=== PATIENT | female | born 1935 | race Caucasian/White ===

== ENCOUNTER → 2016-11-06 | Outpatient (CLI) | payer OTHER, BC ==
--- NOTE | 2016-11-05 13:14 | DIAGNOSTIC IMAGING REPORT ---
LEFT KNEE 4 OR MORE CLINICAL HISTORY: 81 years-old Female presenting with chronic left knee pain. TECHNIQUE: Bilateral frontal standing views of the knees and lateral, tunnel, and sunrise views of the left knee were obtained. COMPARISON: Correlation made to plain radiographs from 04/11/2015. FINDINGS: The right knee on standing view again demonstrates severe degenerative changes in the lateral compartment with joint space loss and subchondral sclerosis. Relative preservation of the medial compartment. On standing view, there has been interval worsening of degenerative change in the medial compartment of the left knee, which now demonstrates joint space loss and subchondral sclerosis that was not present in March 2015. The lateral compartment appears spared. Minimal osteophytosis at the patellofemoral compartment may be present. Trace left knee joint effusion may be present. No acute fracture. IMPRESSION: Significant interval worsening of degenerative change in the medial compartment of the left knee in comparison to April 06, 2015, which now demonstrates joint space loss and subchondral sclerosis. 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 Electronically signed by: Messi Garduno M.D. 11/05/2016 1:13 PM Dictated Date/Time: 11/05/2016 1:10 PM
[~2016-11-06] MED LIST: CRS/10 PO; LOSA50TA54 PO; MULT-513 PO; vit D PO
== END | disposition home or self-care (01) ==
LOC: C.RDSM 07:17
PROVIDERS: ATTEND Physician Assistant
DX: R52 Pain, unspecified (principal)

== ENCOUNTER → 2016-12-10 | Outpatient (CLI) | payer OTHER, BC ==
--- NOTE | 2016-12-10 15:50 | MAMMOGRAPHY REPORT ---
BILATERAL DIGITAL SCREENING MAMMOGRAM WITH CAD: 12/10/2016 CLINICAL HISTORY: Routine screening. Patient has no complaints. TECHNIQUE: Bilateral CC and MLO views were obtained. Current study was also evaluated with a Compute r Aided Detection (CAD) system. COMPARISON: Comparison is made to exams dated: 11/28/2015 mammogram, 11/15/2014 mammogram, 11/09/2013 m ammogram, 11/07/2012 mammogram, 10/02/2010 mammogram, and 09/06/2009 mammogram - [facility] enter. BREAST COMPOSITION: There are scattered areas of fibroglandular density in both breasts. FINDINGS: There is a stable small grouping of punctate benign-appearing microcalcifications in the 12 :00 left breast, unchanged dating back to at least 2008, therefore likely benign. No new suspicious mass, architectural distortion or cluster of microcalcifications is seen. IMPRESSION: ACR BI-RADS CATEGORY 1: NEGATIVE There is no mammographic evidence of malignancy. A 1 year screening mammogram is recommended. The pa tient will receive written notification of the results. Approximately 10% of breast cancers are not detected with mammography. A negative mammographic report should not delay biopsy if a clinically suggestive mass is present. Manisha aGrcia M.D. ay/:12/10/2016 15:19:07 [employer]: Nikia ESQUIVEL)(M), [facility] letter sent: Normal 1/2 BI-RADS Code: ACR BI-RADS Category 1: Negative
== END | disposition home or self-care (01) ==
LOC: C.MAMM 08:06
PROVIDERS: ATTEND Family Medicine
DX: Z12.31 Encounter for screening mammogram for malignant neoplasm of breast (principal)

== ENCOUNTER 2020-08-17 13:11 | Inpatient (IN) ==
[2020-08-17] MEDS ORDERED: CEFEPIME 2,000 MG/20 ML VIAL IV STA (13:46)
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
[2020-08-17] MEDS ORDERED: SODIUM CHLORIDE 0.9% 1000ML 1,000 ML IV SCH (14:00)
--- NOTE | 2020-08-17 14:19 | XRay Report ---
SINGLE VIEW CHEST CLINICAL HISTORY: Sepsis. FINDINGS: An AP, portable, upright chest radiograph is compared to study dated 06/02/2014 and correlat ed with chest CT dated 02/15/2013. The cardiomediastinal silhouette is unremarkable noting atheroscler otic calcification of the thoracic aorta. Chronic interstitial thickening is similar to previous. No airspace consolidation or large pleural effusion is identified. There is mild bibasilar scarring/atel ectasis. No pneumothorax is seen. The skeletal structures are osteopenic. The bony thorax is grossly intact. IMPRESSION: No active disease in the chest. ACT 112: Negative or not required by law. Electronically signed by: Dimitri Navarro M.D. 08/17/2020 2:18 PM
--- NOTE | 2020-08-17 14:19 | CT Scan Report ---
CT head/brain wo con CLINICAL HISTORY: 85 years-old Female with fall. Acute head and neck injury status post fall TECHNIQUE: Multiple axial CT images of the head were obtained without contrast. A dose lowering tech nique was utilized adhering to the principles of ALARA. COMPARISON: CT cervical spine of same day FINDINGS: No acute intracranial hemorrhage, midline shift, intracranial mass, hydrocephalus, territorial ischem ia or abnormal extra-axial collection. Age-related involutional changes. White matter hypodensities s uggestive of chronic microvascular ischemic disease. The calvarium is intact. Prior bilateral lens repair. The paranasal sinuses, mastoid air cells, and m iddle ear cavities are clear. IMPRESSION: No acute intracranial abnormality or calvarial fracture. ACT 112: Negative or not required by law. The above report was generated using voice recognition software. It may contain grammatical, syntax o r spelling errors. Electronically signed by: Alonso Carrillo M.D. 08/17/2020 2:18 PM
--- NOTE | 2020-08-17 14:26 | CT Scan Report ---
CT SCAN OF THE CERVICAL SPINE CLINICAL HISTORY: Fall. COMPARISON STUDY: No priors. TECHNIQUE: CT scan of the cervical spine is performed from the skull base to the upper thoracic spine . Images are reviewed in the axial, sagittal, and coronal planes. IV contrast was not administered fo r this examination. A dose lowering technique was utilized adhering to the principles of ALARA. CT DOSE: 1048.32 mGy.cm FINDINGS: Skeletal structures: The skeletal structures are osteopenic. There is no evidence of fracture or subl uxation involving the cervical spine. Vertebral body height is maintained. There is minimal anterolis thesis at C3-C4 and C4-C5. Retrolisthesis is noted at C5-C6. There is straightening of the cervical l ordosis. Anterior osteophytes are seen throughout. The odontoid process and lateral masses are intact . The atlantoaxial articulation is preserved noting advanced productive degenerative change. The spin ous processes appear intact. There is moderate to advanced multilevel cervical spondylosis. Uncoverte bral and facet arthropathy contribute to neural foraminal narrowing at most levels. Intervertebral discs: Advanced disc space narrowing is seen at C5-C6. Moderate to advanced narrowing is seen at C6-C7. Central canal: Posterior disc osteophyte complexes at C5-C6 and C6-C7 likely contribute to acquired c ompromise of the central canal. Soft tissues: The prevertebral and paraspinous soft tissues are within normal limits. The thyroid gla nd is enlarged and heterogeneous. Thyroid nodules measure up to 1.6 cm. Coarse calcifications are see n in the right lobe. These have been present dating back to a [address] There is atherosclerotic calcification of the cavernous carotid arteries. Calvarium: The visualized calvarium at the skull base appears intact. Brain parenchyma: Partially visualized brain parenchyma at the skull base is within normal limits. Sinuses and mastoids: The visualized paranasal sinuses are clear. The mastoid air cells are well pneu matized. Lung apices: Clear as visualized. IMPRESSION: 1. There is no evidence of fracture or subluxation involving the cervical spine. 2. Osteopenia and spondylotic change as above. ACT 112: Negative or not required by law. Electronically signed by: Dimitri Navarro M.D. 08/17/2020 2:25 PM
[2020-08-17 14:37] LABS: Alanine Aminotransferase 113 U/L (12-78); Albumin Level 3.2 gm/dl (3.4-5.0); Alkaline Phosphatase 194 U/L (45-117); Aspartate Aminotransferase 123 U/L (15-37); Bilirubin,Total 3.9 mg/dl (0.2-1); Blood Urea Nitrogen 47 mg/dl (7-18); Calcium 9.1 mg/dl (8.5-10.1); Carbon Dioxide 21 mmol/L (21-32); Chloride 101 mmol/L (98-107); Creatinine Clr Calc Pharmacy 15.7 ml/min; Est GFR (African American) 20.9 ml/min; Est GFR (Non-African American) 18.1 ml/min; Globulin 3.1 gm/dl (2.5-4.0); Glucose 221 mg/dl (70-99); Magnesium 2.1 mg/dl (1.8-2.4); Potassium 3.5 mmol/L (3.5-5.1); Sodium 134 mmol/L (136-145); Thyroid Stimulating Hormone 0.869 uIu/ml (0.300-4.500); Total Protein 6.3 gm/dl (6.4-8.2); Troponin I < 0.015 ng/ml (0-0.045)
[2020-08-17 14:38] LABS: Hematocrit (blood only) 34.1 % (37-47); Hemoglobin 12.1 g/dL (12.0-16.0); Mean Corpuscular Hemoglobin 32.7 pg (25-34); Mean Corpuscular Hgb Conc 35.5 g/dL (32-36); Mean Corpuscular Volume 92.2 fL (80-100); Platelet Count 11 K/uL (130-400); RDW Coefficient of Variation 13.2 % (11.5-14.5); RDW Standard Deviation 44.5 fL (36.4-46.3); White Blood Count 6.89 K/uL (4.8-10.8)
[2020-08-17 14:39] LABS: ALC (manual) 0.79 K/uL (1.2-3.4); ANC (manual) 5.62 K/uL (1.4-6.5); Anaplasmosis Smear(Rpt to DOH) Pos for Anaplasma; Eosinophils # (manual) 0.06 K/uL (0-0.5); Eosinophils % (manual) 0.9 %; Lymphocytes # (manual) 0.79 K/uL (1.2-3.4); Lymphocytes % (manual) 11.4 %; Monocytes # (manual) 0.42 K/uL (0.11-0.59); Monocytes % (manual) 6.1 %; Neutrophils # (manual) 5.62 K/uL (1.4-6.5); Neutrophils % (manual) 81.6 %; Platelet Estimate SIGNIFIC DECREASED (Normal)
[2020-08-17] MEDS ORDERED: DOXYCYCLINE HYCLATE 100 MG in DEXTROSE 5% 100 ML IV STA (14:49)
[2020-08-17] MEDS ORDERED: SODIUM CHLORIDE 0.9% 1000ML 1,000 ML IV ONE (14:50)
[2020-08-17] MEDS ORDERED: SODIUM CHLORIDE 0.9% 1000ML 250 ML IV ONE (14:50)
[2020-08-17 15:06] LABS: INR 1.1 (0.9-1.1); Partial Thromboplastin Ratio 1.1; Partial Thromboplastin Time 29.3 Seconds (21.0-31.0); Prothrombin Time 11.3 Seconds (9.0-12.0)
[2020-08-17 15:56] LABS: Appearance Urine Turbid (Clear); Bacteria Urine Automated 4+ (Negative); Blood Urine 3+ (Negative); Color Urine Dark Yellow; Epithelial Cell Urine Auto 20-30 /lpf (0-5); Glucose Urine UA Negative (Negative); Ketones Urine Trace (Negative); Leukocyte Esterase Urine 1+ (Negative); Nitrite Urine Positive (Negative); Protein Urine 2+ (Negative); RBC Urine Automated 0-4 /hpf (0-4); Urobilinogen Urine Negative (Negative); WBC Urine Automated >30 /hpf (0-5)
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
[2020-08-17 16:13] LABS: Bilirubin Urine 1+ (Negative)
[2020-08-17 16:24] LABS: Cast Urine Automated >30 /lpf (0-5)
[2020-08-17] MEDS ORDERED: GLUCAGON FOR INJ 1 MG VIAL SQ PRN (18:50)
[2020-08-17] MEDS ORDERED: DEXTROSE 50% 50 ML SYRINGE IV PRN (18:50)
[2020-08-17] MEDS ORDERED: GLUCOSE 10 TABS/TUBE PO PRN (18:50)
[2020-08-17] MEDS ORDERED: CARBOHYDRATES FOR HYPOGLYCEMIA PO PRN (18:50)
[2020-08-17] MEDS ORDERED: ASPIRIN 81 MG ECTAB PO SCH (18:50)
[2020-08-17] MEDS ORDERED: POLYETHYLENE (MIRALAX) 17 GM PACK PO PRN (18:50)
[2020-08-17] MEDS ORDERED: GLUCOSE 40% GEL 15 GM TUBE PO PRN (18:50)
[2020-08-17] MEDS: ACETAMINOPHEN 325 MG TAB PO PRN (19:18)
[2020-08-17] MEDS: SODIUM CHLORIDE 0.9% 1000ML 1,000 ML IV SCH (19:54)
[2020-08-17] MEDS: INSULIN GLARGINE SOLOSTAR 100 UNITS/ML 3 ML PEN SC SCH (21:05)
[2020-08-17] MEDS: INSULIN ASPART 100 UNITS/ML 3 ML PEN SC SCH ×2 (21:05→21:13)
[2020-08-17] MEDS ORDERED: HYDROmorphone INJ 0.5 MG/0.5 ML SYR IV PRN (22:30)
[2020-08-17] MEDS ORDERED: traMADol HCL 50 MG TABLET PO PRN (22:30)
[2020-08-17] MEDS ORDERED: CEFEPIME CONSULT ACTIVE PRN (23:05)
[2020-08-18] MEDS: DOXYCYCLINE HYCLATE 100 MG in DEXTROSE 5% 100 ML IV SCH ×2 (01:23→13:39)
[2020-08-18] MEDS ORDERED: guaiFENesin SUGAR FREE 200 MG/10 ML UDC PO PRN (03:30)
[2020-08-18] MEDS ORDERED: COUGH DROP (SUGAR FREE) LOZ 24 LOZ/1 BOX BUCCAL PRN (03:30)
[2020-08-18 07:35] LABS: Mean Corpuscular Hgb Conc 34.8 g/dL (32-36); Platelet Count 8 K/uL (130-400)
[2020-08-18 07:42] LABS: Albumin Globulin Ratio 0.8 (0.9-2); Albumin Level 2.6 gm/dl (3.4-5.0); BUN Creatinine Ratio 30.1 (10-20); Bilirubin Direct 2.5 mg/dl (0-0.2); Bilirubin,Total 3.2 mg/dl (0.2-1); Calcium 7.5 mg/dl (8.5-10.1); Creatinine Clr Calc Pharmacy 30.8 ml/min; Est GFR (African American) 46.5 ml/min; Est GFR (Non-African American) 40.1 ml/min; Globulin 3.4 gm/dl (2.5-4.0)
[2020-08-18] MEDS: SODIUM CHLORIDE 0.9% 1000ML 1,000 ML IV SCH (07:50)
[2020-08-18 07:52] LABS: Hematocrit (blood only) 30.2 % (37-47); Hemoglobin 10.5 g/dL (12.0-16.0); Mean Corpuscular Hemoglobin 32.4 pg (25-34); Mean Corpuscular Volume 93.2 fL (80-100); RDW Coefficient of Variation 13.3 % (11.5-14.5); RDW Standard Deviation 45.6 fL (36.4-46.3); Red Blood Count 3.24 M/uL (4.2-5.4); White Blood Count 5.98 K/uL (4.8-10.8)
[2020-08-18] MEDS: INSULIN GLARGINE SOLOSTAR 100 UNITS/ML 3 ML PEN SC SCH ×2 (07:58→20:36)
[2020-08-18] MEDS: INSULIN ASPART 100 UNITS/ML 3 ML PEN SC SCH ×4 (07:58→20:37)
--- NOTE | 2020-08-18 08:03 | CT Scan Report ---
CT OF THE ABDOMEN AND PELVIS WITHOUT CONTRAST CLINICAL HISTORY: Abdominal pain. Recent fall. COMPARISON STUDY: No previous studies for comparison. TECHNIQUE: Axial images of the abdomen and pelvis were obtained without IV contrast. Images were revi ewed in the axial, sagittal, and coronal planes. Automated exposure control was utilized for the jovanna dy. A dose lowering technique was utilized adhering to the principles of ALARA. FINDINGS: Trace bilateral pleural effusions are noted. Associated airspace opacity reflects atelectas is. There is a trace pericardial effusion. A 2 mm right renal calculus is present. There are no urete ral calculi. There is no hydronephrosis or hydroureter. Evaluation of the remainder of the abdomen an d pelvis is suboptimal on this unenhanced exam. There are gallstones within the gallbladder. The gall bladder is not distended. There is no evidence for a bowel obstruction. Unenhanced images of the live r, spleen, adrenal glands and pancreas are unremarkable. There is no biliary or pancreatic ductal dil atation. There is moderate plaque of the abdominal aorta. The appendix is not visualized. There is si gmoid diverticulosis without evidence for acute diverticulitis. No acute fractures identified within visualized skeletal structures. IMPRESSION: 1. 2 mm right renal calculus. No ureteral calculi or hydronephrosis. 2. Cholelithiasis. 3. No bowel obstruction. 4. Trace bilateral pleural effusions and a trace pericardial effusion. ACT 112: Negative or not required by law. Electronically signed by: Patricio Ivey M.D. 08/18/2020 8:02 AM
[2020-08-18] MEDS ORDERED: POTASSIUM CHLORIDE PWD 20 MEQ PACK PO ONE ×2 (08:06→16:00)
[2020-08-18 08:23] LABS: ALC (manual) 1.97 K/uL (1.2-3.4); ANC (manual) 3.77 K/uL (1.4-6.5); Eosinophils # (manual) 0.06 K/uL (0-0.5); Lymphocytes # (manual) 1.97 K/uL (1.2-3.4); Monocytes # (manual) 0.18 K/uL (0.11-0.59); Neutrophils # (manual) 3.77 K/uL (1.4-6.5)
--- NOTE | 2020-08-18 08:49 | Electrocardiogram Report ---
Test Reason : Blood Pressure : / mmHG Vent. Rate : 103 BPM Atrial Rate : 103 BPM P-R Int : 148 ms QRS Dur : 070 ms QT Int : 326 ms P-R-T Axes : 069 -33 060 degrees QTc Int : 427 ms Sinus tachycardia with Premature atrial complexes Left axis deviation Nondiagnostic inferior Q waves Poor R wave progression, consider anterior GA vs. lead placement vs. LVH Abnormal ECG When compared with ECG of 15-FEB-2013 14:04, Premature atrial complexes are now Present Confirmed by Sanjeev Gregg ([id number]) on 08/18/2020 8:48:53 AM Referred By: REFERRED SELF Confirmed By:Sanjeev Gregg
--- NOTE | 2020-08-18 10:07 | XRay Report ---
XR chest 1V portable CLINICAL HISTORY: Shortness of breath. COMPARISON STUDY: Chest radiograph August 17, 2020 FINDINGS: Lung volumes are normal. There are trace bilateral pleural fusions. Mild bibasilar opacitie s are present. There is pulmonary vascular congestion with possible mild pulmonary edema. There is no pneumothorax. IMPRESSION: 1. Pulmonary vascular congestion with suspected mild pulmonary edema. 2. Trace bilateral pleural fusions with bibasilar opacities. ACT 112: Negative or not required by law. Electronically signed by: Patricio Ivey M.D. 08/18/2020 10:05 AM
[2020-08-18] MEDS ORDERED: FUROSEMIDE 20 MG TAB PO ONE (11:45)
--- NOTE | 2020-08-18 14:51 | Hospitalist Progress Note ---
Date of Service August 18, 2020 Assessment & Plan (1) Sepsis: (2) Anaplasmosis: Patient is an 85 yr female with H/O DM II, HTN, dyslipidemia, CKD III presented to ER with complaint of weakness and myalgias x3 days. Sepsis Anaplasmosis Transaminitis, Thrombocytopenia likely due to above Peripheral Smear: showed Intracytoplasmic neutrophilic inclusions Blood/Urine Culture: pending Continue Cefepime, doxycycline Received IV fluids Will transfuse platelets today Monitor LFTs, CBC daily Mild pulmonary edema Likely secondary to IV fluids IV fluids discontinued Saturating well on room air Monitor volume status (3) Fall: (4) Weakness: Multiple falls CT head: No acute intracranial abnormality or calvarial fracture. CT C-spine: No acute fracture Likely due to above Fall precautions PT OT (5) Acute kidney injury superimposed on CKD: YOGI on CKD III Cr:2.36>1.22 Hold Losartan, Sulindac Avoid Nephrotoxic agents as able Monitor renal function Avid NSAIDs (6) Elevated LFTs: Management as above (7) Thrombocytopenia: Likely secondary to anaplasmosis Transfuse PRN (8) Diabetes mellitus, type II: A1c: 5.6 on 06/10/2020 Hold Metformin Continue insulin therapy while hospitalized Monitor BGs (9) HTN (hypertension): Blood pressure relatively low Losartan held due to YOGI Monitor BP (10) Dyslipidemia: Resume Rosuvastatin as able DVT Px SCDs Re:Thrombocytopenia Code Status DNR/DNI Disposition PT/OT prior to discharge Follows with Dr Landry for routine care Admission and Anticipated Discharge Date Admission Date: August 17, 2020 Subjective Patient is seen and examined at bedside States feeling much better today Reports having mild cough today Also states having generalized abdominal discomfort Denies chest pain, dyspnea, nausea, vomiting, diarrhea Updated patient's son over the phone Offers no other complaints Review of Systems Review of Systems: All systems reviewed & are unremarkable except as noted in HPI & below Physical Exam Physical Exam: Physical Exam: Vitals signs as noted above General Appearance:Elderly, Moderately built and nourished, no apparent distress Head: normocephalic, Atraumatic Eyes: normal inspection, EOMI Neck: supple, Trachea midline Respiratory/Chest: Normal breath sounds, Right Basal Crackles Cardiovascular: S1, S2, No murmur Abdomen/GI:Soft, Non tender, Bowel sounds present Extremities/Musculoskeletal:normal inspection, Trace pedal edema Neurologic/Psych:AAOX3, grossly no focal neurological deficits Skin: normal color, warm Results & Data Results & Data ([facility]) Vital Signs (Past 12 Hours) Vital Signs Temp Pulse Pulse Resp BP BP Pulse Ox 08/18/20 14:01 36 C L 82 18 107/67 96 08/18/20 13:59 37 C 90 18 106/54 L 95 08/18/20 13:45 36.8 C 88 20 105/68 96 08/18/20 11:49 36.5 C 89 18 93/58 L 97 08/18/20 08:03 36.5 C 83 18 95/60 L 95 08/18/20 08:00 78 08/18/20 03:20 36.7 C 86 18 95/61 L 95 Laboratory Results Short CBC 08/18/20 Range/Units 05:56 WBC 5.98 (4.8-10.8) K/uL Hgb 10.5 L (12.0-16.0) g/dL Hct 30.2 L (37-47) % Plt Count 8 L* (130-400) K/uL BMP 08/18/20 05:56 Sodium 141 D Potassium 3.0 L Chloride 111 H Carbon Dioxide 21 BUN 37 H Creatinine 1.22 H D Glucose 101 H Calcium 7.5 L D Cardiac Enzymes 08/17/20 08/18/20 Range/Units 13:40 05:56 Total Creatine Kinase 325 H 406 H (26-192) U/L Liver Function 08/18/20 Range/Units 05:56 Total Bilirubin 3.2 H (0.2-1) mg/dl Direct Bilirubin 2.5 H (0-0.2) mg/dl AST 101 H (15-37) U/L ALT 90 H (12-78) U/L Alkaline Phosphatase 174 H (45-117) U/L Albumin 2.6 L (3.4-5.0) gm/dl Urine 08/17/20 Range/Units 15:22 Urine Color Dark Yellow Urine Appearance Turbid A (Clear) Urine pH 5.0 (4.5-7.5) Ur Specific Holliday 1.020 (1.000-1.030) Urine Protein 2+ H (Negative) Urine Glucose (UA) Negative (Negative)
[2020-08-18] MEDS: CEFEPIME 1,000 MG in SYRINGE 0 ML IV SCH (15:46)
[2020-08-19] MEDS: DOXYCYCLINE HYCLATE 100 MG in DEXTROSE 5% 100 ML IV SCH ×2 (02:38→13:07)
[2020-08-19 06:29] LABS: Hematocrit (blood only) 31.1 % (37-47); Hemoglobin 11.2 g/dL (12.0-16.0); Mean Corpuscular Hemoglobin 32.7 pg (25-34); Mean Corpuscular Volume 90.9 fL (80-100); Platelet Count 16 K/uL (130-400); RDW Coefficient of Variation 13.6 % (11.5-14.5); RDW Standard Deviation 45.4 fL (36.4-46.3); Red Blood Count 3.42 M/uL (4.2-5.4); White Blood Count 6.45 K/uL (4.8-10.8)
[2020-08-19 06:30] LABS: Basophils # (auto) 0.01 K/uL (0-0.2); Basophils % (auto) 0.2 %; Eosinophils # (auto) 0.05 K/uL (0-0.5); Eosinophils % (auto) 0.8 %; Immature Granulocytes # (auto) 0.05 K/uL (0.00-0.02); Immature Granulocytes % (auto) 0.8 %; Lymphocytes # (auto) 1.88 K/uL (1.2-3.4); Lymphocytes % (auto) 29.1 %; Monocytes # (auto) 0.99 K/uL (0.11-0.59); Monocytes % (auto) 15.3 %; Neutrophils # (auto) 3.47 K/uL (1.4-6.5); Neutrophils % (auto) 53.8 %; Platelet Estimate SIGNIFIC DECREASED (Normal)
[2020-08-19 06:34] LABS: Albumin Globulin Ratio 0.9 (0.9-2); Albumin Level 2.8 gm/dl (3.4-5.0); BUN Creatinine Ratio 28.1 (10-20); Bilirubin,Total 2.2 mg/dl (0.2-1); Calcium 8.2 mg/dl (8.5-10.1); Creatinine Clr Calc Pharmacy 40.4 ml/min; Est GFR (African American) 64.5 ml/min; Est GFR (Non-African American) 55.6 ml/min; Magnesium 1.8 mg/dl (1.8-2.4); Potassium 3.1 mmol/L (3.5-5.1); Total Protein 5.8 gm/dl (6.4-8.2)
[2020-08-19] MEDS ORDERED: POTASSIUM CHLORIDE CRTAB 20 MEQ TABCR PO ONE ×2 (08:02→16:00)
[2020-08-19] MEDS: INSULIN ASPART 100 UNITS/ML 3 ML PEN SC SCH ×4 (08:42→20:44)
[2020-08-19] MEDS: INSULIN GLARGINE SOLOSTAR 100 UNITS/ML 3 ML PEN SC SCH ×2 (08:43→21:10)
[2020-08-19] MEDS ORDERED: Nursing to Pharmacy Communication SCH (10:45)
[2020-08-19] MEDS ORDERED: bisacodyL 5 MG TABEC PO PRN (11:52)
[2020-08-19] MEDS ORDERED: bisacodyL 5 MG TABEC PO ONE (11:52)
[2020-08-19] MEDS: CEFEPIME 1,000 MG in SYRINGE 0 ML IV SCH (15:27)
[2020-08-19] MEDS ORDERED: ASPIRIN 81 MG ECTAB PO SCH (16:00)
--- NOTE | 2020-08-19 17:04 | Hospitalist Progress Note ---
Date of Service August 19, 2020 Assessment & Plan (1) Sepsis: (2) Anaplasmosis: Patient is an 85 yr female with H/O DM II, HTN, dyslipidemia, CKD III presented to ER with complaint of weakness and myalgias x3 days. Sepsis Anaplasmosis Transaminitis, Thrombocytopenia likely due to above Rule out Bacteremia Peripheral Smear: showed Intracytoplasmic neutrophilic inclusions S/P 1 unit Platelet transfusion Blood Culture: 03/19 : Gram-positive bacilli--likely contamination We will repeat blood cultures. Continue Doxycycline Received IV fluids Monitor LFTs, Platelet count Mild pulmonary edema Likely secondary to IV fluids IV fluids discontinued Saturating well on room air Monitor volume status Improved Suspected UTI Urine Cx: Gram Negative bacilli Received Cefepime Day #3 Hypokalemia Replace electrolytes as needed Monitor (3) Fall: (4) Weakness: Multiple falls CT head: No acute intracranial abnormality or calvarial fracture. CT C-spine: No acute fracture Likely due to above Fall precautions PT OT (5) Acute kidney injury superimposed on CKD: YOGI on CKD III Cr:2.36>1.22> 0.93 Hold Losartan, Sulindac Avoid Nephrotoxic agents as able Monitor renal function Avid NSAIDs (6) Elevated LFTs: Management as above (7) Thrombocytopenia: Likely secondary to anaplasmosis Transfuse PRN (8) Diabetes mellitus, type II: A1c: 5.6 on 06/10/2020 Hold Metformin Continue insulin therapy while hospitalized Monitor BGs (9) HTN (hypertension): Blood pressure relatively low Losartan held due to YOGI Monitor BP (10) Dyslipidemia: Resume Rosuvastatin DVT Px SCDs Re:Thrombocytopenia Code Status DNR/DNI Disposition PT/OT prior to discharge Follows with Dr Landry for routine care Admission and Anticipated Discharge Date Admission Date: August 17, 2020 Subjective Patient is seen and examined at bedside Reports constipation Otherwise feels well Denies chest pain, dyspnea, nausea, vomiting, diarrhea, abd pain Offers no other complaints Review of Systems Review of Systems: All systems reviewed & are unremarkable except as noted in HPI & below Physical Exam Physical Exam: Physical Exam: Vitals signs as noted above General Appearance:Elderly, Moderately built and nourished, no apparent distress Head: normocephalic, Atraumatic Eyes: normal inspection, EOMI Neck: supple, Trachea midline Respiratory/Chest: Normal breath sounds, CTA Cardiovascular: S1, S2, No murmur Abdomen/GI:Soft, Non tender, Bowel sounds present Extremities/Musculoskeletal:normal inspection, Trace pedal edema Neurologic/Psych:AAOX3, grossly no focal neurological deficits Skin: normal color, warm Results & Data Results & Data ([facility]) Vital Signs (Past 12 Hours) Vital Signs Temp Pulse Pulse Resp BP BP Pulse Ox 08/19/20 16:14 36.6 C 90 17 129/61 95 08/19/20 11:59 36.6 C 94 H 17 113/72 96 08/19/20 08:09 36.7 C 95 H 17 121/69 93 08/19/20 08:00 88 Laboratory Results Short CBC 08/19/20 Range/Units 05:30 WBC 6.45 (4.8-10.8) K/uL Hgb 11.2 L (12.0-16.0) g/dL Hct 31.1 L (37-47) % Plt Count 16 L* D (130-400) K/uL BMP 08/19/20 05:30 Sodium 139 Potassium 3.1 L Chloride 107 Carbon Dioxide 24 BUN 26 H Creatinine 0.93 Glucose 118 H Calcium 8.2 L Liver Function 08/19/20 Range/Units 05:30 Total Bilirubin 2.2 H (0.2-1) mg/dl AST 97 H (15-37) U/L ALT 91 H (12-78) U/L Alkaline Phosphatase 202 H (45-117) U/L Albumin 2.8 L (3.4-5.0) gm/dl
[2020-08-20] MEDS: DOXYCYCLINE HYCLATE 100 MG in DEXTROSE 5% 100 ML IV SCH ×2 (01:24→13:08)
[2020-08-20 07:30] LABS: ALC (manual) 1.23 K/uL (1.2-3.4); ANC (manual) 3.53 K/uL (1.4-6.5); Basophils # (manual) 0.05 K/uL (0-0.2); Basophils % (manual) 0.9 %; Eosinophils # (manual) 0.05 K/uL (0-0.5); Eosinophils % (manual) 0.9 %; Hematocrit (blood only) 29.5 % (37-47); Hemoglobin 10.4 g/dL (12.0-16.0); Lymphocytes # (manual) 1.23 K/uL (1.2-3.4); Lymphocytes % (manual) 20.9 %; Mean Corpuscular Hemoglobin 32.8 pg (25-34); Mean Corpuscular Hgb Conc 35.3 g/dL (32-36); Mean Corpuscular Volume 93.1 fL (80-100); Metamyelocytes # (manual) 0.05 K/uL (0-0); Metamyelocytes % (manual) 0.9 %; Monocytes # (manual) 0.93 K/uL (0.11-0.59); Monocytes % (manual) 15.7 %; Myelocytes # (manual) 0.05 K/uL (0-0); Myelocytes % (manual) 0.9 %; Neutrophils # (manual) 3.53 K/uL (1.4-6.5); Neutrophils % (manual) 59.8 %; Platelet Count 26 K/uL (130-400); Platelet Estimate SIGNIFIC DECREASED (Normal); RDW Coefficient of Variation 13.8 % (11.5-14.5); RDW Standard Deviation 46.6 fL (36.4-46.3); Red Blood Count 3.17 M/uL (4.2-5.4); Target Cells 1+
[2020-08-20 07:46] LABS: Albumin Globulin Ratio 0.9 (0.9-2); Albumin Level 2.7 gm/dl (3.4-5.0); BUN Creatinine Ratio 28.5 (10-20); Bilirubin,Total 1.9 mg/dl (0.2-1); Calcium 8.2 mg/dl (8.5-10.1); Creatinine Clr Calc Pharmacy 50.4 ml/min; Est GFR (Non-African American) 73.4 ml/min; Magnesium 1.9 mg/dl (1.8-2.4); Potassium 3.6 mmol/L (3.5-5.1); Total Protein 5.7 gm/dl (6.4-8.2)
[2020-08-20] MEDS: ROSUVASTATIN CALCIUM 10 MG TAB PO SCH (08:43)
[2020-08-20] MEDS: INSULIN ASPART 100 UNITS/ML 3 ML PEN SC SCH ×4 (08:43→20:40)
[2020-08-20] MEDS: INSULIN GLARGINE SOLOSTAR 100 UNITS/ML 3 ML PEN SC SCH ×2 (08:43→20:40)
[2020-08-20] MEDS: ACETAMINOPHEN 325 MG TAB PO PRN (15:57)
--- NOTE | 2020-08-20 17:30 | Hospitalist Progress Note ---
Date of Service August 20, 2020 Assessment & Plan (1) Sepsis: (2) Anaplasmosis: Patient is an 85 yr female with H/O DM II, HTN, dyslipidemia, CKD III presented to ER with complaint of weakness and myalgias x3 days. Sepsis Anaplasmosis Transaminitis, Thrombocytopenia likely due to above Rule out Bacteremia Peripheral Smear: showed Intracytoplasmic neutrophilic inclusions S/P 1 unit Platelet transfusion Blood Culture: 03/19 : Corynebacterium species--likely contamination Repeat blood cultures.: No growth to date Continue Doxycycline Received IV fluids Monitor LFTs, Platelet count Thrombocytopenia improving Mild pulmonary edema Likely secondary to IV fluids IV fluids discontinued Saturating well on room air Monitor volume status Improved Suspected UTI Urine Cx: Gram Negative bacilli (6000) Received Cefepime Day #3 Hypokalemia Replace electrolytes as needed Monitor (3) Fall: (4) Weakness: Multiple falls CT head: No acute intracranial abnormality or calvarial fracture. CT C-spine: No acute fracture Likely due to above Fall precautions PT OT (5) Acute kidney injury superimposed on CKD: YOGI on CKD III Cr:2.36>1.22> 0.93/>0.74 Hold Losartan, Sulindac Avoid Nephrotoxic agents as able Monitor renal function Avid NSAIDs (6) Elevated LFTs: Management as above (7) Thrombocytopenia: Likely secondary to anaplasmosis Transfuse PRN (8) Diabetes mellitus, type II: A1c: 5.6 on 06/10/2020 Hold Metformin Continue insulin therapy while hospitalized Monitor BGs (9) HTN (hypertension): Blood pressure relatively low Losartan held due to YOGI Monitor BP (10) Dyslipidemia: Continue Rosuvastatin DVT Px SCDs Re:Thrombocytopenia Code Status DNR/DNI Disposition PT/OT prior to discharge Follows with Dr Landry for routine care Admission and Anticipated Discharge Date Admission Date: August 17, 2020 Subjective Patient is seen and examined at bedside No new complaints Denies chest pain, dyspnea, nausea, vomiting, diarrhea, abd pain Eager to get discharged Review of Systems Review of Systems: All systems reviewed & are unremarkable except as noted in HPI & below Physical Exam Physical Exam: Physical Exam: Vitals signs as noted above General Appearance:Elderly, Moderately built and nourished, no apparent distress Head: normocephalic, Atraumatic Eyes: normal inspection, EOMI Neck: supple, Trachea midline Respiratory/Chest: Normal breath sounds, CTA Cardiovascular: S1, S2, No murmur Abdomen/GI:Soft, Non tender, Bowel sounds present Extremities/Musculoskeletal:normal inspection, Trace pedal edema Neurologic/Psych:AAOX3, grossly no focal neurological deficits Skin: normal color, warm Results & Data Results & Data ([facility]) Vital Signs (Past 12 Hours) Vital Signs Temp Pulse Pulse Resp BP BP Pulse Ox 08/20/20 16:00 36.6 C 92 H 20 95/60 L 95 08/20/20 06:34 36.6 C 92 H 16 121/71 92 Laboratory Results Short CBC 08/20/20 Range/Units 06:25 WBC 5.90 (4.8-10.8) K/uL Hgb 10.4 L (12.0-16.0) g/dL Hct 29.5 L (37-47) % Plt Count 26 L* D (130-400) K/uL BMP 08/20/20 06:25 Sodium 139 Potassium 3.6 D Chloride 108 H Carbon Dioxide 25 BUN 21 H Creatinine 0.74 Glucose 109 H Calcium 8.2 L Liver Function 08/20/20 Range/Units 06:25 Total Bilirubin 1.9 H (0.2-1) mg/dl AST 71 H (15-37) U/L ALT 82 H (12-78) U/L Alkaline Phosphatase 195 H (45-117) U/L Albumin 2.7 L (3.4-5.0) gm/dl
[2020-08-20] MEDS: DOXYCYCLINE HYCLATE 100 MG CAP PO SCH (20:33)
[2020-08-21 07:02] LABS: Hematocrit (blood only) 28.2 % (37-47); Hemoglobin 9.9 g/dL (12.0-16.0); Mean Corpuscular Hemoglobin 31.9 pg (25-34); Mean Corpuscular Hgb Conc 35.1 g/dL (32-36); RDW Coefficient of Variation 14.1 % (11.5-14.5); RDW Standard Deviation 46.9 fL (36.4-46.3); White Blood Count 5.59 K/uL (4.8-10.8)
[2020-08-21 07:12] LABS: Basophils # (auto) 0.01 K/uL (0-0.2); Basophils % (auto) 0.2 %; Eosinophils # (auto) 0.04 K/uL (0-0.5); Eosinophils % (auto) 0.7 %; Hypogranular Neutrophils 1+; Immature Granulocytes # (auto) 0.07 K/uL (0.00-0.02); Immature Granulocytes % (auto) 1.3 %; Lymphocytes # (auto) 1.74 K/uL (1.2-3.4); Lymphocytes % (auto) 31.1 %; Mean Platelet Volume 13.6 fL (7.4-10.4); Monocytes # (auto) 1.34 K/uL (0.11-0.59); Neutrophils # (auto) 2.39 K/uL (1.4-6.5); Neutrophils % (auto) 42.7 %; Platelet Count 54 K/uL (130-400); Platelet Estimate Decreased (Normal); Target Cells 1+
[2020-08-21 07:18] LABS: Albumin Level 2.7 gm/dl (3.4-5.0); Calcium 8.6 mg/dl (8.5-10.1); Creatinine Clr Calc Pharmacy 59.2 ml/min; Est GFR (African American) 94.1 ml/min; Est GFR (Non-African American) 81.2 ml/min; Magnesium 1.8 mg/dl (1.8-2.4); Potassium 3.5 mmol/L (3.5-5.1)
[2020-08-21 07:21] LABS: Albumin Globulin Ratio 0.9 (0.9-2); Bilirubin,Total 1.5 mg/dl (0.2-1); Globulin 2.9 gm/dl (2.5-4.0); Total Protein 5.6 gm/dl (6.4-8.2)
[2020-08-21] MEDS: INSULIN GLARGINE SOLOSTAR 100 UNITS/ML 3 ML PEN SC SCH ×2 (09:03→20:47)
[2020-08-21] MEDS: DOXYCYCLINE HYCLATE 100 MG CAP PO SCH ×2 (09:07→20:36)
[2020-08-21] MEDS: ROSUVASTATIN CALCIUM 10 MG TAB PO SCH (09:07)
[2020-08-21] MEDS: INSULIN ASPART 100 UNITS/ML 3 ML PEN SC SCH ×4 (09:07→20:53)
--- NOTE | 2020-08-21 15:28 | Hospitalist Progress Note ---
Date of Service August 21, 2020 Assessment & Plan (1) Sepsis: (2) Anaplasmosis: Patient is an 85 yr female with H/O DM II, HTN, dyslipidemia, CKD III presented to ER with complaint of weakness and myalgias x3 days. Sepsis Anaplasmosis Transaminitis, Thrombocytopenia likely due to above Rule out Bacteremia Peripheral Smear: showed Intracytoplasmic neutrophilic inclusions S/P 1 unit Platelet transfusion Blood Culture: 03/19 : Corynebacterium species--likely contamination Coagulase-negative staph not lugdunensis Repeat blood cultures.: No growth to date Continue Doxycycline Received IV fluids Monitor LFTs, Platelet count Platelet counts improved to 54K Follow up final cultures Mild pulmonary edema Likely secondary to IV fluids IV fluids discontinued Saturating well on room air Monitor volume status Improved Suspected UTI Urine Cx: Gram Negative bacilli (6000) Received Cefepime Day #3 Hypokalemia Replace electrolytes as needed Monitor (3) Fall: (4) Weakness: Multiple falls CT head: No acute intracranial abnormality or calvarial fracture. CT C-spine: No acute fracture Likely due to above Fall precautions PT OT (5) Acute kidney injury superimposed on CKD: YOGI on CKD III Cr:2.36>1.22> 0.93/>0.74 Hold Losartan, Sulindac Avoid Nephrotoxic agents as able Monitor renal function Avid NSAIDs (6) Elevated LFTs: Management as above (7) Thrombocytopenia: Likely secondary to anaplasmosis Transfuse PRN (8) Diabetes mellitus, type II: A1c: 5.6 on 06/10/2020 Hold Metformin Continue insulin therapy while hospitalized Monitor BGs (9) HTN (hypertension): Blood pressure relatively low Losartan held due to YOGI Monitor BP (10) Dyslipidemia: Continue Rosuvastatin DVT Px SCDs Re:Thrombocytopenia Code Status DNR/DNI Disposition PT/OT prior to discharge Follows with Dr Landry for routine care Admission and Anticipated Discharge Date Admission Date: August 17, 2020 Subjective Patient is seen and examined at bedside States feeling well today Denies chest pain, dyspnea, nausea, vomiting, diarrhea, abd pain Offers no complaints Review of Systems Review of Systems: All systems reviewed & are unremarkable except as noted in HPI & below Physical Exam Physical Exam: Physical Exam: Vitals signs as noted above General Appearance:Elderly, Moderately built and nourished, no apparent distress Head: normocephalic, Atraumatic Eyes: normal inspection, EOMI Neck: supple, Trachea midline Respiratory/Chest: Normal breath sounds, CTA Cardiovascular: S1, S2, No murmur Abdomen/GI:Soft, Non tender, Bowel sounds present Extremities/Musculoskeletal:normal inspection, Trace pedal edema Neurologic/Psych:AAOX3, grossly no focal neurological deficits Skin: normal color, warm Results & Data Results & Data ([facility]) Vital Signs (Past 12 Hours) Vital Signs Temp Pulse Resp BP Pulse Ox 08/21/20 05:58 37 C 93 H 16 101/56 L 94 Laboratory Results Short CBC 08/21/20 Range/Units 06:34 WBC 5.59 (4.8-10.8) K/uL Hgb 9.9 L (12.0-16.0) g/dL Hct 28.2 L (37-47) % Plt Count 54 L D (130-400) K/uL BMP 08/21/20 06:34 Sodium 139 Potassium 3.5 Chloride 108 H Carbon Dioxide 23 BUN 23 H Creatinine 0.63 Glucose 109 H Calcium 8.6 Liver Function 08/21/20 Range/Units 06:34 Total Bilirubin 1.5 H (0.2-1) mg/dl AST 55 H (15-37) U/L ALT 72 (12-78) U/L Alkaline Phosphatase 173 H (45-117) U/L Albumin 2.7 L (3.4-5.0) gm/dl
[2020-08-21 22:07] LABS: Hematocrit (blood only) 31.1 % (37-47); Hemoglobin 10.8 g/dL (12.0-16.0); Mean Corpuscular Hemoglobin 33.1 pg (25-34); Mean Corpuscular Hgb Conc 34.7 g/dL (32-36); Mean Corpuscular Volume 95.4 fL (80-100); Mean Platelet Volume 14.3 fL (7.4-10.4); Platelet Count 87 K/uL (130-400); RDW Coefficient of Variation 14.1 % (11.5-14.5); RDW Standard Deviation 48.5 fL (36.4-46.3); Red Blood Count 3.26 M/uL (4.2-5.4); White Blood Count 5.75 K/uL (4.8-10.8)
[2020-08-21 22:08] LABS: Basophils # (auto) 0.01 K/uL (0-0.2); Basophils % (auto) 0.2 %; Eosinophils # (auto) 0.03 K/uL (0-0.5); Eosinophils % (auto) 0.5 %; Immature Granulocytes # (auto) 0.08 K/uL (0.00-0.02); Immature Granulocytes % (auto) 1.4 %; Lymphocytes # (auto) 1.87 K/uL (1.2-3.4); Lymphocytes % (auto) 32.5 %; Monocytes # (auto) 1.31 K/uL (0.11-0.59); Monocytes % (auto) 22.8 %; Neutrophils # (auto) 2.45 K/uL (1.4-6.5); Neutrophils % (auto) 42.6 %; Platelet Estimate Decreased (Normal)
[2020-08-22 07:42] LABS: Hematocrit (blood only) 29.3 % (37-47); Mean Corpuscular Hemoglobin 31.7 pg (25-34); Mean Corpuscular Hgb Conc 34.1 g/dL (32-36); Mean Platelet Volume 13.1 fL (7.4-10.4); Platelet Count 102 K/uL (130-400); Platelet Estimate Decreased (Normal); RDW Coefficient of Variation 14.4 % (11.5-14.5); RDW Standard Deviation 48.1 fL (36.4-46.3); Red Blood Count 3.15 M/uL (4.2-5.4); White Blood Count 5.49 K/uL (4.8-10.8)
[2020-08-22 07:55] LABS: BUN Creatinine Ratio 31.2 (10-20); Calcium 8.3 mg/dl (8.5-10.1); Creatinine Clr Calc Pharmacy 54.9 ml/min; Est GFR (African American) 91.8 ml/min; Est GFR (Non-African American) 79.2 ml/min; Potassium 3.7 mmol/L (3.5-5.1)
[2020-08-22] MEDS: ROSUVASTATIN CALCIUM 10 MG TAB PO SCH (08:59)
[2020-08-22] MEDS: DOXYCYCLINE HYCLATE 100 MG CAP PO SCH (08:59)
[2020-08-22] MEDS: INSULIN ASPART 100 UNITS/ML 3 ML PEN SC SCH ×2 (09:01→12:39)
[2020-08-22] MEDS: INSULIN GLARGINE SOLOSTAR 100 UNITS/ML 3 ML PEN SC SCH (09:02)
--- NOTE | 2020-08-22 12:14 | Hospitalist Progress Note ---
Date of Service August 22, 2020 Assessment & Plan (1) Sepsis: (2) Anaplasmosis: Patient is an 85 yr female with H/O DM II, HTN, dyslipidemia, CKD III presented to ER with complaint of weakness and myalgias x3 days. Sepsis Anaplasmosis Transaminitis, Thrombocytopenia likely due to above Rule out Bacteremia Peripheral Smear: showed Intracytoplasmic neutrophilic inclusions S/P 1 unit Platelet transfusion Blood Culture: 03/19 : Corynebacterium species--likely contamination Coagulase-negative staph not lugdunensis Repeat blood cultures.: No growth to date Continue Doxycycline Received IV fluids LFTs improved Platelet count improved to 102K Mild pulmonary edema Likely secondary to IV fluids IV fluids discontinued Saturating well on room air Monitor volume status Resolved Suspected UTI Urine Cx: Gram Negative bacilli (6000) Received Cefepime Day #3 Hypokalemia Replace electrolytes as needed Monitor (3) Fall: (4) Weakness: Multiple falls CT head: No acute intracranial abnormality or calvarial fracture. CT C-spine: No acute fracture Likely due to above Fall precautions PT OT (5) Acute kidney injury superimposed on CKD: YOGI on CKD III Cr:2.36>1.22> 0.93>0.74>0.68 Hold Losartan, Sulindac Avoid Nephrotoxic agents as able Monitor renal function Avid NSAIDs (6) Elevated LFTs: Management as above (7) Thrombocytopenia: Likely secondary to anaplasmosis Transfuse PRN (8) Diabetes mellitus, type II: A1c: 5.6 on 06/10/2020 Hold Metformin Continue insulin therapy while hospitalized Monitor BGs (9) HTN (hypertension): Blood pressure relatively low Losartan held due to YOGI Monitor BP (10) Dyslipidemia: Continue Rosuvastatin DVT Px SCDs Re:Thrombocytopenia Code Status DNR/DNI Disposition Home Admission and Anticipated Discharge Date Admission Date: August 17, 2020 Subjective Patient is seen and examined at bedside No new complaints Eager to get discharged Denies chest pain, dyspnea, nausea, vomiting, diarrhea, abd pain Review of Systems Review of Systems: All systems reviewed & are unremarkable except as noted in HPI & below Physical Exam 2 Physical Exam: Physical Exam: Vitals signs as noted above General Appearance:Elderly, Moderately built and nourished, no apparent distress Head: normocephalic, Atraumatic Eyes: normal inspection, EOMI Neck: supple, Trachea midline Respiratory/Chest: Normal breath sounds, CTA Cardiovascular: S1, S2, No murmur Abdomen/GI:Soft, Non tender, Bowel sounds present Extremities/Musculoskeletal:normal inspection, Trace pedal edema Neurologic/Psych:AAOX3, grossly no focal neurological deficits Skin: normal color, warm Results & Data Results & Data ([facility]) Vital Signs (Past 12 Hours) Vital Signs Temp Pulse Pulse Resp BP Pulse Ox 08/22/20 12:07 36.5 C 89 20 115/73 96 08/22/20 07:30 36.7 C 73 21 136/70 95 08/22/20 07:26 36.7 C 89 16 124/62 93 Laboratory Results Short CBC 08/21/20 08/22/20 Range/Units 20:48 06:33 WBC 5.75 5.49 (4.8-10.8) K/uL Hgb 10.8 L 10.0 L (12.0-16.0) g/dL Hct 31.1 L 29.3 L (37-47) % Plt Count 87 L D 102 L (130-400) K/uL BMP 08/22/20 06:33 Sodium 140 Potassium 3.7 Chloride 108 H Carbon Dioxide 25 BUN 21 H Creatinine 0.68 Glucose 100 H Calcium 8.3 L
--- NOTE | 2020-08-22 12:24 | Discharge Summary ---
Date of Service August 22, 2020 Admission HPI Per Admitting Provider Pt is 85 y/o F with PMH DM II, HTN, dyslipidemia, CKD III presented to ER with complaint of weakness and myalgias x3 days. Patient states 3 days ago was going to bed and fell into the bed and became wedged between the bed and wall and she was unable to get up. Patient states was on floor for approximately 10 hours before she called her grandson to help get her up. Patient states prior to fall she denies any known dizziness, chest pain, shortness of breath. She does not believe she had any loss of consciousness as she remembers lying on floor and remembers watching the clock throughout the night. Past several days has had generalized weakness and generalized myalgias and arthralgias. Reports decreased appetite and decreased oral intake. Has had decreased urine output. States her face felt flushed but she had no known fever. Denies any other rashes. Patient states she usually ambulates with use of cane. Denies any known tick bites. She does have a dog. Denies N/V/D/C, CRAMER, dizziness, vision changes, neck pain, CP, SOB, orthopnea, palpitations, cough, sore throat, choking, otalgia, rhinorrhea, abdominal pain, paresthesias, increased extremity edema, hematuria, dysuria, urinary frequency. Admission Exam Per Admitting Provider Physical Exam Physical Exam: General: no distress, WDWN Head: normocephalic, atraumatic Eyes: PERRL, EOM's intact, conjunctiva non-injected, anicteric ENT: normal inspection external ears, nose, mucous membranes moist Neck: supple, trachea midline Lungs: clear, no respiratory distress, no wheezing/rhonchi/rales CV: tachycardia at 100, regular rhythm, no murmur, trace pretibial edema Abd: normal BS, soft, non-tender Ext: no cyanosis, no calf tenderness Neuro: A&O x 3, no focal deficits noted, normal affect Skin: warm, dry, face flushed Principal Diagnosis Sepsis Anaplasmosis Acute kidney injury Discharge Data Allergies Allergy/AdvReac Type Severity Reaction Status Date / Time No Known Allergies Allergy Unverified 08/17/20 14:41 Consultations 08/17/20 15:02 ED Decision to Admit Stat Procedures Performed CT head: No acute intracranial abnormality or calvarial fracture. CT C-spine: No acute fracture CT Neck: 1. There is no evidence of fracture or subluxation involving the cervical spine. 2. Osteopenia and spondylotic change as above. CT ABD: 1. 2 mm right renal calculus. No ureteral calculi or hydronephrosis. 2. Cholelithiasis. 3. No bowel obstruction. 4. Trace bilateral pleural effusions and a trace pericardial effusion. CXR: 1. Pulmonary vascular congestion with suspected mild pulmonary edema. 2. Trace bilateral pleural fusions with bibasilar opacities. Ordered Studies 08/17/20 13:46 CT head/brain wo con Stat 08/17/20 13:52 CT cervical spine wo con Stat 08/17/20 22:31 CT abd pelvis wo con Urgent Hospital Course (1) Sepsis: (2) Anaplasmosis: Patient is an 85 yr female with H/O DM II, HTN, dyslipidemia, CKD III presented to ER with complaint of weakness and myalgias x3 days. Sepsis Anaplasmosis Transaminitis, Thrombocytopenia likely due to above Rule out Bacteremia Peripheral Smear: showed Intracytoplasmic neutrophilic inclusions S/P 1 unit Platelet transfusion Blood Culture: 03/19 : Corynebacterium species--likely contamination Coagulase-negative staph not lugdunensis Repeat blood cultures.: No growth to date Continue Doxycycline Received IV fluids LFTs improved Platelet count improved to 102K Mild pulmonary edema Likely secondary to IV fluids IV fluids discontinued Saturating well on room air Monitor volume status Resolved Suspected UTI Urine Cx: Gram Negative bacilli (6000) Received Cefepime Day #3 Hypokalemia Replace electrolytes as needed Monitor (3) Fall: (4) Weakness: Multiple falls CT head: No acute intracranial abnormality or calvarial fracture. CT C-spine: No acute fracture Likely due to above Fall precautions PT OT (5) Acute kidney injury superimposed on CKD: YOGI on CKD III Cr:2.36>1.22> 0.93>0.74>0.68 Hold Losartan, Sulindac Avoid Nephrotoxic agents as able Monitor renal function Avid NSAIDs (6) Elevated LFTs: Management as above (7) Thrombocytopenia: Likely secondary to anaplasmosis Transfuse PRN (8) Diabetes mellitus, type II: A1c: 5.6 on 06/10/2020 Hold Metformin Continue insulin therapy while hospitalized Monitor BGs (9) HTN (hypertension): Blood pressure relatively low Losartan held due to YOGI Monitor BP (10) Dyslipidemia: Continue Rosuvastatin DVT Px SCDs Re:Thrombocytopenia Code Status DNR/DNI Disposition Home Total Time Total Time Spent Total Time Spent (In Minutes): 42 minutes Total Time Includes: Examination of the Patient, Discharge Planning, Medication Reconciliation, Communication With Other Providers and Other Discharge Plan Discharge Items Patient Disposition: Home - Self-Care Reason For Visit: ANAPLASMOSIS Discharge Diagnosis: Sepsis Anaplasmosis Acute kidney injury Condition on Discharge: Serious Activity: Per Instructions section Exercise/Sports: Gradually increase as tolerated Non-emergency contact: Primary Care Provider Call non-emergency contact if: you have any medication questions, your symptoms worsen, your pain is not controlled, your pain is concerning for you and you have a fever Follow-up/Referrals: Deena Landry DO [Primary Care Provider] - (Date & Time 08/25/2020 2:20 PM Provider Deena Landry DO Department [facility] ) Diet: Carb Consistent or DM2 and Heart Healthy Addtl Attending Provider Instructions: Follow up with your PCP on 08/25/2020 2:20 PM Complete the antibiotic course (Doxycycline) for Anaplasmosis as prescribed Your Blood Pressure is relatively low during your hospital stay. Will decrease your losartan to 25mg daily. Further adjustment of your medications as per your Primary Care Physician. Seek immediate medical attention if your symptoms reoccur or worsen Please take all medications as instructed on discharge list below. Please call if you have any questions or problems. You can reach a [facility] hospitalist on duty at [facility] 24 hours a day by calling [phone] Pending Studies at Discharge: Yes Studies:: Repeat Blood Cultures Stand-Alone Forms: My [facility], Smoking Cessation Medications and DC Order Prescriptions: New doxycycline hyclate 100 mg Capsule 100 mg PO BID Qty: 20 RF: 0 Continued metformin 500 mg tablet 500 mg PO DAILY RF: 0 sulindac 200 mg tablet 200 mg PO DAILY PRN (Reason: Pain) RF: 0 rosuvastatin 10 mg tablet 10 mg PO DAILY RF: 0 aspirin 81 mg Tablet,Delayed Release (Dr/Ec) 81 mg PO USEASDIRECTD RF: 0 Changed losartan 50 mg tablet 25 mg PO DAILY Qty: 0 RF: 0 Discharge Orders: Discharge Order (Routine); Ordered 08/22/20 Ordered By: Maldonado Patricio/Other Patient Handouts: Understanding Type 2 Diabetes Admission Data Admit Date/Time: 08/17/20 15:17 Attending Provider: Maldonado Moy Admit Provider: Romario Alvarado Primary Care Provider: Deena Landry Other Providers: Romario Alvarado Other Interventions: Discharge Summary Assessment (RN) Last Done: 08/22/20 12:49
== END 2020-08-22 13:40 | disposition home or self-care (01) | DRG 872 ==
LOC: ED 13:11 → 2S 15:17 → SUATTDRO 15:17 → 2S 17:27 → 3N 08-20 02:57

== ENCOUNTER 2021-10-07 12:25 | Inpatient (IN) ==
[2021-10-07] MEDS ORDERED: ONDANSETRON INJ 2 MG/ML 2 ML VIAL IV STA (12:40)
[2021-10-07] MEDS ORDERED: SODIUM CHLORIDE 0.9% 1000ML 500 ML IV ONE (12:40)
[2021-10-07 13:10] LABS: iSTAT Creatinine 0.8 mg/dl (0.6-1.3); iSTAT Hemoglobin 12.2 g/dl (12.0-16.0); iSTAT Ionized Calcium 1.03 mmol/l (1.12-1.32); iSTAT Potassium 2.8 mmol/L (3.3-5.0)
[2021-10-07 13:15] LABS: Prothrombin Time 10.9 Seconds (9.0-12.0)
[2021-10-07 13:19] LABS: Albumin Globulin Ratio 1.6 (0.9-2); Albumin Level 4.2 gm/dl (3.4-5.0); BUN Creatinine Ratio 17.3 (10-20); Bilirubin,Total 1.4 mg/dl (0.2-1.0); Calcium 9.2 mg/dl (8.5-10.1); Creatinine Clr Calc Pharmacy 36.5 ml/min; Est GFR (African American) 60.1 ml/min; Est GFR (Non-African American) 51.9 ml/min; Globulin 2.6 gm/dl (2.5-4.0); Potassium 3.4 mmol/L (3.5-5.1); Total Protein 6.8 gm/dl (6.0-8.3)
[2021-10-07] MEDS ORDERED: OPTIRAY 320 100ml IV ONE (13:24)
[2021-10-07] MEDS ORDERED: ACETAMINOPHEN 1,000 MG/100 ML VIAL IV STA (13:25)
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
--- NOTE | 2021-10-07 14:13 | CT Scan Report ---
CT SCAN OF THE ABDOMEN AND PELVIS WITH IV CONTRAST CLINICAL HISTORY: Lower abdominal pain. Nausea. COMPARISON STUDY: Abdominal CT dated 08/17/2020. TECHNIQUE: Following the IV administration of 94 cc of Optiray 320, CT scan of the abdomen and pelvi s is performed from the lung bases to the proximal femora. Images are reviewed in the axial, sagittal , and coronal planes. IV contrast was administered without complication. A dose lowering technique wa s utilized adhering to the principles of ALARA. CT DOSE: 303.26 mGy.cm FINDINGS: Lung bases: The heart is normal in size and without pericardial effusion. The lung bases are clear no ting bibasilar scarring/atelectasis. There is a small hiatal hernia. Liver: The contrast-enhanced liver is normal in size, contour, and attenuation. There is no intrahepa tic biliary ductal dilatation. The hepatic veins and portal veins are patent. Gallbladder: There are calcified gallstones with no CT evidence of acute cholecystitis. Spleen: Normal in size and attenuation. Pancreas: Unremarkable. Adrenal glands: Unremarkable. Kidneys: The contrast enhanced kidneys demonstrate cortical atrophy. There is a 4 mm obstructing calc ulus at the right vesicoureteral junction seen on image #331. This causes mild to moderate right hydr oureteronephrosis. There is associated right-sided perinephric and periureteric stranding/fluid. No a dditional renal calculi are clearly identified on this contrast-enhanced examination. There is no lef t-sided hydronephrosis. There is slightly diminished enhancement of the right kidney as compared to t he left. A circumaortic left renal vein is incidentally noted. Abdominal vasculature: The abdominal aorta is normal in course and caliber noting advanced atheroscle rotic calcification. Bowel: There is no bowel obstruction. Mild wall thickening and mucosal hyperemia is seen throughout t he colon.. The appendix is not identified and reported surgically absent. Peritoneum: There is no intraperitoneal free air or abdominal ascites. There is a fat-containing umbi lical hernia. Lymphadenopathy: None. Pelvic viscera: The bladder, uterus, and adnexa are normal as visualized. Skeletal structures: The skeletal structures are osteopenic there is mild to moderate lumbosacral spo ndylosis as well as a mild chronic compression deformity of T10. No lytic or blastic lesions are seen . There are healed left-sided rib fractures. IMPRESSION: 1. There is a 4 mm obstructing calculus at the right vesicoureteral junction. This causes mild to mod erate right-sided hydroureteronephrosis. 2. Heterogeneously diminished enhancement of the right kidney is likely related to obstruction/hydron ephrosis. Correlate with clinical findings and urinalysis for evidence of superimposed urinary tract infection. 3. There is mild diffuse wall thickening and mucosal hyperemia of the colon. Correlate clinically for evidence of a mild nonspecific colitis. 4. Cholelithiasis. 5. Additional findings as above. ACT 112: Negative or not required by law. Electronically signed by: Dimitri Navarro M.D. 10/07/2021 2:11 PM
[2021-10-07] MEDS ORDERED: PIPERACILLIN/TAZOBACTAM 4.5 GM/120 ML BAG IV ONE (14:15)
[2021-10-07] MEDS ORDERED: SODIUM CHLORIDE 0.9% 1000ML 1,000 ML IV ONE (14:16)
[2021-10-07 14:19] LABS: Basophils # (auto) 0.01 K/uL (0-0.2); Basophils % (auto) 0.3 %; Echinocytes 1+; Eosinophils # (auto) 0.01 K/uL (0-0.50); Eosinophils % (auto) 0.3 %; Hematocrit (blood only) 41.6 % (34.1-44.9); Hemoglobin 13.9 g/dl (12.0-16.0); Immature Granulocytes # (auto) 0.33 K/uL (0.00-0.02); Immature Granulocytes % (auto) 9.8 %; Lymphocytes # (auto) 0.16 K/uL (1.2-3.4); Lymphocytes % (auto) 4.7 %; Mean Corpuscular Hemoglobin 32.5 pg (25.0-34.0); Mean Corpuscular Hgb Conc 33.4 g/dL (32.0-36.0); Mean Corpuscular Volume 97.2 fL (80.0-100.0); Mean Platelet Volume 10.5 fL (9.4-12.3); Monocytes # (auto) 0.02 K/uL (0.24-0.82); Monocytes % (auto) 0.6 %; Neutrophils # (auto) 2.85 K/uL (1.4-6.5); Neutrophils % (auto) 84.3 %; Platelet Count 90 K/uL (130-400); RDW Coefficient of Variation 12.4 % (11.5-14.5); RDW Standard Deviation 44.3 fL (36.4-46.3); Red Blood Count 4.28 M/uL (3.93-5.22); Tear Drop Cells 1+; Toxic Vacuolation 1+; White Blood Count 3.38 K/ul (4.8-10.8)
[2021-10-07] MEDS ORDERED: LACTATED RINGER'S 1,000 ML IV ONE (14:25)
[2021-10-07 14:59] LABS: Appearance Urine Clear (Clear); Bacteria Urine Automated 4+ (Negative); Bilirubin Urine Negative (Negative); Blood Urine Trace (Negative); Cast Urine Automated 0 /lpf (0-5); Color Urine Yellow; Glucose Urine UA Negative (Negative); Ketones Urine Negative (Negative); Leukocyte Esterase Urine Negative (Negative); Nitrite Urine Positive (Negative); Protein Urine Negative (Negative); RBC Urine Automated 0-4 /hpf (0-4); Specific Gravity Urine 1.031 (1.000-1.030); Urobilinogen Urine Negative (Negative)
--- NOTE | 2021-10-07 15:30 | XRay Report ---
SINGLE VIEW CHEST CLINICAL HISTORY: Generalized abdominal pain. Hypoxia. FINDINGS: An AP, portable, upright chest radiograph is compared to study dated 08/18/2020. The cardiome diastinal silhouette is unremarkable noting atherosclerotic calcification of the thoracic aorta. Ther e is bibasilar scarring/atelectasis. The lungs and pleural spaces are otherwise clear. No pneumothora x is seen. The skeletal structures are osteopenic. The bony thorax is grossly intact. IMPRESSION: No active disease in the chest. ACT 112: Negative or not required by law. Electronically signed by: Dimitri Navarro M.D. 10/07/2021 3:29 PM
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
[2021-10-07] MEDS: POTASSIUM CHLORIDE / WTR 10 MEQ/100 ML PLCT IV SCH ×2 (15:41→16:45)
[2021-10-07] MEDS ORDERED: HYDROmorphone INJ 0.5 MG/0.5 ML SYR IV PRN (16:22)
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
[2021-10-07] MEDS ORDERED: SODIUM CHLORIDE 0.9% 1000ML 1,000 ML IV SCH (16:56)
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
[2021-10-07] MEDS ORDERED: fentaNYL citrate 100 MCG/2 ML VIAL ONE (17:26)
[2021-10-07] MEDS ORDERED: NOREPINEPHRINE/D5W 4 MG/250 ML IV ONE (17:26)
[2021-10-07] MEDS ORDERED: KETAMINE 50 MG/5 ML SYRINGE ONE (17:27)
[2021-10-07] MEDS ORDERED: MIDAZOLAM HCL 1 MG/ML 2ML VIAL ONE (17:27)
[2021-10-07] MEDS ORDERED: STAT IV Infusion **Titration per Protocol STA (17:27)
[2021-10-07] MEDS: NOREPINEPHRINE/D5W 4 MG/250 ML PLCT IV SCH ×2 (17:34→22:28)
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
--- NOTE | 2021-10-07 18:02 | Communication Note ---
Date of Service: October 07, 2021 Patient was reevaluated at 1730. Was contacted by nurse Mcdonald secondary to patient persistently being hypotensive despite additional 1 L fluid bolus Patient's blood pressure 61/38 and 75/40. She remains tachycardic. She has had 3.5L of IVF thus far. Lactic acidosis still present. She continues to appear to be critically ill. Patient is a DNR/DNI. Discussed with patient and daughter at bedside. She is okay with IV vasopressors. We will upgrade patient to conditional code to allow for vasopressor support. She still wishes against mechanical ventilation or CPR. Discussed case with ICU physician Dr. Chu. Patient now meets criteria for septic shock and peripheral IV vasopressors have been initiated. I did discuss with ED provider Dr. Li for assistance with central line placement. He agreed and this is much appreciated. This was at the request of bacon stringer. OR Cancelled. Pt needs to become more stable. Pt will now be upgrade to ICU status and order placed for ICu admission. > 75 min of critical care time has been spent reviewing patient records, coordinating with specialists, discussion with family members, review of lab wor k/imaging Family was updated at bedside and they agree with above. Phi Champagne PA-C Attending addendum; The patient was seen and examined by me during the whole process She was started with Levophed and was transferred to ICU Agree with assessment and plan as outlined above DR Arelis Alex
[2021-10-07] MEDS ORDERED: PHENYLEPHRINE 100MCG/ML 5ML SYR IV PRN (18:16)
[2021-10-07] MEDS ORDERED: ONDANSETRON INJ 2 MG/ML 2 ML VIAL IV PRN ×2 (18:16→19:57)
[2021-10-07] MEDS ORDERED: ePHEDrine sulfate 50 MG/ML AMP IV PRN (18:16)
[2021-10-07] MEDS ORDERED: ATROPINE SULFATE 0.1 MG/ML 10ML SYR IV PRN (18:16)
--- NOTE | 2021-10-07 18:44 | Post Operative Brief Note ---
PG Immediate Post Op with CF Date of Surgery October 07, 2021 Pre & Post Diagnosis Right ureteral calculus with sepsis Operation Date: 10/07/21 18:00 <No data on this case meets the specified criteria> Right ureteral calculus with sepsis I identified the patient and participated in the time-out.: Yes Procedure Operation Date: 10/07/21 18:00 Actual Procedures p Cystoscopy, Right Retrograde Pyleogram,Stent placement Right(Right) - Marcus Sage MD Surgeon Marcus Sage MD Java Development Manager None Estimated Blood Loss 0 Findings See Below Right retrograde pyelogram showed moderate hydronephrosis. Stent in appropriate position. Specimens Specimen Description: none per surgeon Drains Other (6 Senegalese by 24 cm right ureteral stent and 16 Senegalese Adhikari with 10 cc in balloon) Complications none
[2021-10-07] MEDS ORDERED: DIATRIZOATE MEGLUMINE 30% 100ML VIAL INSTIL ONE (18:57)
--- NOTE | 2021-10-07 19:01 | Anesthesiology Progress Note ---
Date of Service October 07, 2021 Anesthesia Post Procedure Vital Signs Vital Signs: Temp Pulse Resp BP Pulse Ox O2 Del Method O2 Flow Rate 10/07/21 17:58 65/47 L 10/07/21 17:52 75/40 L 10/07/21 17:48 72/47 L 10/07/21 17:05 119 H 74/49 L 88 L Nasal Cannula 3 10/07/21 16:58 61/38 L 10/07/21 16:04 121 H 20 112/69 90 Nasal Cannula 2 10/07/21 14:47 120 H 20 111/58 L 93 Nasal Cannula 2 10/07/21 14:16 107/65 90 Nasal Cannula 2 10/07/21 12:45 94 Room Air 10/07/21 12:30 119 H 26 H 135/62 93 Room Air 10/07/21 12:27 37.7 C H 26 H Pain Intensity Abdomen: Pain Intensity: 10 Transfer of Care Handoff Completed per policy Notes Mental Status: alert / awake / arousable Patient Amnestic to Procedure: Yes Nausea / Vomiting: adequately controlled Pain: adequately controlled Airway Patency, RR, SpO2: stable & adequate BP & HR: stable & adequate Hydration State: stable & adequate Anesthetic Complications: no major complications apparent
--- NOTE | 2021-10-07 19:02 | Operative Report ---
PG Post Operative Report Pre & Post Diagnosis Operation Date: 10/07/21 18:00 Pre-Op Diagnosis: Kidney stone on right side Sepsis Post-Op Diagnosis: Kidney stone on right side Sepsis I identified the patient and participated in the time-out.: Yes Procedure Operation Date: 10/07/21 18:00 Actual Procedures p Cystoscopy, Right Retrograde Pyleogram with radiographic interpretation, Stent placement Right(Right) - Marcus Sage MD Surgeon Marcus Sage MD Health Consultant None Estimated Blood Loss 0 Findings See Below 1. Right retrograde pyelogram showed moderate hydronephrosis 2. Stent in appropriate position Specimens None Drains 1. 6 Kyrgyz by 24 cm right ureteral stent 2. 16 Kyrgyz Adhikari catheter with 10 cc in balloon Complications none Indications 86-year-old female presented the emergency department with right abdominal pain. She was tachycardic, mildly hypotensive with a lactic acidosis and a positive UA. CT scan showed a 4 mm right UVJ calculus. She was taken emergently to the OR for right stent placement. She was initially stable however her blood pressures dropped after receiving pain medication and she had a central line placed in the ED prior to going to the operating room. She received Zosyn preoperatively. Description of Procedure After informed consent was obtained, the patient was transported operative suite. MAC anesthesia was induced. The patient was placed in dorsolithotomy position prepped and draped in a sterile fashion. They received preoperative Zosyn for antibiotic prophylaxis. An appropriate surgical timeout was performed. A 22 Kyrgyz rigid scope was inserted per urethra into the bladder. Mata cystoscopy revealed no stones or lesions. I turned my attention the right ureteral orifice and intubated this with a 5 Kyrgyz open-ended catheter. A right retrograde pyelogram was shot which showed mild hydronephrosis and proximal kinking of the right ureter.. A sensor wire was advanced into the proximal ureter but met resistance at the kinked portion. I advanced the 5 Kyrgyz open-ended catheter up to the level of the kinked portion and then was able to advance a sensor wire into the kidney. 5 Kyrgyz open-ended catheter was removed. A 6 Kyrgyz by 24 cm right ureteral stent was deployed with a good proximal coil in the kidney and a good distal coil noted in the bladder, confirmed fluoroscopically and under direct visualization, respectively. The bladder was left full and a 16 Kyrgyz Adhikari catheter was placed with return of clear yellow urine. The balloon was inflated with 10 cc of sterile water. This concluded the end of the case. All counts were correct at the end of the case. I was present, scrubbed, and actively participated for the entirety of the procedure. The patient was transported in stable condition to the ICU. Recommended broad- spectrum antibiotics to include gram-positive coverage. I attest to the content of the Intraoperative Record and any orders documented therein. Any exceptions are noted below.
--- NOTE | 2021-10-07 19:05 | Emergency Department Note ---
ED Visit Note I was not the patient's primary physician in the emergency department, but I was asked by the inpatient care team to help in establishing access as the patient had become acutely hypotensive. The patient did not respond to an IV fluid bolus. I did speak with the patient as well as the patient's relative at bedside and they both consented to having the central line placed. This was placed in standard fashion without complication under ultrasound guidance. The patient suffered no complications. Patient reportedly was pending operative barbra atment to have a obstructing stone removed that was like the cause of the patient's sepsis. Procedures: Central Venous Catheter performed by Dr. Li Indication: Hypotension, sepsis Catheter type: 7 Yi triple-lumen Location: Right groin Verbal consent was obtained after the risks and benefits were explained, including but not limited to vessel injury, bleeding, scarring, infection, pain, and bone/joint/nerve damage. At this time, the risks of the procedure are less than the risks of NOT performing the procedure. A time out was taken and the correct patient and site identified. The patient was placed in the appropriate position with her hip abducted and the skin was prepped in the standard fashion with chlorhexidine and full sterile drapes applied. The proper landmarks were identified with ultrasound, anesthetized with 1% lidocaine without epinephrine, and the needle was inserted through the skin in the standard fashion. The needle was carefully advanced into blood vessel lumen under ultrasound guidance. The guidewire was placed uneventfully. The vessel was dilated and the catheter was placed. It was sutured into position. There was good blood return from all ports. The patient tolerated the procedure well and there were no complications. . : Nausea & vomiting Qualifiers: Vomiting type: unspecified Qualified Code(s): R11.2 - Nausea with vomiting, unspecified
--- NOTE | 2021-10-07 19:12 | Fluoroscopy Report ---
INTRAOPERATIVE RADIOGRAPHS CLINICAL HISTORY: Right ureteral stent placement. Fluoroscopy time: 8 seconds. FINDINGS: 2 spot fluoroscopic views of the right abdomen are correlated with abdominal CT performed t he same day 10/07/2021. The initial image shows right-sided hydroureteronephrosis. The second image sh ows the proximal end of a right ureteral stent projecting over the right renal pelvis. IMPRESSION: Intraoperative images from a right ureteral stent placement procedure as above. Electronically signed by: Dimitri Navarro M.D. 10/07/2021 7:11 PM
[2021-10-07] MEDS ORDERED: GLUCOSE 40% GEL 15 GM TUBE PO PRN (19:57)
[2021-10-07] MEDS ORDERED: DEXTROSE 50% 50 ML SYRINGE IV PRN (19:57)
[2021-10-07] MEDS ORDERED: GLUCAGON FOR INJ 1 MG VIAL SQ PRN (19:57)
[2021-10-07] MEDS ORDERED: ICU PROTOCOL FOR HYPERGLYCEMIA PRN (19:57)
[2021-10-07] MEDS ORDERED: ALUMINUM/MAGNESIUM SUSP 30 ML UDC PO PRN (19:57)
[2021-10-07] MEDS ORDERED: CARBOHYDRATES FOR HYPOGLYCEMIA PO PRN (19:57)
[2021-10-07] MEDS ORDERED: POLYETHYLENE (MIRALAX) 17 GM PACK PO PRN (19:57)
[2021-10-07] MEDS ORDERED: GLUCOSE 10 TAB/TUBE PO PRN (19:57)
[2021-10-07] MEDS ORDERED: MAGNESIUM HYDROXIDE SUSP 30 ML UDC PO PRN (19:57)
[2021-10-07] MEDS ORDERED: VANCOMYCIN CONSULT ACTIVE PRN (20:11)
[2021-10-07] MEDS ORDERED: VANCOMYCIN HCL 1,500 MG in SODIUM CHLORIDE 0.9% 500 ML IV ONE (20:11)
[2021-10-07] MEDS: INSULIN ASPART PER UNIT SC SCH ×2 (20:50→20:52)
[2021-10-07] MEDS: PIPERACILLIN/TAZOBACTAM 4.5 GM in DEXTROSE 5% 100 ML IV SCH (20:51)
[2021-10-07] MEDS: LANTUS PER UNIT CHARGE SQ SCH (20:52)
[2021-10-07 21:38] LABS: A calco-baum cmplx NotReported Not Detected (NotDetected); Bact fragilis Not Reported Not Detected (NotDetected); C auris Not Reported Not Detected (NotDetected); CTX-M Resistant Gene Not Detected (NotDetected); Calbicans Not Reported Not Detected (NotDetected); Candida glabrata Not Reported Not Detected (NotDetected); Candida krusei Not Reported Not Detected (NotDetected); Cneoformans/gatti Not Reported Not Detected (NotDetected); Cparapsilosis Not Reported Not Detected (NotDetected); Ctropicalis Not Reported Not Detected (NotDetected); E cloacae compx Not Reported Not Detected (NotDetected); Efaecalis Not Reported Not Detected (NotDetected); Efaecium Not Reported Not Detected (NotDetected); H influenzae Not Reported Not Detected (NotDetected); IMP Resistant Gene Not Detected (NotDetected); K aerogenes Not Reported Not Detected (NotDetected); KPC Resistant Gene Not Detected (NotDetected); Koxytoca Not Reported Not Detected (NotDetected); Kpneumoniae grp Not Reported Not Detected (NotDetected); Lmonocyt Not Reported Not Detected (NotDetected); N meningitidis Not Reported Not Detected (NotDetected); NDM Resistant Gene Not Detected (NotDetected); OXA 48 Like Resistant Gene Not Detected (NotDetected); P aeruginosa Not Reported Not Detected (NotDetected); Proteus spp Not Reported Not Detected (NotDetected); Salmonella spp Not Reported Not Detected (NotDetected); Smarcescens Not Reported Not Detected (NotDetected); Staph lugdunensis Not Reported Not Detected (NotDetected); Staph spp. Not Reported Not Detected (NotDetected); Staphaureus Not Reported Not Detected (NotDetected); Staphepi Not Reported Not Detected (NotDetected); Stenmaltophilia Not Reported Not Detected (NotDetected); Strep agal(GrpB) Not Reported Not Detected (NotDetected); Strep pneum Not Reported Not Detected (NotDetected); Strep pyog (GrpA) Not Reported Not Detected (NotDetected); Strep spp Not Reported Not Detected (NotDetected); VIM Resistant Gene Not Detected (NotDetected); mcr-1 Colistin Resistant Gene Not Detected (NotDetected)
[2021-10-07 21:44] LABS: Enterobacterales DETECTED (NotDetected); Enterobacterales Not Reported DETECTED (NotDetected); Escherichia coli Not Reported DETECTED (NotDetected)
[2021-10-08] MEDS ORDERED: NORMOSOL-R 1,000 ML IV SCH
--- NOTE | 2021-10-08 00:24 | Pharmacy Report ---
Pharmacy PK ABX Note - Date of Service October 08, 2021 - Assessment and Plan Assessment 86 year old F receiving Vancomycin/Zosyn for treatment of sepsis 2/2 UTI. Pertinent microbiologic data includes: blood & urine cx pending. Plan Vancomycin * Loading dose: 1500mg (~20 mg/kg) IV x 1. * Maintenance dose: 1250mg (~16 mg/kg) IV every 24.hours * Regimen is predicted to achieve target AUC/ANDRIY of 400-600 mg/L.hr * Will check a trough level in a few days if Vancomycin is continued. Pharmacy will continue to follow and will adjust dose/frequency as necessary. Thank you. Pharmacy has transitioned to AUC monitoring for vancomycin. AUC/ANDRIY is the preferred PK/PD target and is associated with decreased risk of nephrotoxicity compared to traditional trough targets.
[2021-10-08] MEDS: NOREPINEPHRINE/D5W 4 MG/250 ML PLCT IV SCH ×4 (02:00→11:55)
[2021-10-08] MEDS: PIPERACILLIN/TAZOBACTAM 4.5 GM in DEXTROSE 5% 100 ML IV SCH (04:15)
[2021-10-08 05:45] LABS: Albumin Globulin Ratio 1.5 (0.9-2); Albumin Level 2.8 gm/dl (3.4-5.0); BUN Creatinine Ratio 12.8 (10-20); Bilirubin,Total 2.1 mg/dl (0.2-1.0); Calcium 6.7 mg/dl (8.5-10.1); Creatinine Clr Calc Pharmacy 29.3 ml/min; Est GFR (African American) 44.8 ml/min; Est GFR (Non-African American) 38.6 ml/min; Globulin 1.9 gm/dl (2.5-4.0); Phosphorus 2.7 mg/dl (2.5-4.9); Potassium 3.2 mmol/L (3.5-5.1); Total Protein 4.7 gm/dl (6.0-8.3)
[2021-10-08 05:47] LABS: Hematocrit (blood only) 34.7 % (34.1-44.9); Hemoglobin 11.3 g/dl (12.0-16.0); Mean Corpuscular Hemoglobin 32.2 pg (25.0-34.0); Mean Corpuscular Hgb Conc 32.6 g/dL (32.0-36.0); Mean Corpuscular Volume 98.9 fL (80.0-100.0); Mean Platelet Volume 11.6 fL (9.4-12.3); Nucleated RBC # (auto) 0.04 K/uL (0-0); Nucleated RBC % (auto) 0.2 %; Platelet Count 43 K/uL (130-400); RDW Standard Deviation 46.5 fL (36.4-46.3); Red Blood Count 3.51 M/uL (3.93-5.22); White Blood Count 21.36 K/ul (4.8-10.8)
[2021-10-08 05:56] LABS: Basophils # (auto) 0.03 K/uL (0-0.2); Basophils % (auto) 0.1 %; Eosinophils # (auto) 0.17 K/uL (0-0.50); Eosinophils % (auto) 0.8 %; Immature Granulocytes # (auto) 1.77 K/uL (0.00-0.02); Immature Granulocytes % (auto) 8.3 %; Lymphocytes # (auto) 0.46 K/uL (1.2-3.4); Lymphocytes % (auto) 2.2 %; Monocytes # (auto) 1.31 K/uL (0.24-0.82); Monocytes % (auto) 6.1 %; Neutrophils # (auto) 17.62 K/uL (1.4-6.5); Neutrophils % (auto) 82.5 %; Platelet Estimate Decreased (Normal)
[2021-10-08] MEDS ORDERED: STAT IV STA ×2 (06:08→10:36)
[2021-10-08] MEDS ORDERED: CALCIUM GLUCONATE 10% 2,000 MG in DEXTROSE 5% 50 ML IV ONE (06:15)
[2021-10-08] MEDS: POTASSIUM CHLORIDE / WTR 10 MEQ/100 ML PLCT IV SCH ×4 (06:31→10:29)
[2021-10-08] MEDS ORDERED: STAT IV Infusion **Titration per Protocol STA ×2 (07:44→09:52)
--- NOTE | 2021-10-08 07:51 | Urology Progress Note ---
Date of Service October 08, 2021 Assessment & Plan (1) Kidney stone on right side: (2) Sepsis: Plan 86-year-old female with a right 4 mm UVJ calculus and sepsis who is status post cystoscopy with right ureteral stent and Adhikari catheter placement on 10/07/2021 Not unexpected for patient to have increased leukocytosis and creatinine following stent placement. Patient reports feeling subjectively improved. Continue to trend labs. Continue broad-spectrum antibiotics. Follow-up urine cultures and treat accordingly Maintain Adhikari catheter Can have a diet from a urologic perspective Urology to follow Admission and Anticipated Discharge Date Admission Date: October 07, 2021 Subjective Taken the OR yesterday emergently for cystoscopy with right ureteral stent placement. Transferred to ICU afterwards. She remains tachycardic and hypotensive. Afebrile. Leukocytosis has increased from 3-21. Creatinine has slightly increased from 0.9-1.2. Urine and blood cultures are growing gram- negative bacilli and she is on Zosyn. She remains on Levophed. Urine output via Adhikari catheter 0.5 mL/kg/hr. Patient denies any pain from stent and reports renal colic has improved. Review of Systems Review of Systems: 14 point review of systems negative outside of what is listed above in HPI Physical Exam Physical Exam: General: Alert and oriented, no acute distress HEENT: Normocephalic, mucous membranes moist Pulmonary: Nonlabored respirations Abdomen: Nondistended : Adhikari catheter draining clear urine. Extremities: Moves all 4 spontaneously Neuro: No gross deficits Skin: Warm, dry, no rashes noted Results & Data ([facility]) Vital Signs (Past 12 Hours) Vital Signs Temp Pulse Resp BP Pulse Ox O2 Del Method O2 Flow Rate 10/08/21 05:30 121 H 22 90 4 10/08/21 05:30 91/51 L 10/08/21 05:15 125 H 22 90 4 10/08/21 05:00 117 H 19 92 10/08/21 05:00 83/47 L 10/08/21 04:45 120 H 23 93 10/08/21 04:30 121 H 27 H 92 10/08/21 04:30 94/54 L 10/08/21 04:00 117 H 20 91 10/08/21 04:00 83/46 L 10/08/21 03:30 119 H 21 91 10/08/21 03:30 95/42 L 10/08/21 03:00 117 H 20 91 10/08/21 03:00 82/47 L 10/08/21 02:30 115 H 19 92 10/08/21 02:30 85/45 L 10/08/21 02:00 115 H 22 92 10/08/21 02:00 84/48 L 10/08/21 01:31 78/44 L 10/08/21 01:31 115 H 19 94 10/08/21 01:30 114 H 18 93 10/08/21 01:30 77/41 L 10/08/21 01:02 116 H 19 92 10/08/21 03:26 37.1 C 10/07/21 23:30 114 H 10/08/21 01:01 84/42 L 10/08/21 01:00 117 H 20 92 5 10/08/21 00:30 117 H 21 92 5 10/08/21 00:30 93/44 L 10/08/21 00:01 82/39 L 10/08/21 00:01 115 H 18 93 10/08/21 00:00 115 H 21 94 10/08/21 00:00 79/43 L 10/07/21 23:30 114 H 20 92 10/07/21 23:30 85/42 L 10/07/21 23:24 120 H 25 H 94 10/07/21 23:24 92/46 L 10/07/21 23:03 120 H 21 94 10/07/21 23:03 87/40 L 10/07/21 23:00 119 H 21 94 10/07/21 23:00 72/38 L 10/07/21 23:56 Nasal Cannula 5 10/07/21 22:45 119 H 22 89 L 10/07/21 22:32 88/42 L 10/07/21 22:32 119 H 23 90 10/07/21 22:30 118 H 22 91 10/07/21 22:30 74/46 L 10/07/21 22:20 81/56 L 10/07/21 22:20 120 H 23 92 10/07/21 22:15 116 H 24 91 10/07/21 22:05 82/45 L 10/07/21 22:05 120 H 24 84 L 10/07/21 22:03 78/45 L 10/07/21 22:03 115 H 16 92 10/07/21 22:01 76/41 L 10/07/21 22:01 115 H 16 93 10/07/21 22:00 116 H 15 93 10/07/21 22:00 74/45 L 10/07/21 21:45 116 H 17 94 10/07/21 21:30 120 H 30 H 89 L 10/07/21 21:30 91/52 L 10/07/21 21:15 116 H 18 93 10/07/21 21:02 66/41 L 10/07/21 21:02 121 H 20 91 10/07/21 21:00 121 H 22 90 10/07/21 21:00 80/49 L 10/07/21 20:45 121 H 22 94 10/07/21 20:37 121 H 20 91 10/07/21 20:37 91/49 L 10/07/21 20:30 127 H 23 93 10/07/21 20:30 80/55 L 10/07/21 20:26 88/51 L 10/07/21 20:26 126 H 20 93 10/07/21 20:26 89/50 L 10/07/21 20:20 78/46 L 10/07/21 20:20 126 H 22 94 10/07/21 20:15 123 H 25 H 92 10/07/21 20:10 79/49 L 10/07/21 20:10 129 H 24 93 10/07/21 20:08 66/44 L 10/07/21 20:08 122 H 24 91 10/07/21 20:07 80/39 L 10/07/21 20:07 119 H 18 92 10/07/21 20:06 73/44 L 10/07/21 20:06 120 H 21 92 10/07/21 20:02 75/37 L 10/07/21 20:02 121 H 32 H 93 10/07/21 20:00 119 H 36 H 93 10/07/21 20:00 75/45 L PG Care Time/CCT Total # of Minutes Spent Total Time Spent with Patient: Total time spent is greater than 50% in coordination of care (as documented) at patient's floor/unit and/or counseling patient: Coding Level of Care Code 35326 Subseq Hosp Care Lvl 2 Diagnoses Kidney stone on right side N20.0 Sepsis A41.9
[2021-10-08] MEDS ORDERED: LACTATED RINGER'S 500 ML IV ONE (08:00)
[2021-10-08] MEDS ORDERED: ALBUMIN 5% 250 ML IV ONE (08:00)
[2021-10-08] MEDS ORDERED: VASOPRESSIN 20 UNITS in 0.9 % SODIUM CHLORIDE 100 ML IV SCH (08:00)
[2021-10-08] MEDS ORDERED: POTASSIUM CHLORIDE / WTR 20 MEQ/100 ML PLCT IV ONE ×2 (08:00→10:45)
--- NOTE | 2021-10-08 08:20 | Critical Care Progress Note ---
Date of Service October 08, 2021 Assessment & Plan (1) Septic shock: (2) Hydronephrosis concurrent with and due to calculi of kidney and ureter: (3) Acute hypoxemic respiratory failure: Plan 86-year-old female presenting with abdominal discomfort found to have right pyelonephritis and obstructing stone. Patient septic in the ER after 3 L of fluid. Neurologic: No issues. Pain control with as needed Dilaudid. Pulmonary: Mild hypoxemia. Continue supplemental oxygen. Monitor for volume overload. Incentive spirometer ordered. Cardiovascular: Septic shock. Continue Levophed and wean as able. Vasopressin added to augment Levophed. We will give a bolus of IV albumin and lactated Ringer's. Right femoral central line placed 10/07/2021. Hold antihypertensives. Gastrointestinal: NPO while on high-dose pressors. Protonix 40 mg daily. Renal: Obstructing hydroureteronephrosis on the right. Status post stone removal and stent placement. Mild YOGI. Replace electrolytes per protocol. Infectious disease: Continue broad-spectrum antibiotics. Blood and urine cultures growing gram- negative rods. Hematologic: No issues Endocrine: Maintain euglycemia VTE prophylaxis: SCDs CODE STATUS: Conditional code Family at bedside: Not available at bedside at this time. Disposition: ICU Case discussed with bedside RN. I have personally spent 36 minutes of critical care time in the direct management of this patient. This is a life/limb threatening event. This includes time spent evaluating patient, direct bedside care, chart review, placing orders, interpretation of diagnostic studies, discussion with consultants, patient, and family members, as well as other required patient management activities. This time is exclusive of all separately billable procedures, and teaching time and separate from and in addition to any other critical care service time. Thank you for allowing us to participate in the care of this patient. Admission and Anticipated Discharge Date Admission Date: October 07, 2021 Subjective Patient seen and examined this morning. She is alert and oriented. She is hungry and would like to eat. She is currently requiring high doses of Levophed. Vasopressin drip initiated. She denies any abdominal pain. Draining urine from her Adhikari. Review of Systems Review of Systems: All systems reviewed & are unremarkable except as noted in HPI & below Physical Exam Physical Exam: Constitutional: Obese appearing female no apparent distress. Nasal cannula in place. Eyes: Pupils are equal round and reactive to light. Conjunctivae are normal. Anicteric sclera. Ears nose, mouth and throat: No obvious deformities. Neck: Trachea is midline. Visual inspection is normal. Respiratory: Bibasilar diminishment. Mild tachypnea. Cardiovascular: Regular rate and rhythm. No murmurs. Trace edema. Gastrointestinal: Normal bowel sounds, soft, nontender and nondistended. No hepatosplenomegaly noted. Musculoskeletal: No cyanosis. Patient is able to move all extremities. Diffusely weak. Skin: No rashes, warm dry and intact. Neurologic: No obvious focal neurological deficits seen. Psychiatric: Alert and oriented x3 with a euthymic affect. Results & Data Results & Data ([facility]) Vital Signs (Past 12 Hours) Vital Signs Temp Pulse Resp BP Pulse Ox O2 Del Method O2 Flow Rate 10/08/21 05:30 121 H 22 90 4 10/08/21 05:30 91/51 L 10/08/21 05:15 125 H 22 90 4 10/08/21 05:00 117 H 19 92 10/08/21 05:00 83/47 L 10/08/21 04:45 120 H 23 93 10/08/21 04:30 121 H 27 H 92 10/08/21 04:30 94/54 L 10/08/21 04:00 117 H 20 91 10/08/21 04:00 83/46 L 10/08/21 03:30 119 H 21 91 10/08/21 03:30 95/42 L 10/08/21 03:00 117 H 20 91 10/08/21 03:00 82/47 L 10/08/21 02:30 115 H 19 92 10/08/21 02:30 85/45 L 10/08/21 02:00 115 H 22 92 10/08/21 02:00 84/48 L 10/08/21 01:31 78/44 L 10/08/21 01:31 115 H 19 94 10/08/21 01:30 114 H 18 93 10/08/21 01:30 77/41 L 10/08/21 01:02 116 H 19 92 10/08/21 03:26 37.1 C 10/07/21 23:30 114 H 10/08/21 01:01 84/42 L 10/08/21 01:00 117 H 20 92 5 10/08/21 00:30 117 H 21 92 5 10/08/21 00:30 93/44 L 10/08/21 00:01 82/39 L 10/08/21 00:01 115 H 18 93 10/08/21 00:00 115 H 21 94 10/08/21 00:00 79/43 L 10/07/21 23:30 114 H 20 92 10/07/21 23:30 85/42 L 10/07/21 23:24 120 H 25 H 94 10/07/21 23:24 92/46 L 10/07/21 23:03 120 H 21 94 10/07/21 23:03 87/40 L 10/07/21 23:00 119 H 21 94 10/07/21 23:00 72/38 L 10/07/21 23:56 Nasal Cannula 5 10/07/21 22:45 119 H 22 89 L 10/07/21 22:32 88/42 L 10/07/21 22:32 119 H 23 90 10/07/21 22:30 118 H 22 91 10/07/21 22:30 74/46 L 10/07/21 22:20 81/56 L 10/07/21 22:20 120 H 23 92 10/07/21 22:15 116 H 24 91 10/07/21 22:05 82/45 L 10/07/21 22:05 120 H 24 84 L 10/07/21 22:03 78/45 L 10/07/21 22:03 115 H 16 92 10/07/21 22:01 76/41 L 10/07/21 22:01 115 H 16 93 10/07/21 22:00 116 H 15 93 10/07/21 22:00 74/45 L 10/07/21 21:45 116 H 17 94 10/07/21 21:30 120 H 30 H 89 L 10/07/21 21:30 91/52 L 10/07/21 21:15 116 H 18 93 10/07/21 21:02 66/41 L 10/07/21 21:02 121 H 20 91 10/07/21 21:00 121 H 22 90 10/07/21 21:00 80/49 L 10/07/21 20:45 121 H 22 94 10/07/21 20:37 121 H 20 91 10/07/21 20:37 91/49 L 10/07/21 20:30 127 H 23 93 10/07/21 20:30 80/55 L 10/07/21 20:26 88/51 L 10/07/21 20:26 126 H 20 93 10/07/21 20:26 89/50 L 10/07/21 20:20 78/46 L 10/07/21 20:20 126 H 22 94 Coding Level of Care Code Critical Care 1st 30-74 mins Diagnoses Septic shock A41.9; R65.21 Hydronephrosis concurrent with and due to calculi of kidney and ureter N13.2 Acute hypoxemic respiratory failure J96.01 Time Spent (min) 36
[2021-10-08] MEDS: INSULIN ASPART PER UNIT SC SCH ×4 (08:50→20:55)
[2021-10-08] MEDS: ROSUVASTATIN CALCIUM 10 MG TAB PO SCH (09:32)
[2021-10-08] MEDS: HYDROCORTISONE SOD 50 MG in SYRINGE 0 ML IV SCH ×3 (09:32→21:57)
--- NOTE | 2021-10-08 09:47 | XRay Report ---
KUB HISTORY: abdominal distension and pain COMPARISON: Abdomen and pelvis CT 10/07/2021. FINDINGS: Mild gaseous distention of the stomach. Otherwise, no dilated loops of small bowel to sugge st a bowel obstruction. A right ureteral stent appears in good position. The lung bases are clear. No definite ureteral calculi. No renal calculi. No ureteral calculi. No pneumoperitoneum or pneumatosi s. IMPRESSION: 1. Mild gaseous distention of the stomach. Otherwise, no evidence for bowel obstruction. 2. A right ureteral stent appears in good position. No definite ureteral calculi. ACT 112: Negative or not required by law. Electronically signed by: Yovani Ramirez M.D. 10/08/2021 9:45 AM
--- NOTE | 2021-10-08 09:48 | XRay Report ---
XR chest 1V portable HISTORY: shortness of breath COMPARISON: Chest 10/07/2021. FINDINGS: No pneumothorax. The cardiac silhouette is mildly enlarged. There is progressive perihilar interstitial/vascular thickening consistent with mild pulmonary edema. There are small bilateral pleu ral effusions and hazy bibasilar airspace opacities. IMPRESSION: 1. Interval development of mild interstitial pulmonary edema and small bilateral pleural effusions. 2. Hazy bibasilar opacities may represent the layering pleural effusions. Bibasilar atelectasis/pneum onia could also have a similar appearance. ACT 112: Negative or not required by law. Electronically signed by: Yovani Ramirez M.D. 10/08/2021 9:47 AM
[2021-10-08] MEDS: ACETAMINOPHEN 325 MG TAB PO PRN ×2 (10:30→23:36)
[2021-10-08 10:31] LABS: BUN Creatinine Ratio 13.3 (10-20); Calcium 7.4 mg/dl (8.5-10.1); Creatinine Clr Calc Pharmacy 32.4 ml/min; Est GFR (African American) 50.6 ml/min; Est GFR (Non-African American) 43.7 ml/min; Potassium 3.7 mmol/L (3.5-5.1)
[2021-10-08] MEDS: PHENYLEPHRINE HCL 20 MG in DEXTROSE 5% 500 ML IV SCH ×4 (10:35→17:44)
[2021-10-08] MEDS ORDERED: SODIUM BICARB 8.4% INJ 50 MEQ/50 ML SYR IV STA (10:36)
[2021-10-08] MEDS: LANTUS PER UNIT CHARGE SQ SCH ×2 (10:38→20:56)
[2021-10-08] MEDS ORDERED: CALCIUM GLUCONATE 10% 1,000 MG in DEXTROSE 5% 50 ML IV ONE (10:45)
[2021-10-08] MEDS: MAGNESIUM SULFATE / D5W 1 GM/100 ML BAG IV SCH ×4 (10:52→16:56)
[2021-10-08] MEDS: PANTOprazole 40 MG in SYRINGE 0 ML IV SCH (11:10)
--- NOTE | 2021-10-08 11:37 | Electrocardiogram Report ---
Test Reason : Blood Pressure : / mmHG Vent. Rate : 122 BPM Atrial Rate : 122 BPM P-R Int : 148 ms QRS Dur : 070 ms QT Int : 310 ms P-R-T Axes : 084 -53 085 degrees QTc Int : 441 ms Poor data quality, interpretation may be adversely affected Sinus tachycardia with Premature ventricular complexes Left anterior fascicular block Poor R wave progression, consider anterior CO vs. lead placement vs. LVH Abnormal ECG When compared with ECG of 17-AUG-2020 13:30, No significant change was found Confirmed by Yoel East ([id number]) on 10/08/2021 11:36:52 AM Referred By: REFERRED SELF Confirmed By:Yoel East
[2021-10-08 11:43] LABS: Adenovirus F 40/41 PCR Not Detected (NotDetected); Astrovirus PCR Not Detected (NotDetected); Campylobacter PCR Not Detected (NotDetected); Clostridium diff Toxin A/B PCR Not Detected (NotDetected); Cryptosporidium PCR Not Detected (NotDetected); Cyclospora cayetanensis PCR Not Detected (NotDetected); Entamoeba histolytica PCR Not Detected (NotDetected); Enteroaggregative E.coli(EAEC) Not Detected (NotDetected); Enteropathogenic E.coli (EPEC) Not Detected (NotDetected); Enterotoxigenic E.coli (ETEC) Not Detected (NotDetected); Giardia lamblia PCR Not Detected (NotDetected); Norovirus GI/GII PCR Not Detected (NotDetected); Plesiomonas shigelloides PCR Not Detected (NotDetected); Rotavirus A PCR Not Detected (NotDetected); Salmonella PCR Not Detected (NotDetected); Sapovirus PCR Not Detected (NotDetected); Shiga-like Toxin E.coli (STEC) Not Detected (NotDetected); Shigella/Enteroinvasive E.coli Not Detected (NotDetected); Vibrio cholerae PCR Not Detected (NotDetected); Vibrio species PCR Not Detected (NotDetected); Yersinia enterocolitica PCR Not Detected (NotDetected)
[2021-10-08] MEDS ORDERED: VANCOMYCIN HCL 1,250 MG in SODIUM CHLORIDE 0.9% 250 ML IV SCH (12:00)
[2021-10-08] MEDS ORDERED: NS FLUSH ONE (12:29)
[2021-10-08] MEDS: cefTRIAXone SODIUM 2,000 MG in DEXTROSE 5% 50 ML IV SCH (13:16)
[2021-10-08] MEDS: HYDROmorphone INJ 0.5 MG/0.5 ML SYR IV PRN ×2 (13:23→21:57)
--- NOTE | 2021-10-08 18:18 | Hospitalist Progress Note ---
Date of Service October 08, 2021 Assessment & Plan (1) Sepsis: (2) Kidney stone on right side: (3) Colitis: (4) Hydronephrosis concurrent with and due to calculi of kidney and ureter: (5) Hypokalemia: (6) Thrombocytopenia: (7) Diabetes mellitus, type II: (8) HTN (hypertension): (9) CKD (chronic kidney disease), stage III: Plan Per admitting service notes with addendum: This is a 86-year-old female who has a significant past medical history of well- controlled T2DM, HTN, HLD, CKD stage III who presents to ED secondary to abdominal pain x1 year that is worsening. Per CMS criteria patient meets for sepsis in setting of leukopenia, tachycardia Urine and blood cultures obtained Initiated on IV Zosyn Lactic acid 3.6, repeat 3.4 She received 2.5 L thus far IV fluid in ED Source: 4 mm obstructing stone at right UVJ and UTI, likely urosepsis Septic shock secondary to gram-negative bacilli bacteremia and complicated UTI 4 mm obstructing kidney stone at right UVJ with mild to moderate hydronephrosis Consult urology Dr. Sage - to take to OR tonight Consult anesthesia Remain n.p.o. -last meal was at 7-8 o'clock this morning breakfast; however she vomited it up Continue broad-spectrum antibiotics with IV Zosyn until cultures return Patient has received a significant IV fluid, 2.5 L with an additional liter running now Trend lactic acid Continue IV fluids -cautiously in setting of age and prior history of volume overload and previous hospitalization Stool culture, stool for C. difficile 10/07: Status post right ureteral stent placement 10/08 Still on Levophed plus vasopressin Hydrocortisone added Echocardiogram noted Blood culture and urine culture positive for gram-negative bacilli Continue IV antibiotics Hypokalemia Replaced Thrombocytopenia Platelet 90 Possibly in setting of sepsis, during prior hospitalization with anaplasmosis she had thrombocytopenia as well and required platelet transfusion Platelet now 40 3K Monitor T2DM Well controlled, A1c 5.8 May/2021 A1c in a.m. Lantus/NovoLog per protocol HTN Hold losartan in setting of lower blood pressure DVT prophylaxis: SCDS for now Dispo: Pending May need acute rehab DNR/DNI PCP: Barbi Olmedo Admission and Anticipated Discharge Date Admission Date: October 07, 2021 Subjective Follow-up for septic shock, complicated UTI, UVJ stone, etc. Seen sitting up in bed, comfortable, watching TV, awake, alert, oriented x3 States she feels better compared to yesterday Denies abdominal pain or back pain No fevers or chills no chest pain, dyspnea, palpitations, dizziness No other symptoms Review of Systems Review of Systems: all noted and negative except for above Physical Exam Physical Exam: General- oriented x 3, not in distress, speaks in sentences with no effort or accessory muscle use Head- atraumatic Eyes- PERRL, EOMI, anicteric ENT- oropharynx clear Neck- supple, no JVD, no adenopathy, no thyromegaly; carotids +2/2, no bruits appreciated Lungs- clear to auscultation bilaterally, no rales/wheezes Heart- normal rate, regular rhythm; no murmur, no gallop, no rub appreciated Abdomen- normal bowel sounds, nondistended, soft, nontender, no masses or hepatosplenomegaly Extremities-mild lower extremity edema , no calf tenderness; peripheral pulses intact Neuro- alert, oriented x 3; CN 2-12 grossly intact; motor 5/5 bilaterally;sensation 100% on all extremities; no other gross focal neurologic deficits Skin- warm & dry Results & Data Results & Data ([facility]) Vital Signs (Past 12 Hours) Vital Signs Pulse Resp BP Pulse Ox O2 Del Method 10/08/21 16:50 112 H 21 91 10/08/21 16:45 109/60 10/08/21 16:45 113 H 22 91 10/08/21 16:30 106 H 16 91 10/08/21 16:30 79/48 L 10/08/21 16:19 108 H 18 92 10/08/21 16:19 82/50 L 10/08/21 16:15 107 H 19 92 10/08/21 16:15 84/50 L 10/08/21 16:00 110 H 33 H 92 10/08/21 16:00 90/48 L 10/08/21 15:51 109 H 31 H 91 10/08/21 15:51 86/48 L 10/08/21 15:45 116 H 25 H 10/08/21 15:45 66/45 L 10/08/21 15:30 112 H 27 H 90 10/08/21 15:30 92/55 L 10/08/21 15:15 113 H 30 H 92 10/08/21 15:15 96/68 L 10/08/21 15:00 110 H 22 90 10/08/21 15:00 85/47 L 10/08/21 14:45 108 H 15 10/08/21 14:45 82/47 L 10/08/21 14:30 109 H 15 10/08/21 14:30 75/45 L 10/08/21 14:23 112 H 17 91 10/08/21 14:23 86/50 L 10/08/21 14:15 111 H 17 10/08/21 14:15 74/47 L 10/08/21 14:10 72/45 L 10/08/21 14:10 111 H 17 10/08/21 14:00 114 H 17 10/08/21 14:00 72/45 L 10/08/21 13:57 86/51 L 10/08/21 13:57 117 H 21 94 10/08/21 13:55 114 H 15 91 10/08/21 13:55 62/41 L 10/08/21 13:50 116 H 17 91 10/08/21 13:50 66/43 L 10/08/21 13:45 116 H 17 92 10/08/21 13:45 68/43 L 10/08/21 13:40 64/44 L 10/08/21 13:40 118 H 17 91 10/08/21 08:00 Nasal Cannula 10/08/21 13:35 120 H 20 90 10/08/21 13:35 68/41 L 10/08/21 13:30 120 H 19 10/08/21 13:30 68/46 L 10/08/21 13:25 124 H 27 H 89 L 10/08/21 13:25 96/52 L 10/08/21 13:20 125 H 27 H 90 10/08/21 13:20 84/67 L 10/08/21 13:15 123 H 24 10/08/21 13:15 98/64 L 10/08/21 13:10 125 H 27 H 10/08/21 13:10 81/56 L 10/08/21 13:05 124 H 23 10/08/21 13:05 94/57 L 10/08/21 13:00 124 H 25 H 90 10/08/21 13:00 93/52 L 10/08/21 12:55 126 H 27 H 90 10/08/21 12:55 85/55 L 10/08/21 12:50 125 H 26 H 10/08/21 12:50 92/69 L 10/08/21 12:45 123 H 22 10/08/21 12:45 87/53 L 10/08/21 12:40 123 H 22 10/08/21 12:40 86/53 L 10/08/21 12:37 80/51 L 10/08/21 12:37 126 H 26 H 90 10/08/21 12:35 128 H 25 H 10/08/21 12:35 65/49 L 10/08/21 12:30 126 H 26 H 90 10/08/21 12:30 86/49 L 10/08/21 12:25 128 H 23 91 10/08/21 12:25 91/56 L 10/08/21 12:20 125 H 22 10/08/21 12:20 83/50 L 10/08/21 12:15 127 H 25 H 90 10/08/21 12:15 86/49 L 10/08/21 12:10 130 H 27 H 90 10/08/21 12:10 93/41 L 10/08/21 12:06 89/49 L 10/08/21 12:06 128 H 28 H 89 L 10/08/21 12:05 130 H 21 85 L 10/08/21 12:02 128 H 25 H 90 10/08/21 12:02 88/54 L 10/08/21 12:00 128 H 26 H 10/08/21 11:55 130 H 32 H 91 10/08/21 11:55 87/56 L 10/08/21 11:50 129 H 26 H 10/08/21 11:50 90/49 L 10/08/21 11:45 129 H 25 H 90 10/08/21 11:40 130 H 27 H 90 10/08/21 11:40 88/50 L 10/08/21 11:35 131 H 33 H 88 L 10/08/21 11:35 86/53 L 10/08/21 11:30 135 H 24 90 10/08/21 11:30 112/84 10/08/21 11:25 127 H 24 10/08/21 11:25 96/58 L 10/08/21 09:05 125 H 29 H 90 10/08/21 09:05 94/51 L 10/08/21 09:04 94/54 L 10/08/21 09:04 126 H 30 H 89 L 10/08/21 09:00 126 H 18 87 L 10/08/21 08:55 124 H 28 H 90 10/08/21 08:55 96/63 L 10/08/21 08:50 127 H 24 89 L 10/08/21 08:50 110/73 10/08/21 08:48 103/66 10/08/21 08:48 127 H 33 H 10/08/21 08:45 127 H 29 H 90 10/08/21 08:40 124 H 31 H 91 10/08/21 08:35 123 H 32 H 90 10/08/21 08:30 124 H 47 H 92 10/08/21 08:30 94/58 L 10/08/21 08:25 125 H 27 H 91 10/08/21 08:20 129 H 32 H 91 10/08/21 08:17 130 H 27 H 89 L 10/08/21 08:17 80/51 L 10/08/21 08:15 126 H 36 H 90 10/08/21 08:10 128 H 25 H 90 10/08/21 08:05 124 H 24 91 10/08/21 08:05 78/60 L 10/08/21 08:00 128 H 27 H 91 10/08/21 08:00 83/48 L 10/08/21 07:55 129 H 27 H 92 10/08/21 07:51 98/44 L 10/08/21 07:51 132 H 31 H 88 L 10/08/21 07:50 135 H 28 H 90 10/08/21 07:46 130 H 24 89 L 10/08/21 07:46 108/73 10/08/21 07:45 130 H 28 H 89 L 10/08/21 07:42 125 H 32 H 90 10/08/21 07:42 103/48 L 10/08/21 07:40 122 H 28 H 91 10/08/21 07:35 130 H 27 H 91 10/08/21 07:31 132 H 26 H 88 L 10/08/21 07:31 91/59 L 10/08/21 07:30 135 H 31 H 88 L 10/08/21 07:25 125 H 25 H 91 10/08/21 07:20 123 H 26 H 91 10/08/21 07:15 123 H 29 H 91 10/08/21 07:10 125 H 25 H 90 10/08/21 07:05 127 H 27 H 90 10/08/21 07:00 125 H 25 H 91 10/08/21 07:00 88/48 L 10/08/21 06:55 123 H 25 H 90 10/08/21 11:20 128 H 25 H 91 10/08/21 11:20 94/56 L 10/08/21 11:16 131 H 25 H 93 10/08/21 11:16 105/56 L 10/08/21 11:15 132 H 31 H 92 10/08/21 11:10 130 H 26 H 90 10/08/21 11:10 105/55 L 10/08/21 11:06 131 H 32 H 90 10/08/21 11:06 74/52 L 10/08/21 11:05 122 H 29 H 89 L 10/08/21 11:00 132 H 29 H 92 10/08/21 11:00 94/73 L 10/08/21 10:55 127 H 24 91 10/08/21 10:55 97/45 L 10/08/21 10:50 129 H 26 H 90 10/08/21 10:50 101/50 L 10/08/21 10:45 128 H 26 H 91 10/08/21 10:45 102/46 L 10/08/21 10:40 128 H 26 H 91 10/08/21 10:40 108/48 L 10/08/21 10:35 130 H 26 H 91 10/08/21 10:30 130 H 18 92 10/08/21 10:30 82/58 L 10/08/21 10:25 133 H 24 91 10/08/21 10:20 128 H 45 H 91 10/08/21 10:20 88/56 L 10/08/21 10:15 133 H 28 H 91 10/08/21 10:10 133 H 27 H 91 10/08/21 10:10 81/49 L 10/08/21 10:05 133 H 30 H 90 10/08/21 10:00 133 H 29 H 90 10/08/21 10:00 97/49 L 10/08/21 09:55 135 H 34 H 90 10/08/21 09:55 92/48 L 10/08/21 09:50 130 H 41 H 90 10/08/21 09:50 90/50 L 10/08/21 09:45 132 H 28 H 91 10/08/21 09:40 137 H 32 H 90 10/08/21 09:40 100/61 10/08/21 09:35 131 H 36 H 90 10/08/21 09:30 132 H 32 H 90 10/08/21 09:30 98/46 L 10/08/21 09:25 131 H 27 H 90 10/08/21 09:22 129 H 30 H 92 10/08/21 09:22 77/45 L 10/08/21 09:20 126 H 29 H 91 10/08/21 09:20 74/48 L 10/08/21 09:15 127 H 26 H 91 10/08/21 09:10 126 H 30 H 91 10/08/21 09:10 95/54 L
[2021-10-08] MEDS: PHENYLEPHRINE HCL 40 MG in DEXTROSE 5% 500 ML IV SCH (18:43)
[2021-10-08] MEDS: ICU ELECTROLYTE REPLACEMENT PROTOCOL SCH (22:15)
[2021-10-09] MEDS: PHENYLEPHRINE HCL 40 MG in DEXTROSE 5% 500 ML IV SCH ×2 (00:14→07:17)
[2021-10-09 04:56] LABS: Hematocrit (blood only) 31.8 % (34.1-44.9); Hemoglobin 10.7 g/dl (12.0-16.0); Mean Corpuscular Hemoglobin 32.3 pg (25.0-34.0); Mean Corpuscular Hgb Conc 33.6 g/dL (32.0-36.0); Mean Corpuscular Volume 96.1 fL (80.0-100.0); Nucleated RBC # (auto) 0.02 K/uL (0-0); Nucleated RBC % (auto) 0.1 %; Platelet Count 31 K/uL (130-400); RDW Coefficient of Variation 12.9 % (11.5-14.5); RDW Standard Deviation 45.5 fL (36.4-46.3); Red Blood Count 3.31 M/uL (3.93-5.22); White Blood Count 25.52 K/ul (4.8-10.8)
[2021-10-09] MEDS: HYDROCORTISONE SOD 50 MG in SYRINGE 0 ML IV SCH ×4 (04:59→21:04)
[2021-10-09 05:22] LABS: BUN Creatinine Ratio 15.9 (10-20); Calcium 7.5 mg/dl (8.5-10.1); Creatinine Clr Calc Pharmacy 45.7 ml/min; Est GFR (African American) 74.6 ml/min; Est GFR (Non-African American) 64.3 ml/min; Magnesium 2.1 mg/dl (1.7-2.4); Phosphorus 3.4 mg/dl (2.5-4.9); Potassium 3.8 mmol/L (3.5-5.1)
[2021-10-09] MEDS: ICU ELECTROLYTE REPLACEMENT PROTOCOL SCH ×2 (05:34→16:22)
[2021-10-09] MEDS ORDERED: STAT IV STA (05:44)
[2021-10-09 05:51] LABS: ALC (manual) 0.26 K/uL (1.2-3.4); ANC (manual) 22.97 K/uL (1.4-6.5); Acanthocytes 2+; Dohle Bodies 1+; Echinocytes 3+; Lymphocytes # (manual) 0.26 K/uL (1.2-3.4); Lymphocytes % (manual) 1 %; Metamyelocytes # (manual) 0.77 K/uL (0-0); Metamyelocytes % (manual) 3 %; Monocytes # (manual) 1.02 K/uL (0.24-0.82); Monocytes % (manual) 4 %; Myelocytes # (manual) 0.51 K/uL (0-0); Myelocytes % (manual) 2 %; Neutrophils # (manual) 22.97 K/uL (1.4-6.5); Neutrophils % (manual) 90 %; Poikilocytosis Present; Polychromasia 1+
[2021-10-09] MEDS ORDERED: POTASSIUM CHLORIDE / WTR 20 MEQ/100 ML PLCT IV ONE (06:00)
[2021-10-09] MEDS ORDERED: CALCIUM GLUCONATE 10% 2,000 MG in DEXTROSE 5% 50 ML IV ONE (06:00)
[2021-10-09 06:25] LABS: Estimated Average Glucose 117 mg/dl; Hemoglobin A1C 5.7 % (4.5-5.6)
--- NOTE | 2021-10-09 07:43 | Urology Progress Note ---
Date of Service October 09, 2021 Assessment & Plan (1) Sepsis: (2) Kidney stone on right side: Plan 86-year-old female with a right 4 mm UVJ calculus and sepsis who is status post cystoscopy with right ureteral stent and Adhikari catheter placement on 10/07/2021 Not unexpected for patient to have increased leukocytosis and creatinine following stent placement. Patient reports feeling subjectively improved. Continue to trend labs. Creatinine improving Continue antibiotics. Follow-up urine cultures and treat accordingly. Currently growing out E. coli in blood and urine cultures Maintain Adhikari catheter until patient has been completely weaned from pressors If primary team is okay with this, can give Flomax and Toradol for stent discomfort Can have a diet from a urologic perspective Urology to follow peripherally. Will set up outpatient follow up for stone treatment. Admission and Anticipated Discharge Date Admission Date: October 07, 2021 Subjective No acute issues overnight. Reports feeling better this morning. Mentating appropriately. Stable vitals at the time of rounding. She remains on pressors. White count has increased to 25.5 from 21.3 today. Creatinine has down trended to 0.82 blood and urine cultures are growing out E. coli. Review of Systems Review of Systems: 14 point review of systems negative outside of what is listed above in HPI Physical Exam Physical Exam: General: Alert and oriented, no acute distress HEENT: Normocephalic, mucous membranes moist Pulmonary: Nonlabored respirations Abdomen: Nondistended : Adhikari catheter draining pink-tinged urine. Extremities: Moves all 4 spontaneously Neuro: No gross deficits Skin: Warm, dry, no rashes noted Results & Data ([facility]) Vital Signs (Past 12 Hours) Vital Signs Temp Pulse Resp BP Pulse Ox O2 Del Method O2 Flow Rate 10/09/21 06:30 97 H 15 10/09/21 06:30 101/61 10/09/21 06:05 96 H 22 94 10/09/21 06:05 109/55 L 10/09/21 06:00 93 H 17 87 L 10/09/21 05:31 98 H 19 10/09/21 05:31 123/71 10/09/21 05:02 103 H 37 H 89 L 10/09/21 05:02 124/104 H 10/09/21 05:00 23 90 10/09/21 04:31 95 H 23 91 10/09/21 04:31 122/73 10/09/21 04:03 103 H 24 10/09/21 04:03 101/57 L 10/09/21 04:00 98 H 25 H 10/09/21 03:30 94 H 25 H 92 10/09/21 03:01 112/47 L 10/09/21 03:01 100 H 21 92 10/09/21 03:00 95 H 25 H 87 L 10/09/21 02:30 95 H 26 H 91 10/09/21 02:30 125/64 10/09/21 02:00 98 H 28 H 91 10/09/21 02:00 112/57 L 10/09/21 01:30 96 H 15 92 10/09/21 01:30 120/73 10/09/21 01:00 95 H 13 93 10/09/21 01:00 114/69 10/09/21 00:30 101 H 19 94 10/09/21 00:30 127/57 L 10/09/21 00:00 100 H 15 89 L 10/09/21 00:00 102/59 L 10/08/21 23:31 104 H 21 86 L 10/08/21 23:31 81/69 L 10/08/21 23:30 99 H 20 10/09/21 00:56 94 H 10/08/21 23:00 97 H 12 91 4 10/08/21 23:00 91/53 L 10/08/21 22:42 97 H 14 92 4 10/08/21 22:42 93/55 L 10/08/21 22:30 99 H 14 90 10/08/21 22:15 86/52 L 10/08/21 22:00 106 H 21 91 10/08/21 22:00 91/55 L 10/08/21 21:45 103 H 36 H 91 10/08/21 21:45 102/58 L 10/08/21 21:30 111/51 L 10/08/21 21:15 105 H 35 H 90 10/08/21 21:00 107 H 30 H 89 L 10/08/21 21:00 103/57 L 10/08/21 20:46 110 H 29 H 88 L 10/08/21 20:30 106 H 45 H 89 L 10/08/21 20:30 107/60 10/08/21 20:15 96/56 L 10/08/21 20:01 108 H 21 90 10/08/21 20:01 95/51 L 10/08/21 20:00 108 H 22 91 10/08/21 19:46 109/49 L 10/08/21 19:55 Nasal Cannula 5 10/08/21 19:47 37.1 C PG Care Time/CCT Total # of Minutes Spent Total Time Spent with Patient: Total time spent is greater than 50% in coordination of care (as documented) at patient's floor/unit and/or counseling patient: Coding Level of Care Code 86329 Subseq Hosp Care Lvl 2 Diagnoses Sepsis A41.9 Kidney stone on right side N20.0
[2021-10-09] MEDS: INSULIN ASPART PER UNIT SC SCH ×4 (07:44→20:31)
[2021-10-09] MEDS: ACETAMINOPHEN 325 MG TAB PO PRN (07:47)
[2021-10-09] MEDS: ROSUVASTATIN CALCIUM 10 MG TAB PO SCH (07:48)
[2021-10-09] MEDS: LANTUS PER UNIT CHARGE SQ SCH ×2 (07:48→21:03)
[2021-10-09] MEDS ORDERED: FUROSEMIDE INJ 20 MG/2 ML VIAL IV ONE (08:16)
[2021-10-09] MEDS: PANTOprazole 40 MG in SYRINGE 0 ML IV SCH (09:10)
--- NOTE | 2021-10-09 09:37 | Critical Care Progress Note ---
Date of Service October 09, 2021 Assessment & Plan (1) Sepsis: Plan: Reason Critically Ill: 86-year-old female here with a PMHx significant for CKD 3, thrombocytopenia, nephrolithiasis, DM2, and hypertension, who presented with renal colic secondary to nephrolithiasis (now status post right cystoscopy/stent placement) who was admitted for hypotension/sepsis. Neuro - [facility] ICU: NEGATIVE Sedation: Dilaudid as needed. Otherwise, no concerns Analgesia: Tylenol 650 every 4 hours as needed Cardiac - --Septic shock From E. coli gram-negative pansensitive bacteremia * Phenylephrine 0.3 mcg/kg/min every 24 hours. We will gradually titrated off * On hydrocortisone 50 mg every 6 Pulmonary - -- Acute hypoxic respiratory failure Combination of sepsis along with volume overload Continue with O2 supplementation to keep O2 between 90-92% GI - Tolerating DM2 diet well. IV pantoprazole 40 mg daily. RENAL/LYTES - * Obstructing hydroureteronephrosis on the right. Now status post removal and stent placement. * Replace lytes as needed. * Pansensitive E. coli sepsis with urinary source. Now on ceftriaxone. - * Right obstructing hydroureteronephrosis now s/p removal and stent placement. Management as above (see renal/lytes). ENDO - * Maintain euglycemia HEME - Stable H&H. ID - * Blood, urine cultures growing pansensitive E. coli. * Now on Rocephin. LINES/IV ACCESS - PIVs intact. DVT PROPHYLAXIS - SCDs Thank you for allowing us to be part of this patient's care. Please refer to Dr. Felder's documentation for any further recommendations. (2) Acute hypoxemic respiratory failure: (3) Thrombocytopenia: (4) CKD (chronic kidney disease), stage III: (5) Diabetes mellitus, type II: Admission and Anticipated Discharge Date Admission Date: October 07, 2021 Supervising Physician Co-Signing Physician Notes Dr. Siddiqui was the resident-physician during care of patient. I separately evaluated patient for claudio portions of the history and the exam. I was present during the critical portion of medical decision making, and I discussed the case with the resident. I generally agree with the findings and plan except for any additions/exceptions noted. Patient seen and examined at bedside. No acute distress, no adverse events overnight. Patient was on 0.3 of phenylephrine at the time of examination. We were able to titrate down to 0.2. Map was in the high 60s. Denied any headache, no nausea, no vomiting. Patient just finished breakfast. Constitutional: No acute distress HEENT: EOMI, PERRLA Respiratory system: Good air entry bilaterally, no wheeze, no rhonchi, positive crackles bilateral lower lobes CVS: S1-S2 positive, no murmurs or gallops Abdomen: Soft, nontender, nondistended, positive bowel sounds x4 Extremities: +2 pulses bilaterally radialis/ dorsalis pedis, no cyanosis, +1 pitting edema bilateral lower extremity Neuro: Awake alert oriented x3 Psych: Normal mood and affect G/U: Positive Adhikari --Prophylaxis VTE: IPC GI: Pantoprazole Lines: Right femoral Diet: Cardiac Plan: In/out: +2.4 L, urine output 2375, +6.1 L since coming to the hospital Patient has acute on chronic thrombocytopenia. Continue to hold DVT prophylaxis. Currently on hydrocortisone 50 mg every 6 hours. Starting tomorrow we will go down to every 8 hours and gradually titrated off Try to taper phenylephrine off. Once the patient is off phenylephrine we will discontinue the femoral central line. Continue with Rocephin for at least 7 days from negative blood culture. Repeat blood cultures today 20 mg of Lasix given to the patient. Incentive spirometer will be beneficial I have personally spent 35 minutes of critical care time in the direct management of this patient. This is a life/limb threatening event. This includes time spent evaluating patient, direct bedside care, chart review, placing orders, interpretation of diagnostic studies, discussion with consultants, patient, and/or family members regarding treatment decisions, as well as other required patient management activities. This time is exclusive of all separately billable procedures, and teaching time and separate from and in addition to any other critical care service time. Subjective Pt is alert and oriented x3 this morning. She appears clinically improved today. She endorses SOB, which she has at baseline. She denies being on home oxygen or CPAP. She further denies headache, chest pain, nausea, vomiting, or abdominal pain. Review of Systems Review of Systems: All systems reviewed & are unremarkable except as noted in HPI & below Physical Exam Physical Exam: General: Well-appearing, alert, interactive, and in no acute distress. HEENT: Normocephalic, atraumatic. EOM intact. Good conjugate gaze. Nares patent. Moist mucosal membranes. Neck: Supple. Normal ROM. CV: Regular rate and rhythm. Normal S1 and S2. No murmurs gallops or rubs. Currently wearing SCDs. No pedal edema. Respiratory: Normal respiratory effort. Lungs clear to auscultation bilaterally. Mild bibasilar crackles, otherwise no rhonchi, or wheezes. Abdomen: Soft, nondistended abdomen. No bruits heard on auscultation. No tenderness to deep palpation. No guarding or rebound. Extremities: Capillary refill <2 sec. 2+ dp equal bilaterally. Neuro: Alert and oriented x3. Skin: Intact, without rashes, lesions, or erythema. Results & Data Results & Data ([facility]) Vital Signs (Past 12 Hours) Vital Signs Pulse Resp BP Pulse Ox O2 Flow Rate 10/09/21 08:01 95/40 L 10/09/21 08:01 103 H 30 H 90 10/09/21 08:00 99 H 26 H 91 10/09/21 07:31 130/93 10/09/21 07:31 105 H 42 H 91 10/09/21 07:30 108 H 28 H 90 10/09/21 07:00 95 H 21 92 10/09/21 07:00 110/59 L 10/09/21 06:30 97 H 15 10/09/21 06:30 101/61 10/09/21 06:05 96 H 22 94 10/09/21 06:05 109/55 L 10/09/21 06:00 93 H 17 87 L 10/09/21 05:31 98 H 19 10/09/21 05:31 123/71 10/09/21 05:02 103 H 37 H 89 L 10/09/21 05:02 124/104 H 10/09/21 05:00 23 90 10/09/21 04:31 95 H 23 91 10/09/21 04:31 122/73 10/09/21 04:03 103 H 24 10/09/21 04:03 101/57 L 10/09/21 04:00 98 H 25 H 10/09/21 03:30 94 H 25 H 92 10/09/21 03:01 112/47 L 10/09/21 03:01 100 H 21 92 10/09/21 03:00 95 H 25 H 87 L 10/09/21 02:30 95 H 26 H 91 10/09/21 02:30 125/64 10/09/21 02:00 98 H 28 H 91 10/09/21 02:00 112/57 L 10/09/21 01:30 96 H 15 92 10/09/21 01:30 120/73 10/09/21 01:00 95 H 13 93 10/09/21 01:00 114/69 10/09/21 00:30 101 H 19 94 10/09/21 00:30 127/57 L 10/09/21 00:00 100 H 15 89 L 10/09/21 00:00 102/59 L 10/08/21 23:31 104 H 21 86 L 10/08/21 23:31 81/69 L 10/08/21 23:30 99 H 20 10/09/21 00:56 94 H 10/08/21 23:00 97 H 12 91 4 10/08/21 23:00 91/53 L 10/08/21 22:42 97 H 14 92 4 10/08/21 22:42 93/55 L 10/08/21 22:30 99 H 14 90 10/08/21 22:15 86/52 L 10/08/21 22:00 106 H 21 91 10/08/21 22:00 91/55 L 10/08/21 21:45 103 H 36 H 91 10/08/21 21:45 102/58 L Resident Activity Tracking Resident Involvement: Resident Care Provided Care Provided: Adult Hospital Medicine
[2021-10-09] MEDS ORDERED: NS FLUSH ONE (10:29)
[2021-10-09] MEDS: cefTRIAXone SODIUM 2,000 MG in DEXTROSE 5% 50 ML IV SCH (11:26)
--- NOTE | 2021-10-09 11:36 | Billing Data ---
Date of Service October 09, 2021 Coding Level of Care Code Critical Care 1st 30-74 mins Time Spent (min) 35
--- NOTE | 2021-10-09 16:23 | Hospitalist Progress Note ---
Date of Service October 09, 2021 Assessment & Plan (1) Sepsis: (2) Kidney stone on right side: (3) Colitis: (4) Hydronephrosis concurrent with and due to calculi of kidney and ureter: (5) Hypokalemia: (6) Thrombocytopenia: (7) Diabetes mellitus, type II: (8) HTN (hypertension): (9) CKD (chronic kidney disease), stage III: Plan Per admitting service notes with addendum: This is a 86-year-old female who has a significant past medical history of well- controlled T2DM, HTN, HLD, CKD stage III who presents to ED secondary to abdominal pain x1 year that is worsening. Per CMS criteria patient meets for sepsis in setting of leukopenia, tachycardia Urine and blood cultures obtained Initiated on IV Zosyn Lactic acid 3.6, repeat 3.4 She received 2.5 L thus far IV fluid in ED Source: 4 mm obstructing stone at right UVJ and UTI, likely urosepsis Septic shock secondary to gram-negative bacilli bacteremia and complicated UTI 4 mm obstructing kidney stone at right UVJ with mild to moderate hydronephrosis Consult urology Dr. Sage - to take to OR tonight Consult anesthesia Remain n.p.o. -last meal was at 7-8 o'clock this morning breakfast; however she vomited it up Continue broad-spectrum antibiotics with IV Zosyn until cultures return Patient has received a significant IV fluid, 2.5 L with an additional liter running now Trend lactic acid Continue IV fluids -cautiously in setting of age and prior history of volume overload and previous hospitalization Stool culture, stool for C. difficile 10/07: Status post right ureteral stent placement 10/09 weaning off Levophed plus vasopressin Hydrocortisone Echocardiogram noted Blood culture and urine culture positive for E coli repeat blood cultures: pending Continue IV Ceftriaxone Hypokalemia Replaced Thrombocytopenia Platelet 90 Possibly in setting of sepsis, during prior hospitalization with anaplasmosis she had thrombocytopenia as well and required platelet transfusion Platelet now 40--> 31k Monitor T2DM Well controlled, A1c 5.8 May/2021 A1c 5.7 Lantus/NovoLog per protocol HTN Hold losartan in setting of lower blood pressure DVT prophylaxis: SCDS for now Dispo: Pending May need acute rehab DNR/DNI PCP: Barbi Olmedo Admission and Anticipated Discharge Date Admission Date: October 07, 2021 Subjective ff up for septic shock, etc seen resting in bed, comfortable sitting up in good spirits states she has some dyspnea no cough no chest pain, palpitations, dizziness no other symptoms Review of Systems Review of Systems: all noted and negative except for above Physical Exam Physical Exam: General- oriented x 3, not in distress, speaks in sentences with no effort or accessory muscle use Eyes- anicteric Neck- no JVD Lungs- clear breath sounds bilaterally Heart- normal rate, regular rhythm; no murmurs Abdomen- normal bowel sounds, nondistended, soft, no tenderness Extremities-mild lower extremity pretibial edema, no calf tenderness Neuro- alert, oriented x 3; no gross focal neurologic deficits Skin- warm & dry Results & Data Results & Data ([facility]) Vital Signs (Past 12 Hours) Vital Signs Temp Pulse Resp BP Pulse Ox O2 Del Method O2 Flow Rate 10/09/21 15:00 101 H 21 91 10/09/21 15:00 106/60 10/09/21 14:00 106 H 22 94/61 L 90 10/09/21 15:43 36.6 C 10/09/21 15:41 100 H 10/09/21 13:00 100 H 19 97/56 L 91 Nasal Cannula 5 10/09/21 12:00 105 H 28 H 90 10/09/21 11:30 108 H 23 91 10/09/21 11:30 96/72 L 10/09/21 11:38 36.9 C 10/09/21 11:00 100 H 22 90 10/09/21 11:00 104/59 L 10/09/21 10:30 85/57 L 10/09/21 10:30 103 H 24 90 10/09/21 10:00 100 H 21 90 Nasal Cannula 5 10/09/21 10:00 103/62 10/09/21 09:00 103 H 21 90 10/09/21 08:00 Nasal Cannula 5 10/09/21 08:00 36.8 C 10/09/21 08:01 95/40 L 10/09/21 08:01 103 H 30 H 90 10/09/21 08:00 99 H 26 H 91 10/09/21 07:31 130/93 10/09/21 07:31 105 H 42 H 91 10/09/21 07:30 108 H 28 H 90 10/09/21 07:00 95 H 21 92 10/09/21 07:00 110/59 L 10/09/21 06:30 97 H 15 10/09/21 06:30 101/61 10/09/21 06:05 96 H 22 94 10/09/21 06:05 109/55 L 10/09/21 06:00 93 H 17 87 L 10/09/21 05:31 98 H 19 10/09/21 05:31 123/71 10/09/21 05:02 103 H 37 H 89 L 10/09/21 05:02 124/104 H 10/09/21 05:00 23 90 10/09/21 04:31 95 H 23 91 10/09/21 04:31 122/73 all noted and reviewed including below
[2021-10-10] MEDS: HYDROCORTISONE SOD 50 MG in SYRINGE 0 ML IV SCH ×2 (04:44→16:54)
[2021-10-10] MEDS: PHENYLEPHRINE HCL 40 MG in DEXTROSE 5% 500 ML IV SCH (04:57)
[2021-10-10 05:58] LABS: BUN Creatinine Ratio 22.3 (10-20); Calcium 8.4 mg/dl (8.5-10.1); Creatinine Clr Calc Pharmacy 39.8 ml/min; Est GFR (African American) 63.2 ml/min; Est GFR (Non-African American) 54.5 ml/min; Magnesium 1.9 mg/dl (1.7-2.4); Phosphorus 2.2 mg/dl (2.5-4.9); Potassium 3.2 mmol/L (3.5-5.1)
[2021-10-10] MEDS ORDERED: POTASSIUM PHOS 3 MMOL/1 ML INFUSION IV STA (06:16)
[2021-10-10 06:18] LABS: Hematocrit (blood only) 30.3 % (34.1-44.9); Hemoglobin 10.4 g/dl (12.0-16.0); Mean Corpuscular Hemoglobin 32.2 pg (25.0-34.0); Mean Corpuscular Hgb Conc 34.3 g/dL (32.0-36.0); Mean Corpuscular Volume 93.8 fL (80.0-100.0); Nucleated RBC # (auto) 0.02 K/uL (0-0); Nucleated RBC % (auto) 0.1 %; Platelet Count 27 K/uL (130-400); RDW Coefficient of Variation 13.1 % (11.5-14.5); RDW Standard Deviation 44.9 fL (36.4-46.3); Red Blood Count 3.23 M/uL (3.93-5.22); White Blood Count 26.17 K/ul (4.8-10.8)
[2021-10-10] MEDS: ICU ELECTROLYTE REPLACEMENT PROTOCOL SCH ×3 (06:21→23:07)
[2021-10-10 06:26] LABS: Basophils # (auto) 0.09 K/uL (0-0.2); Basophils % (auto) 0.3 %; Dohle Bodies 2+; Eosinophils # (auto) 0.01 K/uL (0-0.50); Immature Granulocytes # (auto) 1.35 K/uL (0.00-0.02); Immature Granulocytes % (auto) 5.2 %; Lymphocytes # (auto) 0.62 K/uL (1.2-3.4); Lymphocytes % (auto) 2.4 %; Monocytes # (auto) 1.19 K/uL (0.24-0.82); Monocytes % (auto) 4.5 %; Neutrophils # (auto) 22.91 K/uL (1.4-6.5); Neutrophils % (auto) 87.6 %; Platelet Estimate Signific. Decreased (Normal)
[2021-10-10] MEDS ORDERED: POTASSIUM CHLORIDE / WTR 20 MEQ/100 ML PLCT IV ONE (06:30)
[2021-10-10] MEDS ORDERED: POTASSIUM PHOSPHATE 15 MMOL in SODIUM CHLORIDE 0.9% 250 ML IV ONE (06:30)
[2021-10-10] MEDS ORDERED: FUROSEMIDE INJ 20 MG/2 ML VIAL IV ONE (07:18)
[2021-10-10] MEDS ORDERED: MAG SULFATE 50% 1GM/2ML VIAL IV ONE (07:22)
[2021-10-10] MEDS ORDERED: MAGNESIUM SULFATE / D5W 1 GM/100 ML BAG IV SCH (07:30)
--- NOTE | 2021-10-10 07:52 | Urology Progress Note ---
Date of Service October 10, 2021 Assessment & Plan (1) Sepsis: (2) Kidney stone on right side: Plan 86-year-old female with a right 4 mm UVJ calculus and sepsis who is status post cystoscopy with right ureteral stent and Adhikari catheter placement on 10/07/2021 Not unexpected for patient to have increased leukocytosis and creatinine following stent placement. Patient reports feeling subjectively improved. Continue to trend labs. Creatinine stable. Continue antibiotics. Follow-up urine cultures and treat accordingly. Currently growing out E. coli in blood and urine cultures. Repeat blood cultures pending. Adhikari catheter can be removed at this time per primary team. If primary team is okay with this, can give Flomax and Toradol for stent discomfort Can have a diet from a urologic perspective Urology to follow peripherally. Will set up outpatient follow up for stone treatment. Admission and Anticipated Discharge Date Admission Date: October 07, 2021 Subjective Afebrile with improving vitals overnight. Off pressors. Central line removed today. WBC relatively stable but still elevated. Cr stable. Patient reports feeling well. Review of Systems Review of Systems: 14 point review of systems negative outside of what is listed above in HPI Physical Exam Physical Exam: General: Alert and oriented, no acute distress HEENT: Normocephalic, mucous membranes moist Pulmonary: Nonlabored respirations Abdomen: Nondistended : Adhikari draining pink tinged urine Extremities: Moves all 4 spontaneously Neuro: No gross deficits Skin: Warm, dry, no rashes noted Results & Data ([facility]) Vital Signs (Past 12 Hours) Vital Signs Temp Pulse Resp BP Pulse Ox O2 Del Method O2 Flow Rate 10/10/21 06:00 129/84 10/10/21 05:59 37.2 C 100 H 21 91 Nasal Cannula 3 10/10/21 05:00 101 H 19 93 10/10/21 05:00 122/88 10/10/21 04:30 91 H 18 97 10/10/21 04:00 94 H 19 139/72 96 10/10/21 03:30 96 H 19 95 10/10/21 03:00 96 H 19 137/74 95 Nasal Cannula 3 10/10/21 02:30 96 H 14 94 10/10/21 02:00 96 H 19 96 10/10/21 02:00 133/81 10/10/21 01:30 95 H 17 96 10/10/21 01:00 96 H 21 119/80 97 10/10/21 00:30 37.2 C 99 H 21 96 10/10/21 00:00 102 H 28 H 95 Nasal Cannula 3 10/10/21 00:00 140/67 10/09/21 23:01 135/86 10/09/21 23:01 37.2 C 105 H 23 96 Nasal Cannula 3 10/09/21 23:00 101 H 22 95 10/09/21 22:00 101 H 23 94 10/09/21 22:00 110/65 10/09/21 23:17 103 H 10/09/21 21:01 122/61 10/09/21 21:01 110 H 23 91 10/09/21 21:00 106 H 26 H 93 10/09/21 20:00 37.5 C 103 H 20 95 Nasal Cannula 3 10/09/21 20:00 119/63 PG Care Time/CCT Total # of Minutes Spent Total Time Spent with Patient: Total time spent is greater than 50% in coordination of care (as documented) at patient's floor/unit and/or counseling patient: Coding Level of Care Code 05096 Subseq Hosp Care Lvl 2 Diagnoses Sepsis A41.9 Kidney stone on right side N20.0
[2021-10-10] MEDS: LANTUS PER UNIT CHARGE SQ SCH ×2 (07:53→20:36)
[2021-10-10] MEDS: INSULIN ASPART PER UNIT SC SCH ×4 (07:53→20:35)
[2021-10-10] MEDS: ACETAMINOPHEN 325 MG TAB PO PRN (07:53)
[2021-10-10] MEDS: ROSUVASTATIN CALCIUM 10 MG TAB PO SCH (07:53)
--- NOTE | 2021-10-10 09:04 | Critical Care Progress Note ---
Date of Service October 10, 2021 Assessment & Plan (1) Sepsis: Plan: Reason Critically Ill: 86-year-old female here with a PMHx significant for CKD 3, thrombocytopenia, nephrolithiasis, DM2, and hypertension, who presented with renal colic secondary to nephrolithiasis (now status post right cystoscopy/stent placement) who was admitted for hypotension/sepsis secondary to E.coli bacteremia (found to be pansensitive). Neuro - [facility] ICU: NEGATIVE Sedation: Dilaudid as needed. Otherwise, no concerns Analgesia: Tylenol 650 every 4 hours as needed Cardiac - * Septic shock: 2/2 pansensitive E.coli bacteremia. Stopped phenylephrine yesterday. Pressures remain improved (MAP-99). * Will be downgraded today to continue IV abx management for bacteremia GI - Tolerating DM2 diet well. IV pantoprazole 40 mg daily. RENAL/LYTES - * Obstructing hydroureteronephrosis on the right. Now status post removal and stent placement. * Magnesium repletion- IV Mg 1g. * Pansensitive E. coli sepsis with urinary source. On IV CTX - * Right obstructing hydroureteronephrosis now s/p removal and stent placement * E.coli bacteremia (urinary source): Pansensitive. On IV Rocephin. ENDO - * Maintain euglycemia HEME - Stable H&H. ID - * Blood, urine cultures growing pansensitive E. coli. * Now on Rocephin. LINES/IV ACCESS - PIVs intact. DVT PROPHYLAXIS - SCDs Thank you for allowing us to be part of this patient's care. Please refer to Dr. Felder's documentation for any further recommendations. (2) Acute hypoxemic respiratory failure: (3) Thrombocytopenia: (4) CKD (chronic kidney disease), stage III: (5) Diabetes mellitus, type II: Admission and Anticipated Discharge Date Admission Date: October 07, 2021 Supervising Physician Co-Signing Physician Notes Dr. Siddiqui was the resident-physician during care of patient. I separately evaluated patient for claudio portions of the history and the exam. I was present during the critical portion of medical decision making, and I discussed the case with the resident. I generally agree with the findings and plan except for any additions/exceptions noted. Patient seen and examined at bedside. No acute distress, no adverse events overnight. Patient is feeding well. Shortness of breath is improved Complains of mild right groin discomfort. Right femoral line has been removed Denies any headache, no nausea or vomiting. Has been off vasopressors since yesterday Constitutional: No acute distress HEENT: EOMI, PERRLA Respiratory system: Good air entry bilaterally, no wheeze, no rhonchi, positive crackles bilateral lower lobes CVS: S1-S2 positive, no murmurs or gallops Abdomen: Soft, nontender, nondistended, positive bowel sounds x4 Extremities: +2 pulses bilaterally radialis/ dorsalis pedis, no cyanosis, +1 pitting edema bilateral lower extremity Neuro: Awake alert oriented x3 Psych: Normal mood and affect G/U: Positive Adhikari --Prophylaxis VTE: IPC GI: Pantoprazole Lines: Right femoral discontinued 10/10/2021 Diet: Cardiac Plan: In/out: -1602, urine output 2576 20 mg of Lasix given to the patient today. Continue with IPC's given her severe thrombocytopenia. Hypokalemia and hypomagnesemia being replaced Patient hemodynamically stable to be downgraded to medical floor ADITI Adhikari prior to downgrade Please note the above document was generated using voice recognition software. It may contain grammatical, syntax or spelling errors.Any formal questions or concerns about the content, text or information contained within the body of t his dictation should be directly addressed to the provider for clarification. Subjective Patient awake in bed this morning. She reports improved breathing today. She denies headache, shortness of breath, chest pain, nausea, or abdominal pain. She does endorse some groin pain (a line removed early this morning). She has no acute complaints or concerns. Review of Systems Review of Systems: All systems reviewed & are unremarkable except as noted in HPI & below Physical Exam Physical Exam: General: Well-appearing, alert, interactive, and in no acute distress. HEENT: Normocephalic, atraumatic. EOM intact. Good conjugate gaze. Nares patent. Moist mucosal membranes. Neck: Supple. No lymphadenopathy. Normal ROM. CV: Regular rate and rhythm. Normal S1 and S2. No murmurs gallops or rubs. Respiratory: Normal respiratory effort. Lungs clear to auscultation bilaterally. No crackles, rhonchi, or wheezes. Abdomen: Soft, nondistended abdomen. No bruits heard on auscultation. No tenderness to deep palpation. Extremities: 2+ dp equal bilaterally.No cyanosis.1+ pitting edema in LE bilaterally. Neuro: Alert and oriented x3. Results & Data Results & Data ([facility]) Vital Signs (Past 12 Hours) Vital Signs Temp Pulse Resp BP Pulse Ox O2 Del Method O2 Flow Rate 10/10/21 06:00 129/84 10/10/21 05:59 37.2 C 100 H 21 91 Nasal Cannula 3 10/10/21 05:00 101 H 19 93 10/10/21 05:00 122/88 10/10/21 04:30 91 H 18 97 10/10/21 04:00 94 H 19 139/72 96 10/10/21 03:30 96 H 19 95 10/10/21 03:00 96 H 19 137/74 95 Nasal Cannula 3 10/10/21 02:30 96 H 14 94 10/10/21 02:00 96 H 19 96 10/10/21 02:00 133/81 10/10/21 01:30 95 H 17 96 10/10/21 01:00 96 H 21 119/80 97 10/10/21 00:30 37.2 C 99 H 21 96 10/10/21 00:00 102 H 28 H 95 Nasal Cannula 3 10/10/21 00:00 140/67 10/09/21 23:01 135/86 10/09/21 23:01 37.2 C 105 H 23 96 Nasal Cannula 3 10/09/21 23:00 101 H 22 95 10/09/21 22:00 101 H 23 94 10/09/21 22:00 110/65 10/09/21 23:17 103 H 10/09/21 21:01 122/61 10/09/21 21:01 110 H 23 91 10/09/21 21:00 106 H 26 H 93 Resident Activity Tracking Resident Involvement: Resident Care Provided Care Provided: Adult Hospital Medicine
--- NOTE | 2021-10-10 09:29 | Hospitalist Progress Note ---
Date of Service October 10, 2021 Assessment & Plan (1) Sepsis: (2) Kidney stone on right side: (3) Colitis: (4) Hydronephrosis concurrent with and due to calculi of kidney and ureter: (5) Hypokalemia: (6) Thrombocytopenia: (7) Diabetes mellitus, type II: (8) HTN (hypertension): (9) CKD (chronic kidney disease), stage III: Plan Per admitting service notes with addendum: This is a 86-year-old female who has a significant past medical history of well- controlled T2DM, HTN, HLD, CKD stage III who presents to ED secondary to abdominal pain x1 year that is worsening. Per CMS criteria patient meets for sepsis in setting of leukopenia, tachycardia Lactic acid 3.6 Source: 4 mm obstructing stone at right UVJ and UTI, likely urosepsis Septic shock secondary to gram-negative bacilli bacteremia and complicated UTI 4 mm obstructing kidney stone at right UVJ with mild to moderate hydronephrosis 10/07: Status post right ureteral stent placement by Dr. Marcus Sage 10/10: Weaned off Levophed and vasopressin Hydrocortisone also being tapered down, continue taper in the next 2 days Echocardiogram EF 45 to 50%, mild global hypokinesis, grade 1 diastolic dysfunction Blood culture and urine culture positive for E coli repeat blood cultures 10/09: pending Continue IV Ceftriaxone Losartan discontinued Acute on chronic systolic congestive heart failure Echocardiogram as above New diagnosis Additional Lasix 20 mg IV given today Will consult cardiology service Hypokalemia Replaced Thrombocytopenia Likely from sepsis Platelet 90 Possibly in setting of sepsis, during prior hospitalization with anaplasmosis she had thrombocytopenia as well and required platelet transfusion Platelet now 40--> 31k-->27k No signs of bleeding Monitor T2DM Well controlled, A1c 5.8 May/2021 A1c 5.7 Lantus/NovoLog per protocol HTN Hold losartan in setting of lower blood pressure DVT prophylaxis: SCDS for now Dispo: Pending May need acute rehab DNR/DNI PCP: Barbi Olmedo Admission and Anticipated Discharge Date Admission Date: October 07, 2021 Subjective Follow-up for septic shock, E. coli bacteremia and UTI, etc. Seen sitting up in bed, watching TV States she feels fine overall Had mild shortness of breath earlier today, resolved now No chest pain, palpitations, dizziness No abdominal pain, nausea or vomiting, fevers or chills No other symptoms Review of Systems Review of Systems: all noted and negative except for above Physical Exam Physical Exam: General- oriented x 3, not in distress, speaks in sentences with no effort or accessory muscle use Eyes- anicteric Neck- no JVD Lungs-mild rales at the bases, no wheezing Heart- normal rate, regular rhythm; no murmurs Abdomen- normal bowel sounds, nondistended, soft, nontender Extremities-mild lower leg edema, no calf tenderness Neuro- alert, oriented x 3; no gross focal neurologic deficits Skin- warm & dry Results & Data Results & Data ([facility]) Vital Signs (Past 12 Hours) Vital Signs Temp Pulse Resp BP Pulse Ox O2 Del Method O2 Flow Rate 10/10/21 09:00 106 H 24 92 10/10/21 08:01 136/103 H 10/10/21 08:00 104 H 24 92 Nasal Cannula 2 10/10/21 07:00 103 H 20 93 10/10/21 07:00 145/93 H 10/10/21 08:00 Nasal Cannula 2 10/10/21 08:00 36.8 C 10/10/21 06:00 129/84 10/10/21 05:59 37.2 C 100 H 21 91 Nasal Cannula 3 10/10/21 05:00 101 H 19 93 10/10/21 05:00 122/88 10/10/21 04:30 91 H 18 97 10/10/21 04:00 94 H 19 139/72 96 10/10/21 03:30 96 H 19 95 10/10/21 03:00 96 H 19 137/74 95 Nasal Cannula 3 10/10/21 02:30 96 H 14 94 10/10/21 02:00 96 H 19 96 10/10/21 02:00 133/81 10/10/21 01:30 95 H 17 96 10/10/21 01:00 96 H 21 119/80 97 10/10/21 00:30 37.2 C 99 H 21 96 10/10/21 00:00 102 H 28 H 95 Nasal Cannula 3 10/10/21 00:00 140/67 10/09/21 23:01 135/86 10/09/21 23:01 37.2 C 105 H 23 96 Nasal Cannula 3 10/09/21 23:00 101 H 22 95 10/09/21 22:00 101 H 23 94 10/09/21 22:00 110/65 10/09/21 23:17 103 H all noted and reviewed including below
--- NOTE | 2021-10-10 10:04 | Billing Data ---
Date of Service October 10, 2021 Coding Level of Care Code 23660 Subseq Hosp Care Lvl 3
[2021-10-10] MEDS: PANTOprazole 40 MG in SYRINGE 0 ML IV SCH (10:11)
[2021-10-10] MEDS: cefTRIAXone SODIUM 2,000 MG in DEXTROSE 5% 50 ML IV SCH (10:35)
[2021-10-10] MEDS ORDERED: PANTOprazole 40 MG TAB PO ONE (11:00)
[2021-10-10] MEDS ORDERED: HYDROCORTISONE SOD 50 MG in SYRINGE 0 ML IV SCH (14:00)
[2021-10-11] MEDS: HYDROCORTISONE SOD 50 MG in SYRINGE 0 ML IV SCH ×3 (02:16→20:21)
[2021-10-11 05:36] LABS: BUN Creatinine Ratio 32.6 (10-20); Calcium 8.1 mg/dl (8.5-10.1); Creatinine Clr Calc Pharmacy 39.9 ml/min; Est GFR (African American) 64.9 ml/min; Phosphorus 2.6 mg/dl (2.5-4.9); Potassium 3.5 mmol/L (3.5-5.1)
[2021-10-11] MEDS ORDERED: POTASSIUM CHLORIDE CRTAB 20 MEQ TABCR PO STA (07:58)
[2021-10-11] MEDS: INSULIN ASPART PER UNIT SC SCH ×4 (08:03→20:20)
[2021-10-11] MEDS: PANTOprazole 40 MG TAB PO SCH (08:20)
[2021-10-11] MEDS: ROSUVASTATIN CALCIUM 10 MG TAB PO SCH (08:20)
[2021-10-11] MEDS: LANTUS PER UNIT CHARGE SQ SCH ×2 (08:23→20:02)
[2021-10-11 09:08] LABS: Hematocrit (blood only) 31.9 % (34.1-44.9); Hemoglobin 10.9 g/dl (12.0-16.0); Mean Corpuscular Hemoglobin 31.8 pg (25.0-34.0); Mean Corpuscular Hgb Conc 34.2 g/dL (32.0-36.0); Nucleated RBC # (auto) 0.04 K/uL (0-0); Nucleated RBC % (auto) 0.2 %; Platelet Count 29 K/uL (130-400); RDW Coefficient of Variation 13.3 % (11.5-14.5); RDW Standard Deviation 45.5 fL (36.4-46.3); Red Blood Count 3.43 M/uL (3.93-5.22); White Blood Count 22.87 K/ul (4.8-10.8)
--- NOTE | 2021-10-11 09:32 | XRay Report ---
XR chest 2V PA/lateral HISTORY: Shortness of breath. COMPARISON: Chest 10/08/2021. FINDINGS: No pneumothorax. The heart remains mildly enlarged. Mild interstitial pulmonary edema has s lightly improved. Small bilateral pleural effusions and bibasilar densities persist. IMPRESSION: 1. Slight improvement in the mild interstitial pulmonary edema. 2. Small bilateral pleural effusions and bibasilar densities persist. ACT 112: Negative or not required by law. Electronically signed by: Yovani Ramirez M.D. 10/11/2021 9:31 AM
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
[2021-10-11] MEDS: cefTRIAXone SODIUM 2,000 MG in DEXTROSE 5% 50 ML IV SCH (12:15)
--- NOTE | 2021-10-11 13:51 | Hospitalist Progress Note ---
Date of Service October 11, 2021 Assessment & Plan (1) Sepsis: (2) Kidney stone on right side: (3) Colitis: (4) Hydronephrosis concurrent with and due to calculi of kidney and ureter: (5) Hypokalemia: (6) Thrombocytopenia: (7) Diabetes mellitus, type II: (8) HTN (hypertension): (9) CKD (chronic kidney disease), stage III: Plan 86-year-old female who has a significant past medical history of well-controlled T2DM, HTN, HLD, CKD stage III presented to ED 10/07 secondary to abdominal pain x1 year that is worsening w/ 1 day h/o feeling extremely chilled/feverish w/ nausea/vomiting/diarrhea. She is being managed for the following: Septic shock secondary to E. coli bacteremia likely secondary to urosepsis Complicated UTI, E. coli Right UVJ obstructing kidney 4 mm stone with mild to moderate hydronephrosis Presentation complicated with septic picture. 10/07 blood culture in 10/07 urine culture with E. coli 10/04 5 repeat blood culture: No growth so far Status post IVF and vasopressors, hydrocortisone being tapered down Status post right ureteral stent placement by Dr. Marcus Sage 10/07/2021 Losartan was held WBC trending down, patient afebrile, will repeat Pro-Ruddy in a.m. Continue with ceftriaxone 10/08, ID consulted. Urology evaluated, alvarez can be removed when able, flomax and toradol for stent comfort. Pt will need OP Uro f/u. Acute hypoxemic respiratory failure likely Concern for acute HFrEF Likely Iatrogenic volume overload Patient does not use oxygen at home Patient's septic shock works complicated with volume overload secondary to IV fluid resuscitation, hence echo obtained 10/08 echo with EF of 45 to 50%, grade 1 diastolic dysfunction, no significant valvular pathology. Patient requiring oxygen around 2.5 L Cardiology evaluated, reduced ejection fraction likely secondary to current acute process, recommendation to repeat echo in the next few months as outpatient. Resume losartan when able, start metoprolol succinate if patient allows. Resume losartan as able when her BP tolerates. Electrolyte abnormalities: Monitor and replete. Thrombocytopenia: Likely secondary to sepsis, platelets somewhat trending up, no signs of bleeding, monitor. Other chronic medical conditions: T2DM, HTN A1c 5.7, continue with sliding scale, resume antihypertensive when able. DVT prophylaxis: SCDs for now, thrombocytopenia Disposition: Likely in next few days, might need rehab DNI/DNR Admission and Anticipated Discharge Date Admission Date: October 07, 2021 Subjective Patient seen and examined at bedside as a follow-up of septic shock secondary to E. coli bacteremia associated with complicated UTI and right UVJ 4 mm obstructing kidney stone. Patient was lying in bed, on 2.5 L nasal cannula oxygen, NAD, no new acute events overnight per RN, reports eating okay, reports occasional dry cough throughout the day, stated good bowel movement yesterday without any blood or blackish stool. Patient denies headache/dizziness/chest pain/palpitations/sore throat/increased shortness of breath/leg swelling/other review of symptoms. Physical Exam Physical Exam: GENERAL: Alert and oriented x3. NAD, on 2.5L NC O2. HEENT: No pallor, no icterus. Pupils equal, round and reactive to light. Oral mucosa moist. NECK: No JVD, no neck masses. HEART: S1 and S2 heard. Regular rate and rhythm. No murmur, no gallop. RESPIRATORY SYSTEM: Normal AP diameter. No accessory muscle use. No wheezing, b/b rales ABDOMEN: Soft, bowel sounds present, nontender, no distention. CENTRAL NERVOUS SYSTEM: No facial droop. Speech is clear. Obeys simple commands. Moves extremities. EXTREMITIES: No edema, no erythema seen. Results & Data Results & Data ([facility]) Vital Signs (Past 12 Hours) Vital Signs Temp Pulse Pulse Resp BP BP Pulse Ox 10/11/21 11:19 37.2 C 94 H 23 109/67 98 10/11/21 07:15 10/11/21 07:15 100 H 10/11/21 07:14 95 H 16 119/73 92 10/11/21 07:14 36.8 C 10/11/21 05:00 73 18 94 10/11/21 04:50 36.7 C 118/75 10/11/21 04:50 90 23 96 O2 Del Method O2 Flow Rate 10/11/21 11:19 Nasal Cannula 2 10/11/21 07:15 Nasal Cannula 2 10/11/21 07:15 10/11/21 07:14 Nasal Cannula 2 10/11/21 07:14 10/11/21 05:00 10/11/21 04:50 10/11/21 04:50
[2021-10-11] MEDS: ICU ELECTROLYTE REPLACEMENT PROTOCOL SCH (16:53)
[2021-10-12 06:41] LABS: Calcium 8.1 mg/dl (8.5-10.1); Creatinine Clr Calc Pharmacy 45.1 ml/min; Est GFR (African American) 74.6 ml/min; Est GFR (Non-African American) 64.3 ml/min; Phosphorus 3.6 mg/dl (2.5-4.9); Potassium 3.6 mmol/L (3.5-5.1)
[2021-10-12 07:06] LABS: Hematocrit (blood only) 33.8 % (34.1-44.9); Hemoglobin 11.6 g/dl (12.0-16.0); Mean Corpuscular Hgb Conc 34.3 g/dL (32.0-36.0); Mean Corpuscular Volume 93.4 fL (80.0-100.0); Nucleated RBC # (auto) 0.06 K/uL (0-0); Nucleated RBC % (auto) 0.3 %; Platelet Count 37 K/uL (130-400); Platelet Estimate Decreased (Normal); RDW Coefficient of Variation 13.2 % (11.5-14.5); RDW Standard Deviation 45.6 fL (36.4-46.3); Red Blood Count 3.62 M/uL (3.93-5.22); White Blood Count 21.75 K/ul (4.8-10.8)
[2021-10-12] MEDS: HYDROCORTISONE SOD 50 MG in SYRINGE 0 ML IV SCH (07:41)
[2021-10-12] MEDS: ROSUVASTATIN CALCIUM 10 MG TAB PO SCH (07:41)
[2021-10-12] MEDS: PANTOprazole 40 MG TAB PO SCH (07:41)
[2021-10-12] MEDS: ACETAMINOPHEN 325 MG TAB PO PRN (07:41)
[2021-10-12] MEDS: LANTUS PER UNIT CHARGE SQ SCH ×2 (08:28→21:59)
[2021-10-12] MEDS: INSULIN ASPART PER UNIT SC SCH ×4 (08:28→21:58)
[2021-10-12] MEDS: LOSARTAN POTASSIUM 25 MG TAB PO SCH (08:33)
--- NOTE | 2021-10-12 09:18 | Cardiology Progress Note ---
Date of Service October 12, 2021 Assessment & Plan (1) Acute hypoxemic respiratory failure: (2) Septic shock: (3) Hypokalemia: (4) Hydronephrosis concurrent with and due to calculi of kidney and ureter: (5) Anaplasmosis: (6) Thrombocytopenia: (7) YOGI (acute kidney injury): (8) Kidney stone on right side: (9) CKD (chronic kidney disease), stage III: (10) Diabetes mellitus, type II: (11) Cardiomyopathy: Plan Given the clinical context I believe her reduced LV systolic function was most likely due to the septic shock she was experiencing at that time. She denies any cardiac complaints and is currently improving clinically. No history of cardiac disease. I would recommend continue to treat for her presenting complaints and repeat an echocardiogram as an outpatient in the next few months. No further cardiac testing or intervention necessary at this time. She was on losartan as an outpatient which should be restarted once her BP tolerates. Would also recommend evidence-based beta-radha with metoprolol succinate to be initiated as pressure allows. Admission and Anticipated Discharge Date Admission Date: October 07, 2021 Subjective Patient seen and examined, chart reviewed. States that she is feeling rather well today. Still weak and fatigued but denies chest pain, shortness of breath or palpitations. Review of Systems Review of Systems: All systems reviewed & are unremarkable except as noted in HPI & below Physical Exam Physical Exam: General: Awake, alert and oriented x 3. No acute distress. HEENT: Normocephalic, atraumatic. Pupils equal, round and reactive to light and accommodation. Extraocular muscles are intact. Anicteric sclera. Moist mucous membranes. Neck: No JVD. No bruit. Cardiovascular: Regular. Positive S-4. Normal S-1 and S-2. No S-3. No murmurs or rubs. Pulmonary: Clear to auscultation B/L. No rales, rhonchi or wheezing Abdomen: Bowel sounds x 4, soft. No rebound, guarding or tenderness. No organomegaly. Extremities: No clubbing, cyanosis or edema. +2 pedal pulses bilaterally. Skin: Warm and dry. Results & Data ([facility]) Vital Signs (Past 12 Hours) Vital Signs Temp Pulse Pulse Resp BP Pulse Ox O2 Del Method 10/12/21 08:00 98 H 10/12/21 08:00 105 H 21 10/12/21 07:00 88 18 10/12/21 06:00 87 13 10/12/21 07:00 36.7 C 99 H 16 136/73 95 Nasal Cannula 10/12/21 04:00 36.7 C 93 H 22 139/87 94 Nasal Cannula 10/11/21 23:20 84 10/11/21 22:48 36.7 C 86 18 118/82 97 Nasal Cannula O2 Flow Rate 10/12/21 08:00 10/12/21 08:00 10/12/21 07:00 10/12/21 06:00 10/12/21 07:00 2.5 10/12/21 04:00 2 10/11/21 23:20 10/11/21 22:48 2
[2021-10-12] MEDS: cefTRIAXone SODIUM 2,000 MG in DEXTROSE 5% 50 ML IV SCH (12:11)
--- NOTE | 2021-10-12 18:58 | Hospitalist Progress Note ---
Date of Service October 12, 2021 Assessment & Plan (1) Sepsis: (2) Kidney stone on right side: (3) Colitis: (4) Hydronephrosis concurrent with and due to calculi of kidney and ureter: (5) Hypokalemia: (6) Thrombocytopenia: (7) Diabetes mellitus, type II: (8) HTN (hypertension): (9) CKD (chronic kidney disease), stage III: Plan 86-year-old female who has a significant past medical history of well-controlled T2DM, HTN, HLD, CKD stage III presented to ED 10/07 secondary to abdominal pain x1 year that is worsening w/ 1 day h/o feeling extremely chilled/feverish w/ nausea/vomiting/diarrhea. She is being managed for the following: Septic shock secondary to E. coli bacteremia likely secondary to urosepsis Complicated UTI, E. coli Right UVJ obstructing kidney 4 mm stone with mild to moderate hydronephrosis Presentation complicated with septic picture. 10/07 blood culture and 10/07 urine culture with E. coli 10/09 repeat blood culture: No growth so far Status post IVF, vasopressors and hydrocortisone early in admission Status post right ureteral stent placement by Dr. Marcus Sage 10/07/2021 Losartan resumed 10/12 WBC and procal trending down, patient afebrile, the sustained elevation in WBC likely 2/2 hydrocortisone. Continue with ceftriaxone 10/08, ID consulted. Urology evaluated, alvarez can be removed when able, flomax and toradol for stent comfort. Pt will need OP Uro f/u. Acute hypoxemic respiratory failure likely Concern for acute HFrEF Likely Iatrogenic volume overload Patient does not use oxygen at home Patient's septic shock was complicated with volume overload secondary to IV fluid resuscitation, hence echo obtained 10/08 echo with EF of 45 to 50%, grade 1 diastolic dysfunction, no significant valvular pathology. Patient requiring oxygen around 2 L, not on home O2 per Pt. Cardiology evaluated, reduced ejection fraction likely secondary to current acute process, recommendation to repeat echo in the next few months as outpatient. Resume losartan when able, start metoprolol succinate if patient allows. Start a small dose of metoprolol from tomorrow. Electrolyte abnormalities: Monitor and replete. Thrombocytopenia: Likely secondary to sepsis, platelets somewhat trending up, no signs of bleeding, monitor. Other chronic medical conditions: T2DM, HTN A1c 5.7, continue with sliding scale, resume antihypertensive when able. DVT prophylaxis: SCDs for now, thrombocytopenia. Ambulate patient frequently. Disposition: Likely in next few days, pending ID amie. DNI/DNR Admission and Anticipated Discharge Date Admission Date: October 07, 2021 Subjective Patient seen and examined at bedside as a follow-up of septic shock secondary to E. coli bacteremia associated with complicated UTI and right UVJ 4 mm obstructing kidney stone. Patient was lying in bed, on 2 L nasal cannula oxygen, NAD, no new acute events overnight per Pt, reports eating okay, reports occasional dry cough throughout the day, reports moving bowels ok, feels tired and weak. Patient denies headache/dizziness/chest pain/palpitations/sore throat/increased shortness of breath/leg swelling/other review of symptoms. Physical Exam Physical Exam: GENERAL: Alert and oriented x3. NAD, on 2L NC O2. HEENT: No pallor, no icterus. Pupils equal, round and reactive to light. Oral mucosa moist. NECK: No JVD, no neck masses. HEART: S1 and S2 heard. Regular rate and rhythm. No murmur, no gallop. RESPIRATORY SYSTEM: Normal AP diameter. No accessory muscle use. No wheezing, b/b rales ABDOMEN: Soft, bowel sounds present, nontender, no distention. CENTRAL NERVOUS SYSTEM: No facial droop. Speech is clear. Obeys simple commands. Moves extremities. EXTREMITIES: No edema, no erythema seen. Results & Data Results & Data ([facility]) Vital Signs (Past 12 Hours) Vital Signs Temp Pulse Pulse Resp BP Pulse Ox O2 Del Method 10/12/21 16:00 81 10/12/21 11:31 37 C 109/84 10/12/21 08:10 Nasal Cannula 10/12/21 08:00 98 H 10/12/21 08:00 105 H 21 10/12/21 07:00 88 18 10/12/21 07:00 36.7 C 99 H 16 136/73 95 Nasal Cannula O2 Flow Rate 10/12/21 16:00 10/12/21 11:31 10/12/21 08:10 2.5 10/12/21 08:00 10/12/21 08:00 10/12/21 07:00 10/12/21 07:00 2.5
[2021-10-13] MEDS ORDERED: POTASSIUM CHLORIDE CRTAB 20 MEQ TABCR PO STA (03:04)
[2021-10-13] MEDS ORDERED: METOPROLOL TARTRATE 1 MG/ML VIAL IV STA (03:04)
--- NOTE | 2021-10-13 03:08 | Communication Note ---
Date of Service: October 13, 2021 Patient noted to be in rapid A. fib on the monitor as per solderer rate 130s to 140s SBP 120s. AP New onset A. fib Titrate home beta-radha Check electrolytes now
[2021-10-13 04:05] LABS: Hematocrit (blood only) 36.2 % (34.1-44.9); Hemoglobin 12.2 g/dl (12.0-16.0); Mean Corpuscular Hemoglobin 32.1 pg (25.0-34.0); Mean Corpuscular Hgb Conc 33.7 g/dL (32.0-36.0); Mean Corpuscular Volume 95.3 fL (80.0-100.0); Nucleated RBC # (auto) 0.07 K/uL (0-0); Nucleated RBC % (auto) 0.3 %; Partial Thromboplastin Ratio 0.7; Partial Thromboplastin Time 20.5 Seconds (21.0-31.0); Platelet Count 48 K/uL (130-400); RDW Coefficient of Variation 13.5 % (11.5-14.5); RDW Standard Deviation 47.4 fL (36.4-46.3); White Blood Count 23.69 K/ul (4.8-10.8)
[2021-10-13 04:09] LABS: BUN Creatinine Ratio 35.1 (10-20); Est GFR (African American) 80.5 ml/min; Est GFR (Non-African American) 69.4 ml/min; Phosphorus 2.8 mg/dl (2.5-4.9); Potassium 3.2 mmol/L (3.5-5.1)
[2021-10-13] MEDS: METOPROLOL SUCC 25MG EXT REL TAB PO SCH (04:12)
[2021-10-13 04:56] LABS: ALC (manual) 2.84 K/uL (1.2-3.4); ANC (manual) 17.29 K/uL (1.4-6.5); Lymphocytes # (manual) 2.84 K/uL (1.2-3.4); Lymphocytes % (manual) 12 %; Metamyelocytes # (manual) 0.71 K/uL (0-0); Metamyelocytes % (manual) 3 %; Monocytes # (manual) 2.37 K/uL (0.24-0.82); Monocytes % (manual) 10 %; Myelocytes # (manual) 0.47 K/uL (0-0); Myelocytes % (manual) 2 %; Neutrophils # (manual) 17.29 K/uL (1.4-6.5); Neutrophils % (manual) 73 %
[2021-10-13] MEDS ORDERED: POTASSIUM CHLORIDE CRTAB 20 MEQ TABCR PO ONE (05:30)
[2021-10-13] MEDS ORDERED: METOPROLOL SUCC 25MG EXT REL TAB PO SCH (09:00)
[2021-10-13] MEDS: INSULIN ASPART PER UNIT SC SCH ×4 (09:12→21:17)
[2021-10-13] MEDS: LANTUS PER UNIT CHARGE SQ SCH ×2 (09:13→21:18)
[2021-10-13] MEDS: LOSARTAN POTASSIUM 25 MG TAB PO SCH (09:15)
[2021-10-13] MEDS: ROSUVASTATIN CALCIUM 10 MG TAB PO SCH (09:15)
[2021-10-13] MEDS: PANTOprazole 40 MG TAB PO SCH (09:15)
[2021-10-13] MEDS: VITAMIN B COMPLEX TAB PO SCH ×2 (09:25→21:18)
[2021-10-13] MEDS ORDERED: FUROSEMIDE INJ 20 MG/2 ML VIAL IV ONE (12:30)
[2021-10-13] MEDS: cefTRIAXone SODIUM 2,000 MG in DEXTROSE 5% 50 ML IV SCH (13:18)
[2021-10-13] MEDS: FIRST - Mouthwash BLM 119 ML PO SCH ×2 (13:19→19:41)
--- NOTE | 2021-10-13 16:20 | Ultrasound Report ---
BILATERAL LOWER EXTREMITY VENOUS DOPPLER CLINICAL HISTORY: Bilateral lower extremity pain. Evaluate for deep venous thrombus. COMPARISON STUDY: No previous studies for comparison. TECHNIQUE: Sonography of the deep venous system of the bilateral lower extremities was performed. Co mpression and augmentation were evaluated. FINDINGS: The bilateral common femoral, superficial femoral and popliteal veins were compressible. A ugmentation was normal. Flow was shown within the deep calf vessels. IMPRESSION: No evidence of deep venous thrombus within the bilateral lower extremities. ACT 112: Negative or not required by law. Electronically signed by: Patricio Ivey M.D. 10/13/2021 4:19 PM
--- NOTE | 2021-10-13 17:29 | Hospitalist Progress Note ---
Date of Service October 13, 2021 Assessment & Plan (1) Sepsis: (2) Kidney stone on right side: (3) Colitis: (4) Hydronephrosis concurrent with and due to calculi of kidney and ureter: (5) Hypokalemia: (6) Thrombocytopenia: (7) Diabetes mellitus, type II: (8) HTN (hypertension): (9) CKD (chronic kidney disease), stage III: Plan 86-year-old female who has a significant past medical history of well-controlled T2DM, HTN, HLD, CKD stage III presented to ED 10/07 secondary to abdominal pain x1 year that is worsening w/ 1 day h/o feeling extremely chilled/feverish w/ nausea/vomiting/diarrhea. She is being managed for the following: Septic shock secondary to E. coli bacteremia likely secondary to urosepsis Complicated UTI, E. coli Right UVJ obstructing kidney 4 mm stone with mild to moderate hydronephrosis Presentation complicated with septic picture. 10/07 blood culture and 10/07 urine culture with E. coli 10/09 repeat blood culture: No growth so far Status post IVF, vasopressors and hydrocortisone early in admission Status post right ureteral stent placement by Dr. Marcus Sage 10/07/2021 WBC and procal trending down, patient afebrile, the sustained elevation in WBC likely 2/2 hydrocortisone. Continue with ceftriaxone 10/08, ID consulted. Urology evaluated, alvarez can be removed when able, flomax and toradol for stent comfort. Pt will need OP Uro f/u. Acute hypoxemic respiratory failure Concern for acute HFrEF Likely Iatrogenic volume overload Patient does not use oxygen at home Patient's septic shock was complicated with volume overload secondary to IV fluid resuscitation, hence echo obtained 10/08 echo with EF of 45 to 50%, grade 1 diastolic dysfunction, no significant valvular pathology. Patient requiring oxygen around 2 L, not on home O2 per Pt. Cardiology evaluated, reduced ejection fraction likely secondary to current acute process, recommendation to repeat echo in the next few months as outpatient. Resume losartan when able, start metoprolol succinate if patient allows. Lasix prn as tolerated for BLE fluid build up. Afib RVR: new event over night of 10/12-10/13. TSH nl, pt on metoprolol 25 mg daily, rate controlled. Likely angular cheilitis: lips and tongue erythema, pt w/ swallowing difficulty. clotrim torches, magic mouth wash. Electrolyte abnormalities: Monitor and replete. Thrombocytopenia: Likely secondary to sepsis, platelets somewhat trending up, no signs of bleeding, monitor. Other chronic medical conditions: T2DM, HTN A1c 5.7, continue with sliding scale, resume antihypertensive when able. DVT prophylaxis: Platelets improving, hep sq, risk of dvt high d/t poor mobility. Continue to monitor. Disposition: Likely in next few days, pending ID eval. DNI/DNR Admission and Anticipated Discharge Date Admission Date: October 07, 2021 Subjective Patient seen and examined at bedside as a follow-up of septic shock secondary to E. coli bacteremia associated with complicated UTI and right UVJ 4 mm obstructing kidney stone. Patient was lying in bed, on 2 L nasal cannula oxygen, NAD, patient's daughter at bedside - updated, patient had A. fib with RVR overnight, currently heart rate controlled, reports eating okay and moving bowels okay, reports occasional dry cough throughout the day, reports oral soreness along the lips and with swallowing food, feels little bit better with regard to strength. Patient denies headache/dizziness/chest pain/palpitations/sore throat/increased shortness of breath/leg swelling/other review of symptoms. Physical Exam 2 Physical Exam: GENERAL: Alert and oriented x3. NAD, on 2L NC O2. HEENT: No pallor, no icterus. Pupils equal, round and reactive to light. Oral mucosa moist. NECK: No JVD, no neck masses. Oral: erythema, maceration, scaling of lips and angles, erythema of tongue. HEART: S1 and S2 heard. Regular rate and rhythm. No murmur, no gallop. RESPIRATORY SYSTEM: Normal AP diameter. No accessory muscle use. No wheezing, b/b rales ABDOMEN: Soft, bowel sounds present, nontender, no distention. CENTRAL NERVOUS SYSTEM: No facial droop. Speech is clear. Obeys simple commands. Moves extremities. EXTREMITIES: 1-2 + BLE edema, no erythema seen. Results & Data Results & Data ([facility]) Vital Signs (Past 12 Hours) Vital Signs Pulse Resp BP Pulse Ox 10/13/21 15:00 89 29 H 87 L 10/13/21 14:00 85 26 H 94 10/13/21 13:00 87 23 91 10/13/21 12:40 89 22 92 10/13/21 12:40 113/58 L 10/13/21 12:00 90 19 10/13/21 11:00 88 24 10/13/21 10:00 77 15 10/13/21 09:00 92 H 27 H 10/13/21 08:49 94 H 24 10/13/21 08:49 107/65 10/13/21 08:00 88 17 10/13/21 07:00 115 H 20 10/13/21 07:00 84
[2021-10-13] MEDS: CLOTRIMAZOLE 10 MG TROCHE BUCCAL SCH (19:41)
[2021-10-13] MEDS: HEPARIN SOD 5,000 UNIT/0.5 ML VIAL SQ SCH (21:12)
--- NOTE | 2021-10-13 21:13 | Electrocardiogram Report ---
Test Reason : Blood Pressure : / mmHG Vent. Rate : 139 BPM Atrial Rate : 192 BPM P-R Int : 000 ms QRS Dur : 072 ms QT Int : 312 ms P-R-T Axes : 000 015 157 degrees QTc Int : 474 ms Poor data quality, interpretation may be adversely affected Atrial fibrillation with rapid ventricular response Anterolateral infarct (cited on or before 13-OCT-2021) Abnormal ECG When compared with ECG of 07-OCT-2021 13:44, Atrial fibrillation has replaced Sinus rhythm QRS axis Shifted right Minimal criteria for Inferior infarct are no longer Present Non-specific change in ST segment in Anterior leads Nonspecific T wave abnormality now evident in Inferior leads Confirmed by Butch Grant ([id number]) on 10/13/2021 9:12:54 PM Referred By: REFERRED SELF Confirmed By:Butch Grant
--- NOTE | 2021-10-13 21:35 | Electrocardiogram Report ---
Test Reason : Blood Pressure : / mmHG Vent. Rate : 086 BPM Atrial Rate : 086 BPM P-R Int : 150 ms QRS Dur : 078 ms QT Int : 408 ms P-R-T Axes : 034 -24 190 degrees QTc Int : 488 ms Normal sinus rhythm Anterolateral infarct (cited on or before 13-OCT-2021) Abnormal ECG When compared with ECG of 13-OCT-2021 03:13, (unconfirmed) Sinus rhythm has replaced Atrial fibrillation Vent. rate has decreased BY 53 BPM Confirmed by Butch Grant ([id number]) on 10/13/2021 9:35:16 PM Referred By: REFERRED SELF Confirmed By:Butch Grant
[2021-10-14] MEDS: CLOTRIMAZOLE 10 MG TROCHE BUCCAL SCH ×5 (00:01→21:05)
[2021-10-14] MEDS: FIRST - Mouthwash BLM 119 ML PO SCH ×4 (01:40→21:04)
[2021-10-14 05:34] LABS: Hematocrit (blood only) 34.5 % (34.1-44.9); Hemoglobin 11.7 g/dl (12.0-16.0); Mean Corpuscular Hemoglobin 32.1 pg (25.0-34.0); Mean Corpuscular Hgb Conc 33.9 g/dL (32.0-36.0); Mean Corpuscular Volume 94.5 fL (80.0-100.0); Nucleated RBC # (auto) 0.02 K/uL (0-0); Nucleated RBC % (auto) 0.1 %; RDW Coefficient of Variation 13.2 % (11.5-14.5); RDW Standard Deviation 45.7 fL (36.4-46.3); Red Blood Count 3.65 M/uL (3.93-5.22)
[2021-10-14 05:51] LABS: Mean Platelet Volume 13.3 fL (9.4-12.3); Platelet Count 57 K/uL (130-400)
[2021-10-14 05:54] LABS: BUN Creatinine Ratio 30.8 (10-20); Creatinine Clr Calc Pharmacy 57.2 ml/min; Est GFR (African American) 92.5 ml/min; Est GFR (Non-African American) 79.8 ml/min; Magnesium 1.9 mg/dl (1.7-2.4); Phosphorus 3.5 mg/dl (2.5-4.9)
[2021-10-14] MEDS: LANTUS PER UNIT CHARGE SQ SCH ×2 (08:15→21:17)
[2021-10-14] MEDS: INSULIN ASPART PER UNIT SC SCH ×4 (08:26→21:16)
[2021-10-14] MEDS: POTASSIUM CHLORIDE CRTAB 20 MEQ TABCR PO SCH ×2 (08:29→09:54)
[2021-10-14] MEDS: TAMSULOSIN HCL 0.4 MG CAP PO SCH (08:29)
[2021-10-14] MEDS: HEPARIN SOD 5,000 UNIT/0.5 ML VIAL SQ SCH ×2 (08:29→21:06)
[2021-10-14] MEDS: VITAMIN B COMPLEX TAB PO SCH ×2 (08:30→21:05)
[2021-10-14] MEDS: PANTOprazole 40 MG TAB PO SCH (08:30)
[2021-10-14] MEDS: LOSARTAN POTASSIUM 25 MG TAB PO SCH (08:30)
[2021-10-14] MEDS: METOPROLOL SUCC 25MG EXT REL TAB PO SCH (08:30)
[2021-10-14] MEDS: ROSUVASTATIN CALCIUM 10 MG TAB PO SCH (08:30)
[2021-10-14] MEDS: cefTRIAXone SODIUM 2,000 MG in DEXTROSE 5% 50 ML IV SCH (12:04)
--- NOTE | 2021-10-14 12:31 | Cardiology Progress Note ---
Date of Service October 14, 2021 Assessment & Plan (1) Acute hypoxemic respiratory failure: (2) Septic shock: (3) Hypokalemia: (4) Hydronephrosis concurrent with and due to calculi of kidney and ureter: (5) Anaplasmosis: (6) Thrombocytopenia: (7) YOGI (acute kidney injury): (8) Kidney stone on right side: (9) CKD (chronic kidney disease), stage III: (10) Diabetes mellitus, type II: (11) Cardiomyopathy: Plan Clinically stable. Nothing additional to add at this time. No additional cardiac testing indicated. When she is clinically ready, she can be discharged to rehab per the hospitalist. Admission and Anticipated Discharge Date Admission Date: October 07, 2021 Subjective The patient is alert. Her granddaughter is visiting with her. Her biggest complaint is that she has sores in her mouth from thrush. She is receiving treatment. Review of Systems Review of Systems: Review of Systems: See HPI for pertinent positives. All other 10 point review of systems are negative. Physical Exam Physical Exam: General: no acute distress and stated age Head: normocephalic, no masses, lesions, tenderness or abnormalities Eyes: conjunctiva are pink and non-injected, sclera clear Neck: supple, no adenopathy, no bruits, normal jugular venous pulse, no hepatojugular reflux Chest: normal shape and normal respiratory effort Lungs: clear to auscultation and percussion Cardiac Exam: - regular rate & rhythm, no murmurs gallops or rubs - normal S1, normal S2 Pulses: 2(+) throughout Abdomen: abdomen soft, non-tender, no abnormal masses and no hepatosplenomegaly Musculoskeletal: no gait disturbance, no joint inflammation, no deforming arthritis Extremities: no edema and no cyanosis Neuro: grossly normal exam Results & Data ([facility]) Vital Signs (Past 12 Hours) Vital Signs Temp Pulse Pulse Resp BP Pulse Ox O2 Del Method 10/14/21 12:14 36.8 C 89 22 107/60 92 Room Air 10/14/21 08:00 Room Air 10/14/21 08:00 86 10/14/21 07:26 36.8 C 98 H 24 136/67 96 Room Air 10/14/21 04:00 36.9 C 102 H 16 147/86 H 94 Room Air Laboratory Results Laboratory Results - last 24 hr 10/13/21 10/13/21 10/14/21 16:28 21:15 05:11 WBC 20.50 H RBC 3.65 L Hgb 11.7 L Hct 34.5 MCV 94.5 MCH 32.1 MCHC 33.9 RDW Std Deviation 45.7 RDW Coeff of Taj 13.2 Plt Count 57 L MPV 13.3 H Absolute Nucleated RBC 0.02 H Nucleated RBC % (auto) 0.1 Sodium Potassium Chloride Carbon Dioxide Anion Gap BUN Creatinine Est Cr Clr Drug Dosing Est GFR ( Amer) Est GFR (Non-Af Amer) BUN/Creatinine Ratio Glucose POC Glucose 98 117 H Calcium Phosphorus Magnesium Procalcitonin 10/14/21 10/14/21 10/14/21 05:11 07:27 08:12 WBC RBC Hgb Hct MCV MCH MCHC RDW Std Deviation RDW Coeff of Taj Plt Count MPV Absolute Nucleated RBC Nucleated RBC % (auto) Sodium 140 Potassium 3.0 L Chloride 103 Carbon Dioxide 30 Anion Gap 7 BUN 20 Creatinine 0.65 Est Cr Clr Drug Dosing 57.2 Est GFR ( Amer) 92.5 Est GFR (Non-Af Amer) 79.8 BUN/Creatinine Ratio 30.8 H Glucose 106 H POC Glucose 100 H Calcium 8.0 L Phosphorus 3.5 Magnesium 1.9 Procalcitonin 1.44 H 10/14/21 11:25 WBC RBC Hgb Hct MCV MCH MCHC RDW Std Deviation RDW Coeff of Taj Plt Count MPV Absolute Nucleated RBC Nucleated RBC % (auto) Sodium Potassium Chloride Carbon Dioxide Anion Gap BUN Creatinine Est Cr Clr Drug Dosing Est GFR ( Amer) Est GFR (Non-Af Amer) BUN/Creatinine Ratio Glucose POC Glucose 105 H Calcium Phosphorus Magnesium Procalcitonin Medications Administered Current Inpatient Medications Acetaminophen (Acetaminophen 325 Mg Tab) 650 mg PO Q4H PRN PRN Reason: Pain or Fever Stop: 11/06/21 19:56 Last Admin: 10/12/21 07:41 Dose: 650 mg Al Hydrox/Mg Hydrox/Simethicone (Aluminum/Magnesium Susp 30 Ml Udc) 15 ml PO Q4H PRN PRN Reason: Dyspepsia Stop: 11/06/21 19:56 Aspirin (Aspirin 81 Mg Ectab) 81 mg PO MoWeFr@0900 DERIK Stop: 11/15/21 08:59 Clotrimazole (Clotrimazole 10 Mg Jemima) 10 mg BUCCAL [id number] DERIK Stop: 10/27/21 18:59 Last Admin: 10/14/21 12:02 Dose: 10 mg Dextrose (Dextrose 50% 50 Ml Syringe) 25 - 50 ml IV UD PRN; Protocol PRN Reason: Hypoglycemia Protocol Stop: 11/06/21 19:56 Glucagon (Glucagon For Inj 1 Mg Vial) 1 mg SQ UD PRN; Protocol PRN Reason: Hypoglycemia Protocol Stop: 11/06/21 19:56 Glucose (Glucose 40% Gel 15 Gm Tube) 15 - 30 gm PO UD PRN; Protocol PRN Reason: Hypoglycemia Protocol Stop: 11/06/21 19:56 Glucose (Glucose 10 Tab/Tube) 4 - 8 tab PO UD PRN; Protocol PRN Reason: Hypoglycemia Treatment Stop: 11/06/21 19:56 Heparin Sodium (Porcine) (Heparin Sod 5,000 Unit/0.5 Ml Vial) 5,000 units SQ Q12 DERIK Stop: 11/12/21 20:59 Last Admin: 10/14/21 08:29 Dose: 5,000 units Hydromorphone HCl (Hydromorphone Inj 0.5 Mg/0.5 Ml Syr) 0.25 mg IV Q6H PRN PRN Reason: Pain Stop: 10/21/21 16:21 Last Admin: 10/08/21 21:57 Dose: 0.25 mg Ceftriaxone Sodium 2,000 mg/ (Dextrose) 70 mls @ 140 mls/hr IV DAILY@1200 DERIK; Protocol Stop: 10/22/21 12:29 Last Admin: 10/14/21 12:04 Dose: 140 mls/hr Insulin Aspart (Insulin Aspart Per Unit) 0 units SC ACHS DERIK Stop: 11/06/21 19:56 Last Admin: 10/14/21 12:06 Dose: Not Given Insulin Glargine (Lantus Per Unit Charge) 0 - 7 units SQ BID DERIK Stop: 11/06/21 20:59 Last Admin: 10/14/21 08:15 Dose: Not Given Losartan Potassium (Losartan Potassium 25 Mg Tab) 25 mg PO DAILY DERIK Stop: 11/11/21 08:59 Last Admin: 10/14/21 08:30 Dose: 25 mg Magnesium Hydroxide (Magnesium Hydroxide Susp 30 Ml Udc) 30 ml PO Q12H PRN PRN Reason: Constipation Stop: 11/06/21 19:56 Metoprolol Succinate (Metoprolol Succ 25mg Ext Rel Tab) 25 mg PO QAM [facility] Stop: 11/12/21 03:14 Last Admin: 10/14/21 08:30 Dose: 25 mg Miscellaneous (Carbohydrates For Hypoglycemia ) 15 - 30 gm PO UD PRN PRN Reason: Hypoglycemia Protocol Stop: 11/06/21 19:56 Multi-Ingredient Mouthwash/Gargle (First - Mouthwash Blm 119 Ml) 5 ml PO Q6H DERIK Stop: 11/12/21 12:59 Last Admin: 10/14/21 12:03 Dose: 5 ml Ondansetron HCl (Ondansetron Inj 2 Mg/Ml 2 Ml Vial) 4 mg IV Q6H PRN PRN Reason: Nausea Stop: 11/06/21 19:56 Pantoprazole Sodium (Pantoprazole 40 Mg Tab) 40 mg PO DAILY DERIK Stop: 11/10/21 08:59 Last Admin: 10/14/21 08:30 Dose: 40 mg Polyethylene Glycol (Polyethylene (Miralax) 17 Gm Pack) 17 gm PO DAILY PRN PRN Reason: Constipation Stop: 11/06/21 19:56 Rosuvastatin Calcium (Rosuvastatin Calcium 10 Mg Tab) 10 mg PO DAILY [facility] Stop: 11/07/21 08:59 Last Admin: 10/14/21 08:30 Dose: 10 mg Tamsulosin HCl (Tamsulosin Hcl 0.4 Mg Cap) 0.4 mg PO QAM [facility] Stop: 11/13/21 08:59 Last Admin: 10/14/21 08:29 Dose: 0.4 mg Vitamin B Complex (Vitamin B Complex Tab) 1 tab PO BID DERIK Stop: 10/20/21 08:59 Last Admin: 10/14/21 08:30 Dose: 1 tab
[2021-10-14] MEDS ORDERED: FUROSEMIDE INJ 20 MG/2 ML VIAL IV ONE (12:33)
--- NOTE | 2021-10-14 15:24 | Hospitalist Progress Note ---
Date of Service October 14, 2021 Assessment & Plan (1) Sepsis: (2) Kidney stone on right side: (3) Colitis: (4) Hydronephrosis concurrent with and due to calculi of kidney and ureter: (5) Hypokalemia: (6) Thrombocytopenia: (7) Diabetes mellitus, type II: (8) HTN (hypertension): (9) CKD (chronic kidney disease), stage III: Plan 86-year-old female who has a significant past medical history of well-controlled T2DM, HTN, HLD, CKD stage III presented to ED 10/07 secondary to abdominal pain x1 year that is worsening w/ 1 day h/o feeling extremely chilled/feverish w/ nausea/vomiting/diarrhea. She is being managed for the following: Septic shock secondary to E. coli bacteremia likely secondary to urosepsis Complicated UTI, E. coli Right UVJ obstructing kidney 4 mm stone with mild to moderate hydronephrosis Presentation complicated with septic picture. 10/07 blood culture and 10/07 urine culture with E. coli 10/09 repeat blood culture: No growth so far Status post IVF, vasopressors and hydrocortisone early in admission Status post right ureteral stent placement by Dr. Marcus Sage 10/07/2021 WBC and procal trending down, patient afebrile, the sustained elevation in WBC likely 2/2 hydrocortisone. Continue with ceftriaxone 10/08, ID consulted. Urology evaluated, alvarez can be removed when able, flomax and toradol for stent comfort. Pt will need OP Uro f/u. Acute hypoxemic respiratory failure Concern for acute HFrEF Likely Iatrogenic volume overload Patient does not use oxygen at home Patient's septic shock was complicated with volume overload secondary to IV fluid resuscitation, hence echo obtained 10/08 echo with EF of 45 to 50%, grade 1 diastolic dysfunction, no significant valvular pathology. Patient requiring oxygen around 2 L, not on home O2 per Pt. Cardiology evaluated, reduced ejection fraction likely secondary to current acute process, recommendation to repeat echo in the next few months as outpatient. Lasix prn as tolerated for BLE fluid build up. Afib RVR: new event over night of 10/12-10/13. TSH nl, pt on metoprolol 25 mg daily, on sinus rthythm. d/w cardio. Likely angular cheilitis/thrush: lips and tongue erythema, pt w/ swallowing difficulty. clotrim torches, magic mouth wash. Electrolyte abnormalities: Monitor and replete. Thrombocytopenia: Likely secondary to sepsis, platelets trending up, no signs of bleeding, monitor. Other chronic medical conditions: T2DM, HTN A1c 5.7, continue with sliding scale, resume antihypertensive when able. DVT prophylaxis: Platelets improving, hep sq, risk of dvt high d/t poor mobility. Continue to monitor. Disposition: Stable for DC, will go on oral antibiotic, Family and patient herself would like to go tomorrow. DG to med/surg today. DNI/DNR 10/14: Pt's Dtr, Son In Law, and Grand Dtr again updated at bedside during the day and went over plan of care, answered all their questions to full satisfaction. Admission and Anticipated Discharge Date Admission Date: October 07, 2021 Subjective Patient seen and examined at bedside as a follow-up of septic shock secondary to E. coli bacteremia associated with complicated UTI and right UVJ 4 mm obstructing kidney stone. Patient was lying in bed, on RA, NAD, patient's grand daughter at bedside - updated, pt on sinus rhythm, no new acute events overnight, reports eating okay and moving bowels okay, reports oral soreness along the lips and with swallowing food similar today but on exam slightly improving, complains she is still weak. Patient denies headache/dizziness/chest pain/palpitations/sore throat/increased shortness of breath/other review of symptoms. Physical Exam Physical Exam: GENERAL: Alert and oriented x3. NAD, on RA HEENT: No pallor, no icterus. Pupils equal, round and reactive to light. Oral mucosa moist. NECK: No JVD, no neck masses. Oral: erythema, maceration, scaling of lips and angles, erythema of tongue. HEART: S1 and S2 heard. Regular rate and rhythm. No murmur, no gallop. RESPIRATORY SYSTEM: Normal AP diameter. No accessory muscle use. No wheezing, no crackles ABDOMEN: Soft, bowel sounds present, nontender, no distention. CENTRAL NERVOUS SYSTEM: No facial droop. Speech is clear. Obeys simple commands. Moves extremities. EXTREMITIES: 1-2 + BLE edema, no erythema seen. Results & Data Results & Data ([facility]) Vital Signs (Past 12 Hours) Vital Signs Temp Pulse Pulse Resp BP Pulse Ox O2 Del Method 10/14/21 12:14 36.8 C 89 22 107/60 92 Room Air 10/14/21 08:00 Room Air 10/14/21 08:00 86 10/14/21 07:26 36.8 C 98 H 24 136/67 96 Room Air 10/14/21 04:00 36.9 C 102 H 16 147/86 H 94 Room Air
[2021-10-15] MEDS: CLOTRIMAZOLE 10 MG TROCHE BUCCAL SCH ×3 (00:44→11:29)
[2021-10-15] MEDS: FIRST - Mouthwash BLM 119 ML PO SCH ×2 (00:45→07:30)
[2021-10-15 05:58] LABS: Hematocrit (blood only) 37.7 % (34.1-44.9); Hemoglobin 12.7 g/dl (12.0-16.0); Mean Corpuscular Hemoglobin 32.4 pg (25.0-34.0); Mean Corpuscular Hgb Conc 33.7 g/dL (32.0-36.0); Mean Corpuscular Volume 96.2 fL (80.0-100.0); Mean Platelet Volume 12.9 fL (9.4-12.3); Platelet Count 101 K/uL (130-400); RDW Coefficient of Variation 13.8 % (11.5-14.5); RDW Standard Deviation 46.9 fL (36.4-46.3); Red Blood Count 3.92 M/uL (3.93-5.22)
[2021-10-15 06:20] LABS: BUN Creatinine Ratio 25.4 (10-20); Calcium 8.3 mg/dl (8.5-10.1); Est GFR (African American) 93.5 ml/min; Est GFR (Non-African American) 80.6 ml/min; Magnesium 1.9 mg/dl (1.7-2.4); Phosphorus 2.7 mg/dl (2.5-4.9); Potassium 3.3 mmol/L (3.5-5.1)
[2021-10-15] MEDS: ACETAMINOPHEN 325 MG TAB PO PRN (07:30)
[2021-10-15] MEDS: INSULIN ASPART PER UNIT SC SCH ×2 (07:39→11:32)
[2021-10-15] MEDS ORDERED: POTASSIUM CHLORIDE 20 MEQ/15 ML UDC PO STA (07:56)
[2021-10-15] MEDS: HEPARIN SOD 5,000 UNIT/0.5 ML VIAL SQ SCH (08:56)
[2021-10-15] MEDS: LOSARTAN POTASSIUM 25 MG TAB PO SCH (08:56)
[2021-10-15] MEDS: METOPROLOL SUCC 25MG EXT REL TAB PO SCH (08:57)
[2021-10-15] MEDS: PANTOprazole 40 MG TAB PO SCH (08:57)
[2021-10-15] MEDS: ROSUVASTATIN CALCIUM 10 MG TAB PO SCH (08:57)
[2021-10-15] MEDS: TAMSULOSIN HCL 0.4 MG CAP PO SCH (08:57)
[2021-10-15] MEDS: VITAMIN B COMPLEX TAB PO SCH (08:57)
[2021-10-15] MEDS: LANTUS PER UNIT CHARGE SQ SCH (08:57)
[2021-10-15] MEDS: cefTRIAXone SODIUM 2,000 MG in DEXTROSE 5% 50 ML IV SCH (11:29)
--- NOTE | 2021-10-15 12:39 | Discharge Summary ---
Date of Service October 15, 2021 Admission HPI Per Admitting Provider This is a 86-year-old female who has a significant past medical history of well- controlled T2DM, HTN, HLD, CKD stage III who presents to ED secondary to abdominal pain x1 year that is worsening. She states she has had lower abdominal pain bilaterally for the past year that is gradually worsened. This morning the pain got so severe that she opted to present to the ED. She also reports 1 day episode of feeling extremely chilled and feverish, nausea, episode of vomiting and one large loose episode of diarrhea. Her daughter is at bedside who states she felt it smelled like C. difficile. Today patient also reports dysuria, increased urgency and frequency with urination, but denies hematuria. Family states that they went to see PCP in the past for her lower abdominal pain and she had x-rays and MRIs which were unrevealing. She has never had a CT scan. She denies any lightheadedness, dizziness, URI symptoms, chest pain, shortness of breath, cough, hemoptysis, melena, hematochezia or hematuria. She states abdominal pain is in her lower abdomen bilaterally. It does not radiate. Upon arrival it was a 10 out of 10 and now is a 8 out of 10. She tried [id number] Tylenol at home with minimal improvement. She nothing makes the pain worse and she has never had anything like this in the past. In ED patient met sepsis criteria secondary to leukopenia, tachycardia and evidence of obstructing 4 mm stone at the right UVJ as well as possible colitis. She was started on broad-spectrum IV antibiotics with Zosyn. Urology was consulted and is planning to take patient to the OR this evening. She did receive 2.5 L of IV fluid thus far, broad-spectrum IV antibiotics with Zosyn and IV acetaminophen. Her initial lactic acid was elevated at 3.6. Admission Exam Per Admitting Provider Constitutional: WD/WN, clinically toxic appearing, elderly, female, is warm to touch and flushed at the face, vitals as above, NAD, sitting up in bed, pleasant, conversing easily Head: Normocephalic, Atraumatic Eyes: PERRL, conjunctivae normal, anicteric sclerae ENMT: external ear and nose normal, oropharynx normal Neck: trachea midline, no thyromegaly normal visual inspection Respiratory: normal respiratory effort, lungs clear to auscultation, no wheeze, rales, rhonchi. Normal insp/exp effort, no accessory muscle use Cardiovascular: Tachycardic rate, regular rhythm, no murmur, no edema Vessels: no JVD or carotid bruit Chest: normal inspection of chest Abdomen: normal bowel sounds, soft, tender to palpation in bilateral lower quadrants left greater than right, no rebound, no guarding, no rigidity, no hepatosplenomegaly Musculoskeletal: no cyanosis or clubbing, extremities motor strength 5/5 Skin: no rashes, warm and dry normal turgor Neurologic: PERRL, EOMI, accommodation nl, no face palsy, no dysarthria CN's II-XI intact bilaterally and moves all extremities Psychiatric: A+Ox3, euthymic affect Lymphatic: no cervical or axillary lymphadenopathy : deferred Principal Diagnosis Septic shock secondary to E. coli bacteremia likely secondary to urosepsis Right UVJ obstructing kidneys 4 mm stone with mild to moderate hydronephrosis status post stenting Discharge Exam GENERAL: Alert and oriented x3. NAD, on RA HEENT: No pallor, no icterus. Pupils equal, round and reactive to light. Oral mucosa moist. NECK: No JVD, no neck masses. Oral: erythema, maceration, scaling of lips and angles, oral cavity with poor opening d/t pain. HEART: S1 and S2 heard. Regular rate and rhythm. No murmur, no gallop. RESPIRATORY SYSTEM: Normal AP diameter. No accessory muscle use. No wheezing, no crackles ABDOMEN: Soft, bowel sounds present, nontender, no distention. CENTRAL NERVOUS SYSTEM: No facial droop. Speech is clear. Obeys simple commands. Moves extremities. EXTREMITIES: 1 + BLE edema - improving, no erythema seen. Discharge Data Allergies Allergy/AdvReac Type Severity Reaction Status Date / Time No Known Allergies Allergy Verified 10/07/21 16:02 Consultations 10/07/21 15:22 Consult Urology Routine ED Decision to Admit Stat 10/07/21 17:29 Consult Medical Transcription Routine 10/10/21 18:29 Consult Cardiology Routine 10/10/21 20:25 Consult Infectious Diseases Routine Procedures Performed Operation Date: 10/07/21 18:00 Actual Procedures p Cystoscopy, Right Retrograde Pyleogram,Stent placement Right(Right) - Marcus Sage MD Ordered Studies 10/07/21 FL retrograde includes kub Routine 10/07/21 12:40 CT abd pelvis IV con only Stat 10/13/21 12:11 US venous doppler LE BI Routine Hospital Course (1) Sepsis: (2) Kidney stone on right side: (3) Colitis: (4) Hydronephrosis concurrent with and due to calculi of kidney and ureter: (5) Hypokalemia: (6) Thrombocytopenia: (7) Diabetes mellitus, type II: (8) HTN (hypertension): (9) CKD (chronic kidney disease), stage III: Plan 86-year-old female who has a significant past medical history of well-controlled T2DM, HTN, HLD, CKD stage III presented to ED 10/07 secondary to abdominal pain x1 year that is worsening w/ 1 day h/o feeling extremely chilled/feverish w/ nausea/vomiting/diarrhea. She was managed for the following: Septic shock secondary to E. coli bacteremia likely secondary to urosepsis Complicated UTI, E. coli Right UVJ obstructing kidney 4 mm stone with mild to moderate hydronephrosis Presentation complicated with septic picture. 10/07 blood culture and 10/07 urine culture with E. coli 10/09 repeat blood culture: No growth so far Status post IVF, vasopressors and hydrocortisone early in admission Status post right ureteral stent placement by Dr. Marcus Sage 10/07/2021 WBC and procal trending down, patient afebrile, the sustained elevation in WBC likely 2/2 hydrocortisone. Continue with ceftriaxone 10/08,--->>changed to bactrim ds from 10/16 for next 6 days. Probiotics added. Urology evaluated, alvarez can be removed when able, flomax and toradol for stent comfort. Pt will need OP Uro f/u in 1-2 weeks upon DC. Acute hypoxemic respiratory failure Concern for acute HFrEF Likely Iatrogenic volume overload Patient does not use oxygen at home Patient's septic shock was complicated with volume overload secondary to IV fluid resuscitation, hence echo obtained 10/08 echo with EF of 45 to 50%, grade 1 diastolic dysfunction, no significant valvular pathology. Patient requiring oxygen around 2 L, not on home O2 per Pt---->>>resolved, on RA. Cardiology evaluated, reduced ejection fraction likely secondary to current acute process, recommendation to repeat echo in the next few months as outpatient. Lasix prn as tolerated for BLE fluid build up. Pt on small dose of KCL supplementation, pt to follow up w/ PCP as OP to determine if she further needs such supplementation. Afib RVR: new event over night of 10/12-10/13. TSH nl, pt on metoprolol 25 mg daily, on sinus rthythm. d/w cardio. Likely angular cheilitis/thrush vs dermatitis: lips and tongue erythema, pt w/ swallowing difficulty. clotrim torches, hydrocortisone cream. Electrolyte abnormalities: Monitor and replete. Thrombocytopenia: Likely secondary to sepsis, platelets trending up, no signs of bleeding, monitor. Other chronic medical conditions: T2DM, HTN A1c 5.7, continue with sliding scale, resume antihypertensive when able. DVT prophylaxis: Platelets improving, hep sq, risk of dvt high d/t poor mobility. Continue to monitor. DNI/DNR Patient being discharged to [facility] with following instruction at the point of discharge: Follow-up with your primary care physician within a week time. Follow-up with urology in 1-2 weeks time upon discharge for your stent management. You were treated for E. coli UTI and E. coli bacteremia, last negative blood culture was 10/09. You will be treated with total of 14 days of antibiotic. You received Rocephin IV for total of 8 days including today, start your oral antibiotic from tomorrow for next 6 days. Take probiotic for the duration of antibiotic. Get your blood work CBC and CMP done in 3 days and 1 week time upon discharge. Have the results forwarded to your primary care physician or the doctor at [facility] if you are still at [facility]. Since your potassium were running on the lower side while in hospital likely secondary to your decreased appetite due to your acute illness, you are being discharged on few days of small dose potassium supplement, you will need your blood work as an outpatient to determine whether or not you will need continued potassium supplementation. Follow-up with your PCP. You had an episode of A. fib with RVR while in hospital, likely triggered secondary to your acute illness. You were started on metoprolol 25 Mg daily, you will need to follow-up with your primary care physician in 2 to 4 weeks time for further discussion/management and up titration/down titration of your metoprolol doses. Your echocardiogram while in hospital showed reduced heart function, you will need repeat echocardiogram in the next few months as an outpatient to document resolution, follow-up with your primary care physician for the same. For your oral lesions, you are being discharged on Clotrim torches, and hydrocortisone cream to apply over the lips' lesions, if the lesions do not improve in the next few days, follow-up with your doctor at [facility] or with your primary care physician. Continue with physical therapy to gain your strength back at [facility]. Take medications as prescribed. Total Time Total Time Spent Total Time Spent (In Minutes): 45 Discharge Plan Discharge Items Patient Disposition: Transfer Inpatient Rehab Fac Reason For Visit: SEPSIS, UTI Discharge Diagnosis: Septic shock secondary to E. coli bacteremia likely secondary to urosepsis Right UVJ obstructing kidneys 4 mm stone with mild to moderate hydronephrosis status post stenting Activity: Resume your previous activity Non-emergency contact: Primary Care Provider Call non-emergency contact if: you have any medication questions, your symptoms worsen, your pain is not controlled and your temperature is above 101 Follow-up/Referrals: PCP,NO [Primary Care Provider] - Diet: Carb Consistent or DM2 Addtl Attending Provider Instructions: Follow-up with your primary care physician within a week time. Follow-up with urology in 1-2 weeks time upon discharge for your stent management. You were treated for E. coli UTI and E. coli bacteremia, last negative blood culture was 10/09. You will be treated with total of 14 days of antibiotic. You received Rocephin IV for total of 8 days including today, start your oral antibiotic from tomorrow for next 6 days. Take probiotic for the duration of antibiotic. Get your blood work CBC and CMP done in 3 days and 1 week time upon discharge. Have the results forwarded to your primary care physician or the doctor at [facility] if you are still at [facility]. Since your potassium were running on the lower side while in hospital likely secondary to your decreased appetite due to your acute illness, you are being discharged on few days of small dose potassium supplement, you will need your blood work as an outpatient to determine whether or not you will need continued potassium supplementation. Follow-up with your PCP. You had an episode of A. fib with RVR while in hospital, likely triggered secondary to your acute illness. You were started on metoprolol 25 Mg daily, you will need to follow-up with your primary care physician in 2 to 4 weeks time for further discussion/management and up titration/down titration of your metoprolol doses. Your echocardiogram while in hospital showed reduced heart function, you will need repeat echocardiogram in the next few months as an outpatient to document resolution, follow-up with your primary care physician for the same. For your oral lesions, you are being discharged on Clotrim torches, and hydrocortisone cream to apply over the lips' lesions, if the lesions do not improve in the next few days, follow-up with your doctor at [facility] or with your primary care physician. Continue with physical therapy to gain your strength back at [facility]. Take medications as prescribed. Pending Studies at Discharge: No Stand-Alone Forms: My [facility] Skilled Items Patient informed of condition?: Yes DNR: No (conditional code) Discharge Level of Care: Acute rehab Communicable Disease: No Discharge Prognosis: Stable Lines: None Urinary Catheter: No Medications and DC Order Prescriptions: New tamsulosin 0.4 mg Capsule 0.4 mg PO QAM Qty: 30 0RF metoprolol succinate 25 mg Tablet Extended Release 24 Hr 25 mg PO QAM Qty: 30 0RF acetaminophen 325 mg Tablet 650 mg PO Q8H PRN (Reason: fever or pain) Qty: 60 0RF vitamin B complex [Vitamins B Complex] Capsule 1 cap PO BID 10 Days Qty: 20 0RF potassium chloride 10 mEq capsule, extended release 10 meq PO DAILY Qty: 10 0RF hydrocortisone 0.5 % cream 1 applic topical BID Qty: 28.4 0RF Rx Instructions: apply twice a day over lips lesions clotrimazole 10 mg Jemima 10 mg buccal [id number] 10 Days Qty: 50 0RF sulfamethoxazole-trimethoprim [Bactrim DS] 800-160 mg tablet 1 tab PO BID 6 Days Qty: 12 0RF Probiotic 3 billion cell capsule 3,000 mmu cells PO DAILY 10 Days Qty: 10 0RF Rx Instructions: administer with a meal Continued cyanocobalamin (vitamin B-12) 500 mcg Tablet 500 mcg PO TUTH losartan 25 mg tablet 25 mg PO DAILY Multivitamin 50 Plus Tablet 1 tab PO DAILY metformin 500 mg tablet 500 mg PO DAILY rosuvastatin 10 mg tablet 10 mg PO DAILY aspirin 81 mg Tablet,Delayed Release (Dr/Ec) 81 mg PO MOWEFR Rx Instructions: Sat Discharge Orders: Discharge Order (Routine); Ordered 07/31/22 Ordered By: Sav Patricio/Other Patient Handouts: Managing Type 2 Diabetes Admission Data Admit Date/Time: 10/07/21 15:55 Attending Provider: Sav Villalobos Admit Provider: Genoveva Alex Primary Care Provider: PCP,SUMMER Other Providers: Rafia Champagne ; [facility] ; Genoveva Alex ; Marcus Sage ; Fab Chu ; Noe Urban ; Luis Alberto Prajapati ; Faiza Diego ; Paul Trejo I. ; Antelmo Rashid II ; Mikki Tirado ; Harsha Padilla ; Panfilo Crooks Other Interventions: Discharge Summary Assessment (RN) Last Done: 10/15/21 12:31
[2021-10-16] MEDS ORDERED: ASPIRIN 81 MG ECTAB PO SCH (09:00)
== END 2021-10-15 13:14 | DRG 853 ==
LOC: ED 12:25 → 1E 15:55 → SUATTDRO 15:55 → 1E 18:22
DX: E11.22 Type 2 diabetes mellitus with diabetic chronic kidney disease; D69.59 Other secondary thrombocytopenia; J96.01 Acute respiratory failure with hypoxia; A41.51 Sepsis due to Escherichia coli [E. coli]; N17.9 Acute kidney failure, unspecified; B37.0 Candidal stomatitis; I42.9 Cardiomyopathy, unspecified; N18.30 Chronic kidney disease, stage 3 unspecified; N13.6 Pyonephrosis; I13.0 Hypertensive heart and chronic kidney disease with heart failure and stage 1 through stage 4 chronic kidney disease, or unspecified chronic kidney disease; N13.0 Hydronephrosis with ureteropelvic junction obstruction; N39.0 Urinary tract infection, site not specified; R65.21 Severe sepsis with septic shock; Z66 Do not resuscitate; I50.23 Acute on chronic systolic (congestive) heart failure